=== PATIENT | female | born 1940 | race Asian ===

== ENCOUNTER 2017-05-30 16:58 | Inpatient (IN) | payer MEDICARE, OTHER ==
[~2017-05-30] VITALS: Ht 149.9 cm; Wt 65.0 kg
[2017-05-30 23:00] VITALS: BP 133/63; PULSE 77; RESP 18
[2017-05-30 23:24] VITALS: Ht 149.9 cm; Wt 65.0 kg
[2017-05-31] MEDS ORDERED: ONDANSETRON 4 MG INJ IV PRN (00:30)
[2017-05-31] MEDS: DEXTROSE 5%-0.9% NACL 1,000 ML IV SCH ×3 (01:24→20:30)
[2017-05-31] MEDS: CEFTRIAXONE 1 GM/50 ML (PMX) 50 ML IVPB SCH (01:24)
[2017-05-31] MEDS: morphine 4 MG/ML VIAL IV PRN ×3 (01:25→10:24)
[2017-05-31 03:24] VITALS: BP 111/55; RESP 18
[2017-05-31] MEDS: ONDANSETRON 4 MG INJ IV PRN (04:43)
[2017-05-31] MEDS: PANTOPRAZOLE 40 MG INJ IV SCH (05:32)
[2017-05-31 06:33] LABS: ADD SCAN DIFF NO
[2017-05-31 06:35] LABS: BASOPHILS % 0.2 % (0.0-2.0); HEMATOCRIT 43.3 % (37.0-47.0); HEMOGLOBIN 13.6 g/dl (12.0-16.0); LYMPHOCYTES % 5.7 % (15.0-51.0); MEAN CORPUSCULAR HEMOGLOBIN 26.6 pg (29.0-33.0); MEAN CORPUSCULAR HGB CONC 31.4 g/dl (32.0-37.0); MEAN CORPUSCULAR VOLUME 84.6 fl (82.0-101.0); MEAN PLATELET VOLUME 10.9 fl (7.4-10.4); MONOCYTE # 0.8 10^3/ul (0.3-0.9); MONOCYTES % 4.5 % (0.0-11.0); NEUTROPHIL # 15.7 10^3/ul (1.6-7.5); NEUTROPHILS % 89.1 % (39.0-77.0); PLATELET COUNT 265 10^3/UL (140-415); RED BLOOD COUNT 5.12 10^6/ul (4.20-5.40); RED CELL DISTRIBUTION WIDTH 13.4 % (11.5-14.5); WHITE BLOOD COUNT 17.7 10^3/ul (4.8-10.8)
[2017-05-31 07:09] LABS: ALBUMIN 4.2 g/dl (3.3-4.9); ALBUMIN/GLOBULIN RATIO 1.44; BILIRUBIN,INDIRECT 0.6 mg/dl (0-1.1); BILIRUBIN,TOTAL 0.6 mg/dl (0.2-1.3); CALCIUM 7.4 mg/dl (8.4-10.2); CREATININE 0.66 mg/dl (0.44-1.00); POTASSIUM 3.4 mmol/L (3.5-5.1); TOTAL PROTEIN 7.1 g/dl (6.1-8.1)
[2017-05-31] MEDS ORDERED: AMLO25PO MC (07:34)
[2017-05-31] MEDS ORDERED: DORZ10DR22 BOTH EYES (07:34)
[2017-05-31] MEDS ORDERED: LATA2.5D9 LEFT EYE (07:34)
[2017-05-31] MEDS ORDERED: LOSA50TA6 PO (07:34)
[2017-05-31] MEDS ORDERED: ASPI81TA3 PO (07:34)
[2017-05-31] MEDS ORDERED: FLUT9.9S NASAL (07:34)
[2017-05-31 07:39] VITALS: BP 134/62; RESP 18
[2017-05-31] MEDS ORDERED: morphine 4 MG/ML VIAL IV PRN (12:00)
[2017-05-31] MEDS ORDERED: HYDROmorphONE 1 MG/ML SYG IV PRN (14:30)
[2017-05-31 14:33] VITALS: BP 123/56; RESP 18
[2017-05-31] MEDS ORDERED: PIPER-TAZO 3.375 GM IV (PMX) 100 ML IVPB ONE (15:00)
[2017-05-31] MEDS ORDERED: POTASSIUM CHLORIDE 250 ML IVPB ONE (18:00)
[2017-05-31 20:47] VITALS: BP 130/70; RESP 18
[2017-05-31] MEDS ORDERED: LATANOPROST 0.005% 2.5 ML OPH LEFT EYE SCH (21:00)
[2017-05-31] MEDS ORDERED: DORZOLAMIDE/TIMOLOL 10 ML OPH BOTH EYES SCH (21:00)
--- NOTE | 2017-05-31 21:17 | RADRPT ---
PROCEDURE: MRCP. CLINICAL INDICATION: Pancreatitis. TECHNIQUE: MRCP was performed on a high field MRI scanner. Patient was examined without contrast. 3-D coronal rotating MIP images of the biliary tree are available for review. COMPARISON: Abdominal ultrasound 05/30/2017. CT abdomen/pelvis 05/30/2017. FINDINGS: The gallbladder is distended. There is no gallbladder wall thickening. Multiple round signal voids layer dependently within the gallbladder lumen compatible with cholelithiasis. There is no intrahe patic biliary duct dilatation. The common bile duct measures approximately 8 mm in greatest diamete r which is grossly unchanged from prior examinations. There is no discrete signal void within the c ommon bile duct to suggest the presence of choledocholithiasis. Normal tapering of the duct to the level of the ampulla is observed. There is no pancreatic duct dilatation. Marked peripancreatic ed phuc surrounding the pancreatic head and uncinate process is observed. Extensive edema is seen withi n the right retroperitoneum involving the anterior and posterior pararenal spaces. Perinephric porter a is also observed. This appears more prominent since prior CT. There is no evidence of organized fluid collection. The liver and spleen are homogeneous in signal intensity. The adrenal glands are unremarkable. The kidneys are symmetric in size and signal intensity. There is no hydronephrosis. The abdominal aorta is normal in caliber. The stomach is collapsed. The visualized portions of the small and large intestines are unremarkabl e. There is no ascites. Limited imaging of the lower thorax demonstrates a small right pleural effusion. IMPRESSION: Cholelithiasis with gallbladder distension. There is no gallbladder wall thickening. Common bile duct dilatation without evidence of choledocholithiasis. Extensive peripancreatic edema surrounding the head and uncinate process extending into the right re troperitoneum. Imaging findings are most compatible with acute pancreatitis. There is no evidence of organized fluid collection. RPTAT: HLST .Eugenie Bassett MD, Date Time Electronically viewed and signed by .Eugenie Bassett MD, on 05/31/2017 21:17 .T/
[2017-05-31] MEDS ORDERED: PIPER-TAZO 3.375 GM IV (PMX) 100 ML IVPB SCH (22:00)
[2017-05-31] MEDS: LATANOPROST 0.005% 2.5 ML OPH BOTH EYES SCH (22:25)
--- NOTE | 2017-05-31 23:38 | CONS ---
Date/Time of Note Date/Time of Note DATE: 05/31/17 TIME: 23:26 Assessment/Plan Assessment/Plan Chief Complaint/Hosp Course 1. Acute pancreatitis: likely 2/2 cholelithiasis; MRI abdomen: Cholelithiasis with gallbladder distension and no gallbladder wall thickening. Common bile duct dilatation without evidence of choledocholithiasis. Extensive peripancreatic edema surrounding the head and uncinate process extending into the right retroperitoneum. No evidence of organized fluid collection. -IV fluids -pain control -bowel rest -abx 2 Cholelithiasis -eventual lap amy when fully optimize 3. Leukocytosis: likely 2/2 above; elevated temp -supportive -as above 3.Hypokalemia -replete -monitor for cardiac arrhythmias 4. Hypocalcemia: likely 2/2 poor nutrition -nutrition optimization as patient condition permits -optimize lytes Patient seen and examined in collaboration with Dr. Zohaib Gaytan Problems: Consultation Date/Type/Reason Admit Date/Time May 30, 2017 at 22:37 Date of Consultation: May 31, 2017 Type of Consultation: surgical Reason for Consultation pancreatitis, gallstones Hx of Present Illness Christy Johnson is a 76 yo woman who presented to the ED with c/o epigastric pain radiating to right lower quadrant and back. Pain began after drinking chocolate drink on sunday and has been persistent since then. Associated symptoms include nausea and vomiting x1 with nonbloody nonbilious emesis. She denies fevers, chills, diarrhea, sob, cp, palpitations. No alleviating factors. MRI abdomen shows Cholelithiasis with gallbladder distension Extensive peripancreatic edema surrounding the head and uncinate process extending into the right retroperitoneum without evidence of organized fluid collection. Surgical consult was called to evaluate. Constitutional: No diaphoresis, No febrile Eyes: No visual change ENT: No pain, No sore throat Respiratory: No cough, No shortness of breath Cardiovascular: No chest pain, No lightheadedness Gastrointestinal: decreased appetite, passing stool (brown soft, non bloody), vomiting, No blood Genitourinary: No dysuria Musculoskeletal: back pain Skin: No bruising, No rash Neurologic: No headache, No seizure Psychological: No anxiety Past Medical History hypertension kidney stones uti sepsis bacteremia cataract glaucoma Past Surgical History kidney stone removal cataract removal Family History Significant Family History: no pertinent family hx Social History Alcohol Use: rarely Smoking Status: Never smoker Drug Use: none Exam/Review of Systems Vital Signs Vitals Vital Signs Date Time Temp Pulse Resp B/P Pulse Ox O2 Delivery O2 Flow Rate FiO2 05/31/17 20:47 99.7 92 18 130/70 96 05/30/17 23:00 Room Air Intake and Output 05/30/17 05/30/17 05/31/17 15:00 23:00 07:00 Intake Total 350 ml Balance 350 ml Exam Constitutional: alert, oriented, well developed Psych: anxiety (min) Head: atraumatic, normocephalic Eyes: nl lids, nl sclera ENMT: No mucosa pink and moist (pink and dry) Neck: supple Respiratory: clear to auscultation, normal air movement Cardiovascular: regular rate and rhythm, No murmurs/extra sounds Gastrointestinal: bowel sounds (x 4 quads), distended (min), rebound or guarding, tender Genitourinary - Female: No CVA tenderness Musculoskeletal: nl extremities to inspection Extremities: normal pulses, No edema Neurological: nl mental status, nl speech, nl strength Skin: nl turgor Results Result Diagram: 05/31/17 0552 05/31/17 0549 Results 24 hrs Laboratory Tests Test 05/31/17 05:49 05/31/17 05:52 Sodium Level 135 Potassium Level 3.4 L Chloride Level 106 Carbon Dioxide Level 22 Anion Gap 10 Blood Urea Nitrogen 15 Creatinine 0.66 Glucose Level 185 Calcium Level 7.4 L Total Bilirubin 0.6 Direct Bilirubin 0.00 Indirect Bilirubin 0.6 Aspartate Amino Transf (AST/SGOT) 33 Alanine Aminotransferase (ALT/SGPT) 23 Alkaline Phosphatase 49 Total Protein 7.1 Albumin 4.2 Globulin 2.90 Albumin/Globulin Ratio 1.44 Amylase Level 812 H Lipase 2611 H White Blood Count 17.7 H Red Blood Count 5.12 Hemoglobin 13.6 Hematocrit 43.3 Mean Corpuscular Volume 84.6 Mean Corpuscular Hemoglobin 26.6 L Mean Corpuscular Hemoglobin Concent 31.4 L Red Cell Distribution Width 13.4 Platelet Count 265 Mean Platelet Volume 10.9 H Neutrophils % 89.1 H Lymphocytes % 5.7 L Monocytes % 4.5 Eosinophils % 0.0 Basophils % 0.2 Nucleated Red Blood Cells % 0.0 Neutrophils # 15.7 H Lymphocytes # 1.0 Monocytes # 0.8 Eosinophils # 0.0 Basophils # 0.0 Nucleated Red Blood Cells # 0.0 Medications Medications Current Medications Ondansetron HCl 4 mg 4 mg Q6H PRN IV NAUSEA AND/OR VOMITING Last administered on 05/31/17 04:43; Admin Dose 4 MG; Start 05/31/17 at 00:30 Ceftriaxone Sodium 50 ml @ 100 mls/hr Q24H IVPB Last administered on 01:24; Admin Dose 100 MLS/HR; Start 05/31/17 at 01:00 Dextrose/Sodium Chloride (D5-NS) 1,000 ml @ 100 mls/hr Q10H IV Last administered on 05/31/17 11:45; Admin Dose 100 MLS/HR; Start 05/31/17 at 00:30 Pantoprazole (Protonix Iv) 40 mg DAILY@06 IV Last administered on 05/31/17 05: 32; Admin Dose 40 MG; Start 05/31/17 at 06:00 Acetaminophen (Tylenol Tab) 650 mg Q6H PRN PO PAIN AND OR ELEVATED TEMP; Start 05/31/17 at 00:30 Dorzolamide/ Timolol (Cosopt) 1 drop BID LEFT EYE ; Start 06/01/17 at 09:00 Hydromorphone HCl (Dilaudid) 0.5 mg Q3H PRN IV PAIN; Start 05/31/17 at 23:30 Latanoprost (Xalatan) 1 drop HS BOTH EYES Last administered on 05/31/17 22:25 ; Admin Dose 1 DROP; Start 06/01/17 at 21:00 DIDI MCCAIN NP May 31, 2017 23:37
[2017-06-01] MEDS: CEFTRIAXONE 1 GM/50 ML (PMX) 50 ML IVPB SCH (01:23)
[2017-06-01] MEDS: HYDROmorphONE 1 MG/ML SYG IV PRN ×7 (01:47→21:37)
[2017-06-01 01:57] VITALS: BP 142/82; PULSE 70; RESP 18
[2017-06-01 02:00] VITALS: BP 148/70; RESP 18
[2017-06-01] MEDS: DEXTROSE 5%-0.9% NACL 1,000 ML IV SCH ×3 (04:37→22:05)
[2017-06-01] MEDS: PANTOPRAZOLE 40 MG INJ IV SCH (05:18)
[2017-06-01 06:08] LABS: ADD SCAN DIFF NO
[2017-06-01 06:57] LABS: ALBUMIN 3.8 g/dl (3.3-4.9); ALBUMIN/GLOBULIN RATIO 1.35; BILIRUBIN,INDIRECT 0.7 mg/dl (0-1.1); BILIRUBIN,TOTAL 0.7 mg/dl (0.2-1.3); CALCIUM 6.7 mg/dl (8.4-10.2); CREATININE 0.87 mg/dl (0.44-1.00); POTASSIUM 4.2 mmol/L (3.5-5.1); TOTAL PROTEIN 6.6 g/dl (6.1-8.1)
[2017-06-01 08:08] VITALS: BP 144/67; RESP 22
--- NOTE | 2017-06-01 08:39 | PN ---
Date/Time of Note Date/Time of Note DATE: 06/01/17 TIME: 08:33 Assessment/Plan Lines/Catheters IV Catheter Type (from [facility], [place]): Peripheral IV Assessment/Plan Chief Complaint/Hosp Course 1. Acute pancreatitis: likely 2/2 cholelithiasis; MRI abdomen: Cholelithiasis with gallbladder distension and no gallbladder wall thickening. Common bile duct dilatation without evidence of choledocholithiasis. Extensive peripancreatic edema surrounding the head and uncinate process extending into the right retroperitoneum. No evidence of organized fluid collection; lipase improving -IV fluids -pain control -bowel rest -abx 2 Cholelithiasis -eventual lap amy when fully optimize 3. Leukocytosis: likely 2/2 above; elevated temp -supportive -as above 3.Hypokalemia: normalized -replete -monitor for cardiac arrhythmias 4. Hypocalcemia: likely 2/2 poor nutrition; -nutrition optimization as patient condition permits -optimize lytes Patient seen and examined in collaboration with Dr. Zohaib Gaytan Problems: Subjective 24 Hr Interval Summary Continues to have pain. No n/v/d, cp, sob, linder, dizziness/lightheadedness, palpitations, dysuria. + flatus. min temp overnight. Exam/Review of Systems Vital Signs Vitals Vital Signs Date Time Temp Pulse Resp B/P Pulse Ox O2 Delivery O2 Flow Rate FiO2 06/01/17 08:08 98.3 95 22 144/67 92 06/01/17 01:57 Room Air Intake and Output 05/31/17 05/31/17 06/01/17 15:00 23:00 07:00 Intake Total 700 ml 600 ml 9050 ml Output Total 30 ml 150 ml 50 ml Balance 670 ml 450 ml 9000 ml Exam Free Text/Dictation Constitutional: alert, oriented, well developed Psych: anxiety (min) Head: atraumatic, normocephalic Eyes: nl lids, nl sclera ENMT: No mucosa pink and moist (pink and dry) Neck: supple Respiratory: clear to auscultation, normal air movement Cardiovascular: regular rate and rhythm, No murmurs/extra sounds Gastrointestinal: bowel sounds (x 4 quads), distended (min), rebound or guarding, tender Genitourinary - Female: No CVA tenderness Musculoskeletal: nl extremities to inspection Extremities: normal pulses, No edema Neurological: nl mental status, nl speech, nl strength Skin: nl turgor, no discoloration Results Result Diagram: 05/31/17 0552 06/01/17 0538 DIDI MCCAIN NP Jun 01, 2017 08:39
[2017-06-01] MEDS: DORZOLAMIDE/TIMOLOL 10 ML OPH LEFT EYE SCH ×2 (08:46→20:32)
[2017-06-01 09:05] LABS: BASOPHIL # 0.1 10^3/ul (0.0-0.1); BASOPHILS % 0.3 % (0.0-2.0); HEMATOCRIT 41.4 % (37.0-47.0); HEMOGLOBIN 12.7 g/dl (12.0-16.0); LYMPHOCYTES # 1.4 10^3/ul (0.8-2.9); LYMPHOCYTES % 7.1 % (15.0-51.0); MEAN CORPUSCULAR HGB CONC 30.7 g/dl (32.0-37.0); MEAN CORPUSCULAR VOLUME 87.9 fl (82.0-101.0); MEAN PLATELET VOLUME 11.4 fl (7.4-10.4); MONOCYTE # 1.3 10^3/ul (0.3-0.9); MONOCYTES % 6.3 % (0.0-11.0); NEUTROPHIL # 17.3 10^3/ul (1.6-7.5); NEUTROPHILS % 85.7 % (39.0-77.0); PLATELET COUNT 250 10^3/UL (140-415); RED BLOOD COUNT 4.71 10^6/ul (4.20-5.40); RED CELL DISTRIBUTION WIDTH 13.8 % (11.5-14.5); WHITE BLOOD COUNT 20.2 10^3/ul (4.8-10.8)
--- NOTE | 2017-06-01 13:00 | PN ---
Date/Time of Note Date/Time of Note DATE: 06/01/17 TIME: 12:58 Assessment/Plan VTE Prophylaxis VTE Prophylaxis Intervention: SCD's Lines/Catheters IV Catheter Type (from Nrs): Peripheral IV Assessment/Plan Chief Complaint/Hosp Course 1. Acute pancreatitis. 2 Cholelithiasis 3.SIRS 3.electrolyte imbalance Problems: Subjective 24 Hr Interval Summary ENT: no complaints Respiratory: no complaints Gastrointestinal: decreased appetite, nausea, pain Skin: no complaints Endocrine: no complaints Exam/Review of Systems Vital Signs Vitals Vital Signs Date Time Temp Pulse Resp B/P Pulse Ox O2 Delivery O2 Flow Rate FiO2 06/01/17 08:08 98.3 95 22 144/67 92 06/01/17 01:57 Room Air Intake and Output 05/31/17 05/31/17 06/01/17 15:00 23:00 07:00 Intake Total 700 ml 600 ml 9050 ml Output Total 30 ml 150 ml 50 ml Balance 670 ml 450 ml 9000 ml Exam Constitutional: alert, oriented ENMT: nl external ears & nose Respiratory: clear to auscultation Gastrointestinal: rebound or guarding, tender Extremities: normal pulses Results Result Diagram: 06/01/17 0538 06/01/17 0538 Results 24 hrs Laboratory Tests Test 06/01/17 05:38 White Blood Count 20.2 H Red Blood Count 4.71 Hemoglobin 12.7 Hematocrit 41.4 Mean Corpuscular Volume 87.9 Mean Corpuscular Hemoglobin 27.0 L Mean Corpuscular Hemoglobin Concent 30.7 L Red Cell Distribution Width 13.8 Platelet Count 250 Mean Platelet Volume 11.4 H Neutrophils % 85.7 H Lymphocytes % 7.1 L Monocytes % 6.3 Eosinophils % 0.0 Basophils % 0.3 Nucleated Red Blood Cells % 0.0 Neutrophils # 17.3 H Lymphocytes # 1.4 Monocytes # 1.3 H Eosinophils # 0.0 Basophils # 0.1 Nucleated Red Blood Cells # 0.0 Sodium Level 136 Potassium Level 4.2 Chloride Level 112 H Carbon Dioxide Level 21 Anion Gap 7 L Blood Urea Nitrogen 24 H Creatinine 0.87 Glucose Level 189 Calcium Level 6.7 L Total Bilirubin 0.7 Direct Bilirubin 0.00 Indirect Bilirubin 0.7 Aspartate Amino Transf (AST/SGOT) 46 Alanine Aminotransferase (ALT/SGPT) 25 Alkaline Phosphatase 45 Total Protein 6.6 Albumin 3.8 Globulin 2.80 Albumin/Globulin Ratio 1.35 Amylase Level 457 #H Lipase 1259 H Medications Medications Current Medications Ondansetron HCl 4 mg 4 mg Q6H PRN IV NAUSEA AND/OR VOMITING Last administered on 05/31/17 04:43; Admin Dose 4 MG; Start 05/31/17 at 00:30 Ceftriaxone Sodium 50 ml @ 100 mls/hr Q24H IVPB Last administered on 01:23; Admin Dose 100 MLS/HR; Start 05/31/17 at 01:00 Dextrose/Sodium Chloride (D5-NS) 1,000 ml @ 125 mls/hr Q8H IV Last administered on 06/01/17 04:37; Admin Dose 100 MLS/HR; Start 05/31/17 at 00:30 Pantoprazole (Protonix Iv) 40 mg DAILY@06 IV Last administered on 06/01/17 05: 18; Admin Dose 40 MG; Start 05/31/17 at 06:00 Acetaminophen (Tylenol Tab) 650 mg Q6H PRN PO PAIN AND OR ELEVATED TEMP; Start 05/31/17 at 00:30 Dorzolamide/ Timolol (Cosopt) 1 drop BID LEFT EYE Last administered on 08:46; Admin Dose 1 DROP; Start 06/01/17 at 09:00 Hydromorphone HCl (Dilaudid) 0.5 mg Q3H PRN IV PAIN Last administered on 12:09; Admin Dose 0.5 MG; Start 05/31/17 at 23:30 Latanoprost (Xalatan) 1 drop HS BOTH EYES Last administered on 05/31/17 22:25 ; Admin Dose 1 DROP; Start 06/01/17 at 21:00 EAN INIGUEZ Jun 01, 2017 13:00
[2017-06-01] MEDS: CLONIDINE 0.1 MG/24 HR PATCH TRANSDERM SCH (14:57)
[2017-06-01 15:37] VITALS: BP 175/71; RESP 20
--- NOTE | 2017-06-01 16:51 | CONS ---
Date/Time of Note Date/Time of Note DATE: 06/01/17 TIME: 16:50 Consultation Date/Type/Reason Admit Date/Time May 30, 2017 at 22:37 Reason for Consultation This is Dr. Nelida Ramey dictating infectious consultation on Christy CASILLAS, date of admission is 05/31/2017 date of consultation the dictation is the reason for consultation is antibiotic management. Patient is a 76-year-old female who presented to the emergency room with epigastric pain radiating to the right lower quadrant and back. The pain has been persistent for the last day or 2. It is associated with nausea vomiting and nonbloody nonbilious emesis. She denies fever chills or diarrhea. An MRI of the abdomen showed cholelithiasis with gallbladder distention. She had extensive peripancreatic edema surrounding the head and uncinate process of the pancreas, extending into the right retroperitoneal area without evidence of fluid collection. A surgical consult was called to evaluate her abdomen. On admission her white count was 17.7 H&H 13.6 and 43.3 platelet count 265 BUN/ creatinine 15/0.66. Her amylase was 812 now 457 lipase 2611 now down to 1259. Patient was seen and examined by Dr. Zohaib Gaytan in the emergency room. Past medical history: 1 hypertension 2 kidney stones 3 UTI 4 cataracts 5 glaucoma 6 removal of kidney stones Family history noncontributory Social history: She does not smoke drink or abuse drugs Allergy: None to penicillin sulfa foods Medications per chart Review of systems noncontributory On physical examination patient is well-developed well-nourished female awake responsive in no acute distress. Vital signs are stable, she is afebrile SHEENT: Within normal limits Neck is supple Chest decreased breath sounds at the bases Heart without murmur gallop Abdomen is soft but tender diffusely, without rebound tenderness. Extremities: Without cyanosis clubbing or edema. Rectal genital exams deferred Neurological evaluation: Without focal neurological abnormalities. Impression plan: Patient was diagnosed with acute pancreatitis. She received Zosyn and then ceftriaxone in the emergency room. She was noted to have a white count of 17.7 and temperature of 99.7 on the . Her white count today is 20.2. We will draw 2 sets of blood cultures and continue ceftriaxone for now. Will observe on current therapy. Fever and leukocytosis most likely secondary to pancreatitis. Will dictate to the hospitalists and Dr. Gayatn. Thank you for this accessioner. . Constitutional: No diaphoresis, No febrile Eyes: No visual change ENT: no complaints Respiratory: no complaints Cardiovascular: No chest pain, No lightheadedness Gastrointestinal: decreased appetite, nausea, pain Genitourinary: No dysuria Musculoskeletal: back pain Skin: no complaints Neurologic: No headache, No seizure Endocrine: no complaints Psychological: anxiety (min) Social History Alcohol Use: rarely Smoking Status: Never smoker Drug Use: none Exam/Review of Systems Vital Signs Vitals Vital Signs Date Time Temp Pulse Resp B/P Pulse Ox O2 Delivery O2 Flow Rate FiO2 06/01/17 15:37 99.2 95 20 175/71 97 06/01/17 01:57 Room Air Intake and Output 05/31/17 05/31/17 06/01/17 15:00 23:00 07:00 Intake Total 700 ml 600 ml 9050 ml Output Total 30 ml 150 ml 50 ml Balance 670 ml 450 ml 9000 ml Results Result Diagram: 06/01/17 0538 06/01/17 0538 Results 24 hrs Laboratory Tests Test 06/01/17 05:38 White Blood Count 20.2 H Red Blood Count 4.71 Hemoglobin 12.7 Hematocrit 41.4 Mean Corpuscular Volume 87.9 Mean Corpuscular Hemoglobin 27.0 L Mean Corpuscular Hemoglobin Concent 30.7 L Red Cell Distribution Width 13.8 Platelet Count 250 Mean Platelet Volume 11.4 H Neutrophils % 85.7 H Lymphocytes % 7.1 L Monocytes % 6.3 Eosinophils % 0.0 Basophils % 0.3 Nucleated Red Blood Cells % 0.0 Neutrophils # 17.3 H Lymphocytes # 1.4 Monocytes # 1.3 H Eosinophils # 0.0 Basophils # 0.1 Nucleated Red Blood Cells # 0.0 Sodium Level 136 Potassium Level 4.2 Chloride Level 112 H Carbon Dioxide Level 21 Anion Gap 7 L Blood Urea Nitrogen 24 H Creatinine 0.87 Glucose Level 189 Calcium Level 6.7 L Total Bilirubin 0.7 Direct Bilirubin 0.00 Indirect Bilirubin 0.7 Aspartate Amino Transf (AST/SGOT) 46 Alanine Aminotransferase (ALT/SGPT) 25 Alkaline Phosphatase 45 Total Protein 6.6 Albumin 3.8 Globulin 2.80 Albumin/Globulin Ratio 1.35 Amylase Level 457 #H Lipase 1259 H Medications Medications Current Medications Ondansetron HCl 4 mg 4 mg Q6H PRN IV NAUSEA AND/OR VOMITING Last administered on 05/31/17 04:43; Admin Dose 4 MG; Start 05/31/17 at 00:30 Ceftriaxone Sodium 50 ml @ 100 mls/hr Q24H IVPB Last administered on 01:23; Admin Dose 100 MLS/HR; Start 05/31/17 at 01:00 Dextrose/Sodium Chloride (D5-NS) 1,000 ml @ 125 mls/hr Q8H IV Last administered on 06/01/17 13:46; Admin Dose 125 MLS/HR; Start 05/31/17 at 00:30 Pantoprazole (Protonix Iv) 40 mg DAILY@06 IV Last administered on 06/01/17 05: 18; Admin Dose 40 MG; Start 05/31/17 at 06:00 Acetaminophen (Tylenol Tab) 650 mg Q6H PRN PO PAIN AND OR ELEVATED TEMP; Start 05/31/17 at 00:30 Dorzolamide/ Timolol (Cosopt) 1 drop BID LEFT EYE Last administered on 08:46; Admin Dose 1 DROP; Start 06/01/17 at 09:00 Hydromorphone HCl (Dilaudid) 0.5 mg Q3H PRN IV PAIN Last administered on 15:31; Admin Dose 0.5 MG; Start 05/31/17 at 23:30 Latanoprost (Xalatan) 1 drop HS BOTH EYES Last administered on 05/31/17 22:25 ; Admin Dose 1 DROP; Start 06/01/17 at 21:00 Clonidine HCl (Catapres-Tts 1 Patch) 1 patch Q7D TRANSDERM Last administered on 06/01/17 14:57; Admin Dose 1 PATCH; Start 06/01/17 at 14:00 NELIDA RAMEY MD Jun 01, 2017 16:51
[2017-06-01 20:00] VITALS: BP 172/75; RESP 20
[2017-06-01] MEDS: LATANOPROST 0.005% 2.5 ML OPH BOTH EYES SCH (20:31)
[2017-06-02] VITALS (7 sets, daily range): BP systolic 147–178; BP diastolic 66–79; PULSE 100–102; RESP 18–22
[2017-06-02] MEDS: CEFTRIAXONE 1 GM/50 ML (PMX) 50 ML IVPB SCH (00:29)
[2017-06-02] MEDS: HYDROmorphONE 1 MG/ML SYG IV PRN ×7 (00:30→20:45)
[2017-06-02] MEDS: PANTOPRAZOLE 40 MG INJ IV SCH (05:31)
[2017-06-02] MEDS: DEXTROSE 5%-0.9% NACL 1,000 ML IV SCH ×3 (06:47→22:34)
[2017-06-02 06:55] LABS: ADD SCAN DIFF NO
[2017-06-02 07:01] LABS: ABNORMAL IP MESSAGE 1; HEMATOCRIT 34.2 % (37.0-47.0); HEMOGLOBIN 10.6 g/dl (12.0-16.0); MEAN CORPUSCULAR HEMOGLOBIN 27.3 pg (29.0-33.0); MEAN CORPUSCULAR VOLUME 88.1 fl (82.0-101.0); MEAN PLATELET VOLUME 11.5 fl (7.4-10.4); PLATELET COUNT 216 10^3/UL (140-415); RED BLOOD COUNT 3.88 10^6/ul (4.20-5.40)
[2017-06-02 07:16] LABS: CHOL/HDL RATIO 4.7 RATIO
[2017-06-02 07:37] LABS: CALCIUM 6.9 mg/dl (8.4-10.2); CREATININE 0.63 mg/dl (0.44-1.00); POTASSIUM 3.7 mmol/L (3.5-5.1)
[2017-06-02 07:46] LABS: CARCINOEMBRYONIC ANTIGEN 0.8 ng/ml (0.0-5.0)
[2017-06-02 07:50] LABS: CANCER ANTIGEN 19-9 26.3 U/ml (0.0-37.0)
[2017-06-02] MEDS: DORZOLAMIDE/TIMOLOL 10 ML OPH LEFT EYE SCH ×2 (08:29→20:45)
[2017-06-02 11:33] LABS: LYMPHOCYTES # 1.4 10^3/ul (0.8-2.9); MONOCYTE # 0.6 10^3/ul (0.3-0.9); NEUTROPHIL # 10.7 10^3/ul (1.6-7.5)
--- NOTE | 2017-06-02 11:57 | CONS ---
Date/Time of Note Date/Time of Note DATE: 06/02/17 TIME: 11:57 Assessment/Plan Assessment/Plan Chief Complaint/Hosp Course ID PROGRESS NOTE TOTAL ABX DAY #2 =>Ceftriaxone s/p Zosyn 24H INTERVAL SUMMARY * Sitting up in bed w/low flow O2 via NC, reports (+)wheezing earlier today cleared, still has upper mid-epigastric ABD pain * VSS, no fevers, doing OK, chart reviewed PHYSICAL EXAMINATION: GENERAL: VSS, NAD, no fevers HEENT: Unremarkable, no oral thrush NECK: Supple, CHEST: Equal chest rise bilaterally, without dyspnea on observation HEART: Pulse RRR ABDOMEN: Soft EXTREMITIES: Warm SKIN: Warm, dry ID ASSESSMENT: 77 yo F admitted with: 1. SIRS as evidenced by TMax 100.5, leukocytosis on admission 2/ #2 & #4 2. Acute pancreatitis most probably related to the passage of bile duct stone per GI 3. Cholelithiasis 4. Acute COPD exacerbation /Chronic asthmatic-bronchitis w/mild hypoxia and wheezing * Much improved w/Albuterol HHN 5. Electrolyte imbalance 6. Hx of nephrolithiasis and UTI -> UA not impressive for UTI INVASIVES: * PIV ABX ALLERGIES: AZITH CURRENT ABX: DAY #2 =>Ceftriaxone s/p Zosyn ID RECOMMENDATIONS: Continue current ABX & follow GI recommendations . . Problems: Consultation Date/Type/Reason Admit Date/Time May 30, 2017 at 22:37 Initial Consult Date 05/31/17 Type of Consultation: ID Exam/Review of Systems Vital Signs Vitals Vital Signs Date Time Temp Pulse Resp B/P Pulse Ox O2 Delivery O2 Flow Rate FiO2 06/02/17 07:43 97.5 93 20 152/66 99 06/01/17 01:57 Room Air Intake and Output 06/01/17 06/01/17 06/02/17 15:00 23:00 07:00 Intake Total 1000 ml 1000 ml 1050 ml Output Total 115 ml 1100 ml Balance 885 ml 1000 ml -50 ml Results Result Diagram: 06/02/17 0535 06/02/17 0607 Results 24 hrs Laboratory Tests Test 06/02/17 05:35 06/02/17 06:07 06/02/17 06:11 White Blood Count 16.0 #H Red Blood Count 3.88 L Hemoglobin 10.6 L Hematocrit 34.2 L Mean Corpuscular Volume 88.1 Mean Corpuscular Hemoglobin 27.3 L Mean Corpuscular Hemoglobin Concent 31.0 L Red Cell Distribution Width 14.0 Platelet Count 216 Mean Platelet Volume 11.5 H Neutrophils % 67.0 Band Neutrophils % 20.0 H Lymphocytes % 9.0 L Monocytes % 4.0 Eosinophils % Neutrophils # 10.7 H Lymphocytes # 1.4 Monocytes # 0.6 Eosinophils # Sodium Level 152 #H Potassium Level 3.7 Chloride Level 115 H Carbon Dioxide Level 25 Anion Gap 16 # Blood Urea Nitrogen 16 Creatinine 0.63 Glucose Level 175 Calcium Level 6.9 L Triglycerides Level 78 Cholesterol Level 129 LDL Cholesterol, Calculated 86 HDL Cholesterol 27 L Cholesterol/HDL Ratio 4.7 Carcinoembryonic Antigen 0.8 CA 19-9 Antigen 26.3 Medications Medications Current Medications Ondansetron HCl 4 mg 4 mg Q6H PRN IV NAUSEA AND/OR VOMITING Last administered on 05/31/17 04:43; Admin Dose 4 MG; Start 05/31/17 at 00:30 Ceftriaxone Sodium 50 ml @ 100 mls/hr Q24H IVPB Last administered on 00:29; Admin Dose 100 MLS/HR; Start 05/31/17 at 01:00 Dextrose/Sodium Chloride (D5-NS) 1,000 ml @ 125 mls/hr Q8H IV Last administered on 06/02/17 06:47; Admin Dose 125 MLS/HR; Start 05/31/17 at 00:30 Pantoprazole (Protonix Iv) 40 mg DAILY@06 IV Last administered on 06/02/17 05: 31; Admin Dose 40 MG; Start 05/31/17 at 06:00 Acetaminophen (Tylenol Tab) 650 mg Q6H PRN PO PAIN AND OR ELEVATED TEMP; Start 05/31/17 at 00:30 Dorzolamide/ Timolol (Cosopt) 1 drop BID LEFT EYE Last administered on 08:29; Admin Dose 1 DROP; Start 06/01/17 at 09:00 Hydromorphone HCl (Dilaudid) 0.5 mg Q3H PRN IV PAIN Last administered on 10:47; Admin Dose 0.5 MG; Start 05/31/17 at 23:30 Latanoprost (Xalatan) 1 drop HS BOTH EYES Last administered on 06/01/17 20:31 ; Admin Dose 1 DROP; Start 06/01/17 at 21:00 Clonidine HCl (Catapres-Tts 1 Patch) 1 patch Q7D TRANSDERM Last administered on 06/01/17 14:57; Admin Dose 1 PATCH; Start 06/01/17 at 14:00 LACY HOLM NP Jun 02, 2017 11:57
--- NOTE | 2017-06-02 12:33 | PN ---
Date/Time of Note Date/Time of Note DATE: 06/02/17 TIME: 12:26 Assessment/Plan Lines/Catheters IV Catheter Type (from [facility]): Peripheral IV Assessment/Plan Chief Complaint/Hosp Course 1. Acute pancreatitis: likely 2/2 cholelithiasis; MRI abdomen: Cholelithiasis with gallbladder distension and no gallbladder wall thickening. Common bile duct dilatation without evidence of choledocholithiasis. Extensive peripancreatic edema surrounding the head and uncinate process extending into the right retroperitoneum. No evidence of organized fluid collection; amylase/ lipase improving -IV fluids -pain control -bowel rest -abx 2 Cholelithiasis -eventual lap amy when fully optimize 3. Leukocytosis: likely 2/2 above; min temp overnight; improved; urine cultures ordered- patient with hesitancy -supportive -as above 3.Hypokalemia: normalized -replete -monitor for cardiac arrhythmias 4. Hypocalcemia: likely 2/2 poor nutrition; -nutrition optimization as patient condition permits -optimize lytes 5. Hypernatremia -judicious fluid management Patient seen and examined in collaboration with Dr. Zohaib Gaytan Problems: Subjective 24 Hr Interval Summary Min temp overnight. Continuing to have abdominal pain. wheezing. +flatus/ no bm , No linder, dizziness, sz, sob, cp, palpitations,n/v/d, chills. Exam/Review of Systems Vital Signs Vitals Vital Signs Date Time Temp Pulse Resp B/P Pulse Ox O2 Delivery O2 Flow Rate FiO2 06/02/17 07:43 97.5 93 20 152/66 99 06/01/17 01:57 Room Air Intake and Output 06/01/17 06/01/17 06/02/17 15:00 23:00 07:00 Intake Total 1000 ml 1000 ml 1050 ml Output Total 115 ml 1100 ml Balance 885 ml 1000 ml -50 ml Exam Free Text/Dictation Constitutional: alert, oriented, well developed, diaphoretic Psych: anxiety (min) Head: atraumatic, normocephalic Eyes: nl lids, nl sclera ENMT: No mucosa pink and moist (pink and dry) Neck: supple Respiratory: wheezing Cardiovascular: regular rate and rhythm, No murmurs/extra sounds Gastrointestinal: bowel sounds (x 4 quads), distended (min), rebound or guarding, tender Genitourinary - Female: No CVA tenderness Musculoskeletal: nl extremities to inspection Extremities: normal pulses, No edema Neurological: nl mental status, nl speech, nl strength Skin: nl turgor, no discoloration Results Result Diagram: 06/02/17 0535 06/02/17 0607 DIDI MCCAIN NP Jun 02, 2017 12:33
--- NOTE | 2017-06-02 12:36 | CONS ---
Date/Time of Note Date/Time of Note DATE: 06/02/17 TIME: 12:33 Assessment/Plan Assessment/Plan Additional Assessment/Plan 1. Acute pancreatitis most probably related to the passage of bile duct stone 2. Hypertension 3. Kidneys stone by history 4. UTI 5. Leukocytosis which is trending down. Plan Patient's CA 199 and CEA both were within normal limit Her triglycerides level was also normal. Given the history of gallstone and mildly dilated bile duct I am more in favor of biliary pancreatitis. Once pancreatitis is resolved would prefer to have cholecystectomy to prevent the second attack in the future Based on MRI and CT scan I doubt patient has autoimmune pancreatitis. Due to malfunctioning of the dictation, dictator reports are not coming on time in the computer. Consultation Date/Type/Reason Admit Date/Time May 30, 2017 at 22:37 Initial Consult Date 05/31/17 Type of Consultation: ID 24 HR Interval Summary Free Text/Dictation Patient still has significant abdominal pain. No nausea no vomiting no GI bleeding No chest pain or shortness of breath Exam/Review of Systems Vital Signs Vitals Vital Signs Date Time Temp Pulse Resp B/P Pulse Ox O2 Delivery O2 Flow Rate FiO2 06/02/17 07:43 97.5 93 20 152/66 99 06/01/17 01:57 Room Air Intake and Output 06/01/17 06/01/17 06/02/17 15:00 23:00 07:00 Intake Total 1000 ml 1000 ml 1050 ml Output Total 115 ml 1100 ml Balance 885 ml 1000 ml -50 ml Exam Constitutional: alert, oriented, well developed Psych: nl mood/affect, no complaints Head: atraumatic, normocephalic Eyes: EOMI, PERRL, nl conjunctiva, nl lids, nl sclera ENMT: nl external ears & nose, nl lips & teeth, nl nasal mucosa & septum Neck: non-tender, supple Respiratory: clear to auscultation, normal air movement Cardiovascular: nl pulses, regular rate and rhythm Gastrointestinal: nl liver, spleen, non-tender, soft Musculoskeletal: nl extremities to inspection, nl gait and stance Extremities: normal pulses Neurological: [employer] II-XII intact, nl mental status, nl speech, nl strength Skin: nl turgor, No rash or lesions Lymph: nl lymph nodes Results Result Diagram: 06/02/17 0535 06/02/17 0607 Results 24 hrs Laboratory Tests Test 06/02/17 05:35 06/02/17 06:07 06/02/17 06:11 White Blood Count 16.0 #H Red Blood Count 3.88 L Hemoglobin 10.6 L Hematocrit 34.2 L Mean Corpuscular Volume 88.1 Mean Corpuscular Hemoglobin 27.3 L Mean Corpuscular Hemoglobin Concent 31.0 L Red Cell Distribution Width 14.0 Platelet Count 216 Mean Platelet Volume 11.5 H Neutrophils % 67.0 Band Neutrophils % 20.0 H Lymphocytes % 9.0 L Monocytes % 4.0 Eosinophils % Neutrophils # 10.7 H Lymphocytes # 1.4 Monocytes # 0.6 Eosinophils # Sodium Level 152 #H Potassium Level 3.7 Chloride Level 115 H Carbon Dioxide Level 25 Anion Gap 16 # Blood Urea Nitrogen 16 Creatinine 0.63 Glucose Level 175 Calcium Level 6.9 L Triglycerides Level 78 Cholesterol Level 129 LDL Cholesterol, Calculated 86 HDL Cholesterol 27 L Cholesterol/HDL Ratio 4.7 Carcinoembryonic Antigen 0.8 CA 19-9 Antigen 26.3 Medications Medications Current Medications Ondansetron HCl 4 mg 4 mg Q6H PRN IV NAUSEA AND/OR VOMITING Last administered on 05/31/17 04:43; Admin Dose 4 MG; Start 05/31/17 at 00:30 Ceftriaxone Sodium 50 ml @ 100 mls/hr Q24H IVPB Last administered on 00:29; Admin Dose 100 MLS/HR; Start 05/31/17 at 01:00 Dextrose/Sodium Chloride (D5-NS) 1,000 ml @ 125 mls/hr Q8H IV Last administered on 06/02/17 06:47; Admin Dose 125 MLS/HR; Start 05/31/17 at 00:30 Pantoprazole (Protonix Iv) 40 mg DAILY@06 IV Last administered on 06/02/17 05: 31; Admin Dose 40 MG; Start 05/31/17 at 06:00 Acetaminophen (Tylenol Tab) 650 mg Q6H PRN PO PAIN AND OR ELEVATED TEMP; Start 05/31/17 at 00:30 Dorzolamide/ Timolol (Cosopt) 1 drop BID LEFT EYE Last administered on 08:29; Admin Dose 1 DROP; Start 06/01/17 at 09:00 Hydromorphone HCl (Dilaudid) 0.5 mg Q3H PRN IV PAIN Last administered on 10:47; Admin Dose 0.5 MG; Start 05/31/17 at 23:30 Latanoprost (Xalatan) 1 drop HS BOTH EYES Last administered on 06/01/17 20:31 ; Admin Dose 1 DROP; Start 06/01/17 at 21:00 Clonidine HCl (Catapres-Tts 1 Patch) 1 patch Q7D TRANSDERM Last administered on 06/01/17 14:57; Admin Dose 1 PATCH; Start 06/01/17 at 14:00 KILEY MATTHEW MD Jun 02, 2017 12:36
[2017-06-02 12:42] LABS: AMYLASE 301 U/L (11-123)
[2017-06-02 13:12] LABS: ADD UMIC YES; UR BILIRUBIN (Dip) NEGATIVE (NEGATIVE); UR BLOOD (Dip) 3+ (NEGATIVE); UR CLARITY CLEAR (CLEAR); UR COLOR LT. YELLOW (YELLOW); UR KETONES (Dip) NEGATIVE (NEGATIVE); UR LEUKOCYTE ESTERASE (Dip) NEGATIVE (NEGATIVE); UR NITRITE (Dip) NEGATIVE (NEGATIVE); UR TOTAL PROTEIN (Dip) 1+ (NEGATIVE); UR UROBILINOGEN (Dip) 0.2 E.U./dL (0.1-1.0)
[2017-06-02] MEDS ORDERED: ALBUTEROL 0.083% (NEB) 2.5 MG/3 ML AMP HHN SCH (14:00)
[2017-06-02] MEDS ORDERED: IPRATROPIUM (NEB) 0.5 MG/2.5 ML AMP HHN SCH (14:00)
[2017-06-02] MEDS: ALBUTEROL/IPRATROPIUM (NEB) 3 ML AMP HHN SCH ×2 (14:27→20:17)
--- NOTE | 2017-06-02 17:49 | PN ---
Date/Time of Note Date/Time of Note DATE: 06/02/17 TIME: 17:43 Assessment/Plan VTE Prophylaxis VTE Prophylaxis Intervention: ambulation Lines/Catheters IV Catheter Type (from [facility]): Peripheral IV Assessment/Plan Chief Complaint/Hosp Course 1. Acute pancreatitis. 2 Cholelithiasis 3.SIRS 3.electrolyte imbalance Problems: Assessment/Plan 1. continue current regime 2. Pain control Subjective 24 Hr Interval Summary Constitutional: improved Respiratory: no complaints, shortness of breath, wheezing Exam/Review of Systems Vital Signs Vitals Vital Signs Date Time Temp Pulse Resp B/P Pulse Ox O2 Delivery O2 Flow Rate FiO2 06/02/17 17:03 2.0 06/02/17 16:27 97.3 89 22 177/72 98 06/02/17 14:28 Nasal Cannula Intake and Output 06/01/17 06/01/17 06/02/17 15:00 23:00 07:00 Intake Total 1000 ml 1000 ml 1050 ml Output Total 115 ml 1100 ml Balance 885 ml 1000 ml -50 ml Exam Constitutional: alert, oriented Neck: supple Respiratory: clear to auscultation Gastrointestinal: distended, soft, surgical scars Results Result Diagram: 06/02/17 0535 06/02/17 0607 Results 24 hrs Laboratory Tests Test 06/02/17 05:35 06/02/17 06:07 06/02/17 06:11 06/02/17 12:50 White Blood Count 16.0 #H Red Blood Count 3.88 L Hemoglobin 10.6 L Hematocrit 34.2 L Mean Corpuscular Volume 88.1 Mean Corpuscular Hemoglobin 27.3 L Mean Corpuscular Hemoglobin Concent 31.0 L Red Cell Distribution Width 14.0 Platelet Count 216 Mean Platelet Volume 11.5 H Neutrophils % 67.0 Band Neutrophils % 20.0 H Lymphocytes % 9.0 L Monocytes % 4.0 Eosinophils % Neutrophils # 10.7 H Lymphocytes # 1.4 Monocytes # 0.6 Eosinophils # Sodium Level 152 #H Potassium Level 3.7 Chloride Level 115 H Carbon Dioxide Level 25 Anion Gap 16 # Blood Urea Nitrogen 16 Creatinine 0.63 Glucose Level 175 Calcium Level 6.9 L Triglycerides Level 78 Cholesterol Level 129 LDL Cholesterol, Calculated 86 HDL Cholesterol 27 L Cholesterol/HDL Ratio 4.7 Amylase Level 301 #H Lipase 657 H Carcinoembryonic Antigen 0.8 CA 19-9 Antigen 26.3 Urine Color LT. YELLOW Urine Clarity CLEAR Urine pH 6.0 Urine Specific [place] 1.020 Urine Ketones NEGATIVE Urine Nitrite NEGATIVE Urine Bilirubin NEGATIVE Urine Urobilinogen 0.2 E.U./dL Urine Leukocyte Esterase NEGATIVE Urine Microscopic RBC 2-5 Urine Hemoglobin 3+ H Urine Glucose 0.25% H Urine Total Protein 1+ H Medications Medications Current Medications Ondansetron HCl 4 mg 4 mg Q6H PRN IV NAUSEA AND/OR VOMITING Last administered on 05/31/17 04:43; Admin Dose 4 MG; Start 05/31/17 at 00:30 Ceftriaxone Sodium 50 ml @ 100 mls/hr Q24H IVPB Last administered on 00:29; Admin Dose 100 MLS/HR; Start 05/31/17 at 01:00 Dextrose/Sodium Chloride (D5-NS) 1,000 ml @ 125 mls/hr Q8H IV Last administered on 06/02/17 15:47; Admin Dose 125 MLS/HR; Start 05/31/17 at 00:30 Pantoprazole (Protonix Iv) 40 mg DAILY@06 IV Last administered on 06/02/17 05: 31; Admin Dose 40 MG; Start 05/31/17 at 06:00 Acetaminophen (Tylenol Tab) 650 mg Q6H PRN PO PAIN AND OR ELEVATED TEMP; Start 05/31/17 at 00:30 Dorzolamide/ Timolol (Cosopt) 1 drop BID LEFT EYE Last administered on 08:29; Admin Dose 1 DROP; Start 06/01/17 at 09:00 Hydromorphone HCl (Dilaudid) 0.5 mg Q3H PRN IV PAIN Last administered on 17:32; Admin Dose 0.5 MG; Start 05/31/17 at 23:30 Latanoprost (Xalatan) 1 drop HS BOTH EYES Last administered on 06/01/17 20:31 ; Admin Dose 1 DROP; Start 06/01/17 at 21:00 Clonidine HCl (Catapres-Tts 1 Patch) 1 patch Q7D TRANSDERM Last administered on 06/01/17 14:57; Admin Dose 1 PATCH; Start 06/01/17 at 14:00 EAN INIGUEZ Jun 02, 2017 17:48
[2017-06-02 18:25] LABS: ADD SCAN DIFF NO
[2017-06-02 18:27] LABS: ABNORMAL IP MESSAGE 1; BASOPHIL # 0.1 10^3/ul (0.0-0.1); BASOPHILS % 0.4 % (0.0-2.0); EOSINOPHILS % 0.1 % (0.0-7.0); HEMATOCRIT 34.5 % (37.0-47.0); HEMOGLOBIN 10.9 g/dl (12.0-16.0); LYMPHOCYTES # 0.7 10^3/ul (0.8-2.9); LYMPHOCYTES % 4.9 % (15.0-51.0); MEAN CORPUSCULAR HEMOGLOBIN 27.7 pg (29.0-33.0); MEAN CORPUSCULAR HGB CONC 31.6 g/dl (32.0-37.0); MEAN CORPUSCULAR VOLUME 87.8 fl (82.0-101.0); MONOCYTE # 1.1 10^3/ul (0.3-0.9); NEUTROPHIL # 11.9 10^3/ul (1.6-7.5); NEUTROPHILS % 85.8 % (39.0-77.0); PLATELET COUNT 222 10^3/UL (140-415); RED BLOOD COUNT 3.93 10^6/ul (4.20-5.40); RED CELL DISTRIBUTION WIDTH 13.7 % (11.5-14.5); WHITE BLOOD COUNT 13.9 10^3/ul (4.8-10.8)
[2017-06-02] MEDS: hydrALAzine 20 MG INJ IV SCH ×2 (19:10→23:11)
[2017-06-02] MEDS: ONDANSETRON 4 MG INJ IV PRN (20:36)
[2017-06-02] MEDS: LATANOPROST 0.005% 2.5 ML OPH BOTH EYES SCH (20:46)
[2017-06-02] MEDS: ACETAMINOPHEN 325 MG TAB PO PRN (23:33)
[2017-06-03] VITALS (12 sets, daily range): BP systolic 132–152; BP diastolic 6–90; PULSE 94–114; RESP 16–24
[2017-06-03] MEDS: ALBUTEROL/IPRATROPIUM (NEB) 3 ML AMP HHN SCH ×4 (01:05→19:35)
[2017-06-03] MEDS: CEFTRIAXONE 1 GM/50 ML (PMX) 50 ML IVPB SCH (01:16)
[2017-06-03] MEDS: HYDROmorphONE 1 MG/ML SYG IV PRN ×6 (01:16→21:57)
[2017-06-03] MEDS: DEXTROSE 5%-0.9% NACL 1,000 ML IV SCH (02:51)
[2017-06-03] MEDS: PANTOPRAZOLE 40 MG INJ IV SCH (06:18)
[2017-06-03] MEDS: hydrALAzine 20 MG INJ IV SCH ×3 (06:18→18:13)
[2017-06-03 06:35] LABS: ALBUMIN 3.7 g/dl (3.3-4.9); ALBUMIN/GLOBULIN RATIO 1.27; BILIRUBIN,DIRECT 0.4 mg/dl (0.00-0.20); BILIRUBIN,INDIRECT 1.4 mg/dl (0-1.1); BILIRUBIN,TOTAL 1.8 mg/dl (0.2-1.3); CALCIUM 7.4 mg/dl (8.4-10.2); CREATININE 0.6 mg/dl (0.44-1.00); TOTAL PROTEIN 6.6 g/dl (6.1-8.1)
[2017-06-03] MEDS: ACETAMINOPHEN 325 MG TAB PO PRN (07:05)
[2017-06-03] MEDS ORDERED: FUROSEMIDE 20 MG INJ IV STA (07:18)
[2017-06-03] MEDS ORDERED: POTASSIUM CHLORIDE (SR) 20 MEQ TAB PO STA (07:25)
--- NOTE | 2017-06-03 08:16 | RADRPT ---
PROCEDURE: XR Chest. CLINICAL INDICATION: 77 real female with wheezing and shortness of breath. TECHNIQUE: Single frontal view of the chest was obtained. COMPARISON: None FINDINGS: The soft tissues are generous. There are degenerative osteophytes in the thoracic spine. The left ventricle is enlarged. The cardiomediastinal silhouette and hilar structures are normal. The pulmon ruddy vasculature is equilibrated. There are vascular calcifications in the aortic arch. There are pl ate-like densities consistent with atelectasis in the bases of the lungs. A small right pleural eff usion is suspected. Thickening of the minor fissure from pleural scarring can have a similar appear ance. IMPRESSION: 1. Left ventricular enlargement with increased pulmonary vascularity suspicious for mild CHF with love bsegmental atelectasis in the bases of the lungs and elevation of the right diaphragm. 2. Atherosclerosis aortic arch. 3. Spondylosis of the thoracic spine. RPTAT:AAJJ Physician Meghann Date Time Electronically viewed and signed by Kingston Russ Physician on 06/03/2017 08:15 JOSELITO/
--- NOTE | 2017-06-03 08:43 | HP ---
DATE OF ADMISSION: 05/30/2017 HISTORY OF PRESENT ILLNESS: The patient was transferred from the transferring hospital when she was seen there with abdominal pain. The patient is noted to have lactate 0.80. The patient also has earlier lactate 3.6. The patient's laboratory: WBC 12, hematocrit 38.9, platelet count 236. The patient's sodium 142, potassium of 4.7, creatinine 0.75. The patient's albumin 4.4. The patient is noted to have alkaline phosphatase 55 and the patient received morphine, Zofran, saline at the transferring hospital. PAST MEDICAL HISTORY: Positive for hypertension. The patient has a history of eye surgery, history of _ surgery. SOCIAL HISTORY: Negative. ALLERGIES: AZITHROMYCIN. MEDICATIONS: 1. Tylenol. 2. Amlodipine. 3. Aspirin. 4. Eye drops. 5. Fluticasone. 6. Losartan. REVIEW OF SYSTEMS: HEENT: Unremarkable. RESPIRATORY: Unremarkable. CARDIOVASCULAR: Unremarkable. GASTROINTESTINAL: Abdomen: Nausea. Abdominal pain. No masses. EXTREMITIES: Unremarkable. NEUROLOGIC: LOBSTER CATCHER unremarkable. PHYSICAL EXAMINATION: GENERAL APPEARANCE: The patient is awake, alert. VITAL SIGNS: Vital signs are stable. HEENT: Head is atraumatic, normocephalic. Pupils equal, reactive to light. NECK: Supple. There is no JVD. LUNGS: Clear. CARDIAC: CVS: S1, S2 normal. ABDOMEN: Soft. Tender in the right upper quadrant and epigastric area. Bowel sounds are positive. EXTREMITIES: No cyanosis, clubbing or edema. NEUROLOGIC: LOBSTER CATCHER: The patient is awake, alert. No focal deficits. DATA: As mentioned above. The patient's lipase 2830, glucose 174, WBC 12. The patient's CT abdomen and pelvis with contrast shows cholelithiasis with peripancreatic inflammatory changes and fluid surrounding the peripancreatic head, duodenum and fluid tracking into the right anterior pararenal space. The patient has a dilated common bile duct. The CBD stenosis, a stone is of concern. The patient also had ultrasound of the abdomen, shows cholelithiasis, mild common bile duct dilatation. IMPRESSION: 1. The patient has acute pancreatitis, possible gallstone pancreatitis. 2. Rule out common bile duct stone. 3. Hyperglycemia and leukocytosis. 4. Electrolyte imbalance. 5. History of hypertension. 6. The patient also has dyspepsia. EKG shows sinus bradycardia, rate of 49. PLAN: Keep her n.p.o., IV fluids. Antibiotic. Pain medication. Surgical consultation. Orders were done. Dictated By: Jonathon Whitaker MD /[email or web address]/bon /Document#: [id number] [email or web address]
--- NOTE | 2017-06-03 09:47 | PN ---
Date/Time of Note Date/Time of Note DATE: 06/03/17 TIME: 09:39 Assessment/Plan Lines/Catheters IV Catheter Type (from [facility]): Peripheral IV Assessment/Plan Chief Complaint/Hosp Course 1. Acute pancreatitis: likely 2/2 cholelithiasis; MRI abdomen: Cholelithiasis with gallbladder distension and no gallbladder wall thickening. Common bile duct dilatation without evidence of choledocholithiasis. Extensive peripancreatic edema surrounding the head and uncinate process extending into the right retroperitoneum. No evidence of organized fluid collection; amylase/ lipase improving; pain improved -judicious IV fluids -pain control -bowel rest -abx 2 Cholelithiasis: total bili increasing -eventual lap amy when fully optimize 3. Leukocytosis with bandemia: likely 2/2 above; min temp overnight; improved; improved -supportive -as above 3.Hypokalemia: lasix given -replete -monitor for cardiac arrhythmias 4. Hypocalcemia: likely 2/2 poor nutrition; -nutrition optimization as patient condition permits -optimize lytes 5. Hypernatremia -judicious fluid management 6. Shortness of breath: fluid overload; CXR: Left ventricular enlargement with increased pulmonary vascularity suspicious for mild CHF with subsegmental atelectasis in lung bases; -diuretics -breathing tx -judicious iv fluids Patient seen and examined in collaboration with Dr. Zohaib Gaytan Problems: Subjective 24 Hr Interval Summary No fevers. Abdominal pain improved. No wheezing +flatus/ no bm, No linder, dizziness , sz, sob, cp, palpitations,n/v/d, chills. Exam/Review of Systems Vital Signs Vitals Vital Signs Date Time Temp Pulse Resp B/P Pulse Ox O2 Delivery O2 Flow Rate FiO2 06/03/17 08:30 116 16 97 Nasal Cannula 2.0 06/03/17 07:59 97.7 132/61 Intake and Output 06/02/17 06/02/17 06/03/17 15:00 23:00 07:00 Intake Total 1000 ml 1250 ml Output Total 400 ml Balance 600 ml 1250 ml Exam Free Text/Dictation Constitutional: alert, oriented, well developed Psych: nl mood Head: atraumatic, normocephalic Eyes: nl lids, nl sclera ENMT: No mucosa pink and moist (pink and dry) Neck: supple Respiratory: crackles Cardiovascular: regular rate and rhythm, No murmurs/extra sounds Gastrointestinal: bowel sounds (x 4 quads), distended (min), rebound or guarding, min tender Genitourinary - Female: No CVA tenderness Musculoskeletal: nl extremities to inspection Extremities: normal pulses, No edema Neurological: nl mental status, nl speech, nl strength Skin: nl turgor, no discoloration Results Result Diagram: 06/02/17 1805 06/03/17 0528 DIDI MCCAIN NP Jun 03, 2017 09:47
[2017-06-03] MEDS: DORZOLAMIDE/TIMOLOL 10 ML OPH LEFT EYE SCH ×2 (10:28→20:43)
--- NOTE | 2017-06-03 13:19 | CONS ---
Date/Time of Note Date/Time of Note DATE: 06/03/17 TIME: 13:11 Assessment/Plan Assessment/Plan Chief Complaint/Hosp Course Assessment/Plan Chief Complaint/Hosp Course ID PROGRESS NOTE TOTAL ABX DAY #2 =>Ceftriaxone s/p Zosyn 24H INTERVAL SUMMARY * Sitting up in the chair. Complains of Generalized Abdominal Pain and Right Upper Quadrant Abdominal Pain. PHYSICAL EXAMINATION: GENERAL: VSS, NAD, no fevers HEENT: Unremarkable, no oral thrush NECK: Supple, CHEST: Equal chest rise bilaterally, without dyspnea on observation HEART: Pulse RRR ABDOMEN: Soft EXTREMITIES: Warm SKIN: Warm, dry ID ASSESSMENT: 77 yo F admitted with: 1. SIRS as evidenced by TMax 100.5, leukocytosis on admission 2/2 #2 & #4 2. Acute pancreatitis most probably related to the passage of bile duct stone per GI 3. Cholelithiasis 4. Acute COPD exacerbation /Chronic asthmatic-bronchitis w/mild hypoxia and wheezing * Much improved w/Albuterol HHN 5. Electrolyte imbalance 6. Hx of nephrolithiasis and UTI -> UA not impressive for UTI 7. Generalized Acute Abdominal Pain and Right Upper Quadrant Abdominal Pain. INVASIVES: * PIV ABX ALLERGIES: AZITH CURRENT ABX: DAY #2 =>Ceftriaxone s/p Zosyn ID RECOMMENDATIONS: 1.Continue current ABX. 2. Follow GI recommendations 3. Pain Management. 4. Monitor Labs. Problems: Consultation Date/Type/Reason Admit Date/Time May 30, 2017 at 22:37 Initial Consult Date 05/31/17 Type of Consultation: ID Exam/Review of Systems Vital Signs Vitals Vital Signs Date Time Temp Pulse Resp B/P Pulse Ox O2 Delivery O2 Flow Rate FiO2 06/03/17 12:52 103 16 152/90 97 Nasal Cannula 06/03/17 08:30 2.0 06/03/17 07:59 97.7 Intake and Output 06/02/17 06/02/17 06/03/17 14:59 22:59 06:59 Intake Total 1000 ml 1250 ml Output Total 400 ml Balance 600 ml 1250 ml Results Result Diagram: 06/02/17 1805 06/03/17 0528 Results 24 hrs Laboratory Tests Test 06/02/17 18:05 06/03/17 05:28 White Blood Count 13.9 H Red Blood Count 3.93 L Hemoglobin 10.9 L Hematocrit 34.5 L Mean Corpuscular Volume 87.8 Mean Corpuscular Hemoglobin 27.7 L Mean Corpuscular Hemoglobin Concent 31.6 L Red Cell Distribution Width 13.7 Platelet Count 222 Mean Platelet Volume 11.0 H Neutrophils % 85.8 H Lymphocytes % 4.9 L Monocytes % 8.0 Eosinophils % 0.1 Basophils % 0.4 Nucleated Red Blood Cells % 0.0 Neutrophils # 11.9 H Lymphocytes # 0.7 L Monocytes # 1.1 H Eosinophils # 0.0 Basophils # 0.1 Nucleated Red Blood Cells # 0.0 Sodium Level 152 H Potassium Level 3.0 L Chloride Level 113 H Carbon Dioxide Level 28 Anion Gap 14 Blood Urea Nitrogen 14 Creatinine 0.60 Glucose Level 136 Calcium Level 7.4 L Total Bilirubin 1.8 H Direct Bilirubin 0.40 #H Indirect Bilirubin 1.4 H Aspartate Amino Transf (AST/SGOT) 73 H Alanine Aminotransferase (ALT/SGPT) 27 Alkaline Phosphatase 54 Total Protein 6.6 Albumin 3.7 Globulin 2.90 Albumin/Globulin Ratio 1.27 Lipase 244 Medications Medications Current Medications Ondansetron HCl 4 mg 4 mg Q6H PRN IV NAUSEA AND/OR VOMITING Last administered on 06/02/17 20:36; Admin Dose 4 MG; Start 05/31/17 at 00:30 Ceftriaxone Sodium 50 ml @ 100 mls/hr Q24H IVPB Last administered on 01:16; Admin Dose 100 MLS/HR; Start 05/31/17 at 01:00 Dextrose/Sodium Chloride (D5-NS) 1,000 ml @ 75 mls/hr [id number] IV Last administered on 06/03/17 02:51; Admin Dose 125 MLS/HR; Start 05/31/17 at 00:30 Pantoprazole (Protonix Iv) 40 mg DAILY@06 IV Last administered on 06/03/17 06: 18; Admin Dose 40 MG; Start 05/31/17 at 06:00 Acetaminophen (Tylenol Tab) 650 mg Q6H PRN PO PAIN AND OR ELEVATED TEMP Last administered on 06/03/17 07:05; Admin Dose 650 MG; Start 05/31/17 at 00:30 Dorzolamide/ Timolol (Cosopt) 1 drop BID LEFT EYE Last administered on 10:28; Admin Dose 1 DROP; Start 06/01/17 at 09:00 Hydromorphone HCl (Dilaudid) 0.5 mg Q3H PRN IV PAIN Last administered on 10:29; Admin Dose 0.5 MG; Start 05/31/17 at 23:30 Latanoprost (Xalatan) 1 drop HS BOTH EYES Last administered on 06/02/17 20:46 ; Admin Dose 1 DROP; Start 06/01/17 at 21:00 Clonidine HCl (Catapres-Tts 1 Patch) 1 patch Q7D TRANSDERM Last administered on 06/01/17 14:57; Admin Dose 1 PATCH; Start 06/01/17 at 14:00 Hydralazine HCl (Apresoline) 5 mg Q6 IV Last administered on 06/03/17 12:52; Admin Dose 5 MG; Start 06/02/17 at 18:00 SAEID THAO NP Jun 03, 2017 13:19
--- NOTE | 2017-06-03 14:18 | CONS ---
Date/Time of Note Date/Time of Note DATE: 06/03/17 TIME: 14:17 Assessment/Plan Assessment/Plan Additional Assessment/Plan Additional Assessment/Plan 1. Acute pancreatitis most probably related to the passage of bile duct stone 2. Hypertension 3. Kidneys stone by history 4. UTI 5. Leukocytosis which is trending down. 6. Jaundice 7. Hyponatremia Plan Patient's CA 199 and CEA both were within normal limit Her triglycerides level was also normal. Given the history of gallstone and mildly dilated bile duct I am more in favor of biliary pancreatitis. Correction of hyponatremia by giving patient free water Liver function needs to be monitored if bilirubin keeps going up and may need ERCP. Once pancreatitis is resolved would prefer to have cholecystectomy to prevent the second attack in the future Based on MRI and CT scan I doubt patient has autoimmune pancreatitis. Consultation Date/Type/Reason Admit Date/Time May 30, 2017 at 22:37 Initial Consult Date 05/31/17 Type of Consultation: ID [id number] HR Interval Summary Constitutional: improved Exam/Review of Systems Vital Signs Vitals Vital Signs Date Time Temp Pulse Resp B/P Pulse Ox O2 Delivery O2 Flow Rate FiO2 06/03/17 13:45 97.6 111 24 141/64 96 06/03/17 13:20 Nasal Cannula 2.0 Intake and Output 06/02/17 06/02/17 06/03/17 15:00 23:00 07:00 Intake Total 1000 ml 1250 ml Output Total 400 ml Balance 600 ml 1250 ml Exam Constitutional: alert, oriented, well developed Psych: nl mood/affect, no complaints Head: atraumatic, normocephalic Eyes: EOMI, PERRL, nl conjunctiva, nl lids, nl sclera ENMT: nl external ears & nose, nl lips & teeth, nl nasal mucosa & septum Neck: non-tender, supple Respiratory: clear to auscultation, normal air movement Cardiovascular: nl pulses, regular rate and rhythm Gastrointestinal: nl liver, spleen, non-tender, soft Musculoskeletal: nl extremities to inspection, nl gait and stance Extremities: normal pulses 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, nl mental status, nl speech, nl strength Skin: nl turgor, No rash or lesions Lymph: nl lymph nodes Results Result Diagram: 06/02/17 1805 06/03/17 0528 Results 24 hrs Laboratory Tests Test 06/02/17 18:05 06/03/17 05:28 White Blood Count 13.9 H Red Blood Count 3.93 L Hemoglobin 10.9 L Hematocrit 34.5 L Mean Corpuscular Volume 87.8 Mean Corpuscular Hemoglobin 27.7 L Mean Corpuscular Hemoglobin Concent 31.6 L Red Cell Distribution Width 13.7 Platelet Count 222 Mean Platelet Volume 11.0 H Neutrophils % 85.8 H Lymphocytes % 4.9 L Monocytes % 8.0 Eosinophils % 0.1 Basophils % 0.4 Nucleated Red Blood Cells % 0.0 Neutrophils # 11.9 H Lymphocytes # 0.7 L Monocytes # 1.1 H Eosinophils # 0.0 Basophils # 0.1 Nucleated Red Blood Cells # 0.0 Sodium Level 152 H Potassium Level 3.0 L Chloride Level 113 H Carbon Dioxide Level 28 Anion Gap 14 Blood Urea Nitrogen 14 Creatinine 0.60 Glucose Level 136 Calcium Level 7.4 L Total Bilirubin 1.8 H Direct Bilirubin 0.40 #H Indirect Bilirubin 1.4 H Aspartate Amino Transf (AST/SGOT) 73 H Alanine Aminotransferase (ALT/SGPT) 27 Alkaline Phosphatase 54 Total Protein 6.6 Albumin 3.7 Globulin 2.90 Albumin/Globulin Ratio 1.27 Lipase 244 Medications Medications Current Medications Ondansetron HCl 4 mg 4 mg Q6H PRN IV NAUSEA AND/OR VOMITING Last administered on 06/02/17 20:36; Admin Dose 4 MG; Start 05/31/17 at 00:30 Ceftriaxone Sodium 50 ml @ 100 mls/hr Q24H IVPB Last administered on 01:16; Admin Dose 100 MLS/HR; Start 05/31/17 at 01:00 Dextrose/Sodium Chloride (D5-NS) 1,000 ml @ 75 mls/hr [id number] IV Last administered on 06/03/17 02:51; Admin Dose 125 MLS/HR; Start 05/31/17 at 00:30 Pantoprazole (Protonix Iv) 40 mg DAILY@06 IV Last administered on 06/03/17 06: 18; Admin Dose 40 MG; Start 05/31/17 at 06:00 Acetaminophen (Tylenol Tab) 650 mg Q6H PRN PO PAIN AND OR ELEVATED TEMP Last administered on 06/03/17 07:05; Admin Dose 650 MG; Start 05/31/17 at 00:30 Dorzolamide/ Timolol (Cosopt) 1 drop BID LEFT EYE Last administered on 10:28; Admin Dose 1 DROP; Start 06/01/17 at 09:00 Hydromorphone HCl (Dilaudid) 0.5 mg Q3H PRN IV PAIN Last administered on 10:29; Admin Dose 0.5 MG; Start 05/31/17 at 23:30 Latanoprost (Xalatan) 1 drop HS BOTH EYES Last administered on 06/02/17 20:46 ; Admin Dose 1 DROP; Start 06/01/17 at 21:00 Clonidine HCl (Catapres-Tts 1 Patch) 1 patch Q7D TRANSDERM Last administered on 06/01/17 14:57; Admin Dose 1 PATCH; Start 06/01/17 at 14:00 Hydralazine HCl (Apresoline) 5 mg Q6 IV Last administered on 06/03/17 12:52; Admin Dose 5 MG; Start 06/02/17 at 18:00 KILEY MATTHEW MD Jun 03, 2017 14:18
--- NOTE | 2017-06-03 18:40 | PN ---
Date/Time of Note Date/Time of Note DATE: 06/03/17 TIME: 18:39 Assessment/Plan VTE Prophylaxis VTE Prophylaxis Intervention: other Lines/Catheters IV Catheter Type (from Nrsg): Peripheral IV Assessment/Plan Chief Complaint/Hosp Course RES FAILURE PUL EDEMA PANCREATITIS PLAN LASIX TELE ECHO Problems: Subjective 24 Hr Interval Summary Subjective hx not possible: other (ABD PAIN AND SOB) Exam/Review of Systems Vital Signs Vitals Vital Signs Date Time Temp Pulse Resp B/P Pulse Ox O2 Delivery O2 Flow Rate FiO2 06/03/17 18:14 108 136/61 96 Nasal Cannula 06/03/17 14:00 2.0 06/03/17 13:45 97.6 24 Intake and Output 06/02/17 06/02/17 06/03/17 15:00 23:00 07:00 Intake Total 1000 ml 1250 ml Output Total 400 ml Balance 600 ml 1250 ml Exam Neck: supple Respiratory: diminished breath sounds Cardiovascular: regular rate and rhythm Gastrointestinal: soft Musculoskeletal: nl extremities to inspection Extremities: normal pulses Results Result Diagram: 06/02/17 1805 06/03/17 0528 Results 24 hrs Laboratory Tests Test 06/03/17 05:28 Sodium Level 152 H Potassium Level 3.0 L Chloride Level 113 H Carbon Dioxide Level 28 Anion Gap 14 Blood Urea Nitrogen 14 Creatinine 0.60 Glucose Level 136 Calcium Level 7.4 L Total Bilirubin 1.8 H Direct Bilirubin 0.40 #H Indirect Bilirubin 1.4 H Aspartate Amino Transf (AST/SGOT) 73 H Alanine Aminotransferase (ALT/SGPT) 27 Alkaline Phosphatase 54 Total Protein 6.6 Albumin 3.7 Globulin 2.90 Albumin/Globulin Ratio 1.27 Lipase 244 Medications Medications Current Medications Ondansetron HCl 4 mg 4 mg Q6H PRN IV NAUSEA AND/OR VOMITING Last administered on 06/02/17 20:36; Admin Dose 4 MG; Start 05/31/17 at 00:30 Ceftriaxone Sodium (Rocephin) 50 ml @ 100 mls/hr Q24H IVPB Last administered on 06/03/17 01:16; Admin Dose 100 MLS/HR; Start 05/31/17 at 01:00 Pantoprazole (Protonix Iv) 40 mg DAILY@06 IV Last administered on 06/03/17 06: 18; Admin Dose 40 MG; Start 05/31/17 at 06:00 Acetaminophen (Tylenol Tab) 650 mg Q6H PRN PO PAIN AND OR ELEVATED TEMP Last administered on 06/03/17 07:05; Admin Dose 650 MG; Start 05/31/17 at 00:30 Dorzolamide/ Timolol (Cosopt) 1 drop BID LEFT EYE Last administered on 10:28; Admin Dose 1 DROP; Start 06/01/17 at 09:00 Hydromorphone HCl (Dilaudid) 0.5 mg Q3H PRN IV PAIN Last administered on 18:19; Admin Dose 0.5 MG; Start 05/31/17 at 23:30 Latanoprost (Xalatan) 1 drop HS BOTH EYES Last administered on 06/02/17 20:46 ; Admin Dose 1 DROP; Start 06/01/17 at 21:00 Clonidine HCl (Catapres-Tts 1 Patch) 1 patch Q7D TRANSDERM Last administered on 06/01/17 14:57; Admin Dose 1 PATCH; Start 06/01/17 at 14:00 Hydralazine HCl (Apresoline) 5 mg Q6 IV Last administered on 06/03/17 18:13; Admin Dose 5 MG; Start 06/02/17 at 18:00 KULDEEP OTTO MD Jun 03, 2017 18:40
[2017-06-03 20:14] LABS: ALBUMIN 3.7 g/dl (3.3-4.9); ALBUMIN/GLOBULIN RATIO 1.23; BILIRUBIN,DIRECT 0.7 mg/dl (0.00-0.20); BILIRUBIN,INDIRECT 1.4 mg/dl (0-1.1); BILIRUBIN,TOTAL 2.1 mg/dl (0.2-1.3); CALCIUM 7.7 mg/dl (8.4-10.2); CREATININE 0.62 mg/dl (0.44-1.00); TOTAL PROTEIN 6.7 g/dl (6.1-8.1)
[2017-06-03 20:20] LABS: POTASSIUM 2.9 mmol/L (3.5-5.1)
[2017-06-03] MEDS: D5-0.2 NACL + KCL 20 MEQ 1,000 ML IV SCH (20:42)
[2017-06-03] MEDS: LATANOPROST 0.005% 2.5 ML OPH BOTH EYES SCH (20:43)
[2017-06-03] MEDS ORDERED: POTASSIUM CHLORIDE 250 ML IVPB ONE (21:30)
[2017-06-03] MEDS ORDERED: ALBUTEROL/IPRATROPIUM (NEB) 3 ML AMP HHN PRN (22:30)
[2017-06-03] MEDS ORDERED: FUROSEMIDE 40 MG INJ IV ONE (22:30)
[2017-06-04] VITALS (13 sets, daily range): BP systolic 102–149; BP diastolic 55–75; PULSE 92–107; RESP 16–18
[2017-06-04] MEDS: hydrALAzine 20 MG INJ IV SCH ×4 (01:09→17:20)
[2017-06-04] MEDS: CEFTRIAXONE 1 GM/50 ML (PMX) 50 ML IVPB SCH (01:09)
[2017-06-04] MEDS: ALBUTEROL/IPRATROPIUM (NEB) 3 ML AMP HHN SCH ×4 (01:42→20:57)
[2017-06-04] MEDS: PANTOPRAZOLE 40 MG INJ IV SCH (06:19)
--- NOTE | 2017-06-04 09:25 | PN ---
Date/Time of Note Date/Time of Note DATE: 06/04/17 TIME: 09:11 Assessment/Plan Lines/Catheters IV Catheter Type (from [facility]): Peripheral IV Sher in Place (from [facility]): Yes Assessment/Plan Chief Complaint/Hosp Course 1. Acute pancreatitis: likely 2/2 cholelithiasis; MRI abdomen: Cholelithiasis with gallbladder distension and no gallbladder wall thickening. Common bile duct dilatation without evidence of choledocholithiasis. Extensive peripancreatic edema surrounding the head and uncinate process extending into the right retroperitoneum. No evidence of organized fluid collection; amylase/ lipase improving; pain improved -judicious IV fluids -pain control -started on clears -abx 2 Cholelithiasis: bili increasing -eventual lap amy when fully optimize 3. Leukocytosis with bandemia: likely 2/2 above; min temp overnight; improving -supportive -as above 3.Hypokalemia: -replete -monitor for cardiac arrhythmias 4. Hypocalcemia: likely 2/2 poor nutrition; -nutrition optimization as patient condition permits -optimize lytes 5. Hypernatremia -judicious fluid management 6. Shortness of breath: fluid overload; CXR: Left ventricular enlargement with increased pulmonary vascularity suspicious for mild CHF with subsegmental atelectasis in lung bases; -diuretics -breathing tx -judicious iv fluids Patient seen and examined in collaboration with Dr. Zohaib Gaytan Problems: Subjective 24 Hr Interval Summary Improved abdominal pain. +flatus. Sher cath. No c/o pain, linder, dizziness, cp, palpitations, sob, cough, n/v/d, sz, rash. tachycardic Exam/Review of Systems Vital Signs Vitals Vital Signs Date Time Temp Pulse Resp B/P Pulse Ox O2 Delivery O2 Flow Rate FiO2 06/04/17 08:12 2.0 06/04/17 08:07 107 06/04/17 07:55 19 98 Nasal Cannula 06/04/17 07:27 98.3 117/59 Intake and Output 06/03/17 06/03/17 06/04/17 15:00 23:00 07:00 Intake Total 1600 ml 1000 ml Output Total 860 ml 3200 ml Balance 740 ml -2200 ml Exam Free Text/Dictation Constitutional: alert, oriented, well developed Psych: nl mood Head: atraumatic, normocephalic Eyes: nl lids, nl sclera ENMT: No mucosa pink and moist (pink and dry) Neck: supple Respiratory: crackles; diminished at bases Cardiovascular: regular rate and rhythm, No murmurs/extra sounds Gastrointestinal: bowel sounds (x 4 quads), distended (min), min rebound or guarding, min tender Genitourinary - Female: No CVA tenderness; sher Musculoskeletal: nl extremities to inspection Extremities: normal pulses, No edema Neurological: nl mental status, nl speech, nl strength Skin: nl turgor, no discoloration Results Result Diagram: 06/02/17 1805 06/03/17 193 DIDI MCCAIN NP Jun 04, 2017 09:21
[2017-06-04] MEDS: DORZOLAMIDE/TIMOLOL 10 ML OPH LEFT EYE SCH ×2 (09:28→20:40)
[2017-06-04] MEDS: HYDROmorphONE 1 MG/ML SYG IV PRN ×3 (09:31→20:49)
[2017-06-04 10:41] LABS: CALCIUM 7.3 mg/dl (8.4-10.2); CREATININE 0.57 mg/dl (0.44-1.00); POTASSIUM 3.8 mmol/L (3.5-5.1)
[2017-06-04 10:43] LABS: ADD SCAN DIFF NO
[2017-06-04 10:46] LABS: HEMATOCRIT 29.2 % (37.0-47.0); HEMOGLOBIN 9.5 g/dl (12.0-16.0); MEAN CORPUSCULAR HEMOGLOBIN 27.6 pg (29.0-33.0); MEAN CORPUSCULAR HGB CONC 32.5 g/dl (32.0-37.0); MEAN CORPUSCULAR VOLUME 84.9 fl (82.0-101.0); MEAN PLATELET VOLUME 10.7 fl (7.4-10.4); PLATELET COUNT 249 10^3/UL (140-415); RED BLOOD COUNT 3.44 10^6/ul (4.20-5.40); RED CELL DISTRIBUTION WIDTH 13.7 % (11.5-14.5); WHITE BLOOD COUNT 10.7 10^3/ul (4.8-10.8)
[2017-06-04 11:05] LABS: AMYLASE 184 U/L (11-123)
[2017-06-04 12:24] LABS: EOSINOPHILS # 0.2 10^3/ul (0.0-0.5); LYMPHOCYTES # 1.1 10^3/ul (0.8-2.9); MONOCYTE # 1.1 10^3/ul (0.3-0.9); NEUTROPHIL # 8.2 10^3/ul (1.6-7.5)
--- NOTE | 2017-06-04 13:34 | CONS ---
Date/Time of Note Date/Time of Note DATE: 06/04/17 TIME: 13:33 Assessment/Plan Assessment/Plan Chief Complaint/Hosp Course No acute changes, patient is lying comfortably in bed, tolerates clear liquids, no fevers Temperature 98.2 pulse 78 respirations 16 blood pressure 125/68 saturation 97 on 2 L WBC 10.7 H&H 9.5 and 29.2 platelets 249 neutrophils 77 BUN 16 creatinine 0.57 Microbiology: Blood and urine culture remain negative Antibiotics: Rocephin Physical examination: Fragile elderly woman who is in no distress. Head atraumatic normocephalic, sclera nonicteric, bugle mucosa dry. Neck is supple, trachea midline. Chest rise symmetrical breath sounds diminished basis. Heart : S1, S2. Abdomen soft, bowel tones present. Extremities without cyanosis Assessment: 1. Systemic inflammatory response syndrome 2. Acute pancreatitis possibly secondary to passage of bile duct stone 3. COPD exacerbation 4. Cholelithiasis Plan: Overall improving, continue present care, complete antibiotics, follow GI recommendations Problems: Consultation Date/Type/Reason Admit Date/Time May 30, 2017 at 22:37 Initial Consult Date 05/31/17 Type of Consultation: ID Exam/Review of Systems Vital Signs Vitals Vital Signs Date Time Temp Pulse Resp B/P Pulse Ox O2 Delivery O2 Flow Rate FiO2 06/04/17 13:13 99 18 97 Nasal Cannula 2.0 06/04/17 11:02 98.2 125/68 Intake and Output 06/03/17 06/03/17 06/04/17 15:00 23:00 07:00 Intake Total 1600 ml 1000 ml Output Total 860 ml 3200 ml Balance 740 ml -2200 ml Results Result Diagram: 06/04/17 1021 06/04/17 1007 Results 24 hrs Laboratory Tests Test 06/03/17 19:33 06/04/17 10:07 06/04/17 10:21 06/04/17 10:25 Sodium Level 151 H 148 H Potassium Level 2.9 *L 3.8 Chloride Level 109 109 Carbon Dioxide Level 29 28 Anion Gap 16 15 Blood Urea Nitrogen 14 16 Creatinine 0.62 0.57 Glucose Level 156 146 Calcium Level 7.7 L 7.3 L Total Bilirubin 2.1 H Direct Bilirubin 0.70 #H Indirect Bilirubin 1.4 H Aspartate Amino Transf (AST/SGOT) 71 H Alanine Aminotransferase (ALT/SGPT) 34 Alkaline Phosphatase 55 Total Protein 6.7 Albumin 3.7 Globulin 3.00 Albumin/Globulin Ratio 1.23 White Blood Count 10.7 # Red Blood Count 3.44 L Hemoglobin 9.5 L Hematocrit 29.2 L Mean Corpuscular Volume 84.9 Mean Corpuscular Hemoglobin 27.6 L Mean Corpuscular Hemoglobin Concent 32.5 Red Cell Distribution Width 13.7 Platelet Count 249 Mean Platelet Volume 10.7 H Neutrophils % 77.0 Band Neutrophils % 1.0 Lymphocytes % 10.0 L Monocytes % 10.0 Eosinophils % 2.0 Basophils % Nucleated Red Blood Cells % Neutrophils # 8.2 H Lymphocytes # 1.1 Monocytes # 1.1 H Eosinophils # 0.2 Basophils # Nucleated Red Blood Cells # Differential Comment MANUAL DIFF Amylase Level 184 H Lipase 180 Medications Medications Current Medications Ondansetron HCl 4 mg 4 mg Q6H PRN IV NAUSEA AND/OR VOMITING Last administered on 06/02/17 20:36; Admin Dose 4 MG; Start 05/31/17 at 00:30 Ceftriaxone Sodium (Rocephin) 50 ml @ 100 mls/hr Q24H IVPB Last administered on 06/04/17 01:09; Admin Dose 100 MLS/HR; Start 05/31/17 at 01:00 Pantoprazole (Protonix Iv) 40 mg DAILY@06 IV Last administered on 06/04/17 06: 19; Admin Dose 40 MG; Start 05/31/17 at 06:00 Acetaminophen (Tylenol Tab) 650 mg Q6H PRN PO PAIN AND OR ELEVATED TEMP Last administered on 06/03/17 07:05; Admin Dose 650 MG; Start 05/31/17 at 00:30 Dorzolamide/ Timolol (Cosopt) 1 drop BID LEFT EYE Last administered on 09:28; Admin Dose 1 DROP; Start 06/01/17 at 09:00 Hydromorphone HCl (Dilaudid) 0.5 mg Q3H PRN IV PAIN Last administered on 13:29; Admin Dose 0.5 MG; Start 05/31/17 at 23:30 Latanoprost (Xalatan) 1 drop HS BOTH EYES Last administered on 06/03/17 20:43 ; Admin Dose 1 DROP; Start 06/01/17 at 21:00 Clonidine HCl (Catapres-Tts 1 Patch) 1 patch Q7D TRANSDERM Last administered on 06/01/17 14:57; Admin Dose 1 PATCH; Start 06/01/17 at 14:00 Hydralazine HCl 5 mg 5 mg Q6 IV Last administered on 06/04/17 11:21; Admin Dose 5 MG; Start 06/02/17 at 18:00 Potassium Chloride/Dextrose/ Sod Cl (D5-1/4ns + KCl 20 Meq) 1,000 ml @ 50 mls/ hr Q20H IV Last administered on 06/03/17 20:42; Admin Dose 50 MLS/HR; Start at 19:30 DEBRA CLARK NP Jun 04, 2017 13:33
[2017-06-04] MEDS: D5-0.2 NACL + KCL 20 MEQ 1,000 ML IV SCH (15:47)
[2017-06-04] MEDS: BISACODYL 10 MG SUPP PR PRN (16:15)
[2017-06-04] MEDS ORDERED: NA PHOSPHATE/BIPHOS 133 ML ENEMA PR ONE (17:00)
--- NOTE | 2017-06-04 18:15 | CONS ---
Date/Time of Note Date/Time of Note DATE: 06/04/17 TIME: 18:13 Assessment/Plan Assessment/Plan Additional Assessment/Plan Additional Assessment/Plan 1. Acute pancreatitis most probably related to the passage of bile duct stone 2. Hypertension 3. Kidneys stone by history 4. UTI 5. Leukocytosis which is trending down. 6. Jaundice, increasing bilirubin is of concern it is possible MRCP missed the bile duct stone 7. Hyponatremia 8. Tachycardia Plan Patient's CA 199 and CEA both were within normal limit Her triglycerides level was also normal. Given the history of gallstone and mildly dilated bile duct I am more in favor of biliary pancreatitis. Correction of hyponatremia by giving patient free water Liver function needs to be monitored if bilirubin keeps going up and may need ERCP. Once pancreatitis is resolved would prefer to have cholecystectomy to prevent the second attack in the future Based on MRI and CT scan I doubt patient has autoimmune pancreatitis If bilirubin keeps going up then patient may need ERCP before lap amy Consultation Date/Type/Reason Admit Date/Time May 30, 2017 at 22:37 Initial Consult Date 05/31/17 Type of Consultation: ID 24 HR Interval Summary Constitutional: improved Exam/Review of Systems Vital Signs Vitals Vital Signs Date Time Temp Pulse Resp B/P Pulse Ox O2 Delivery O2 Flow Rate FiO2 06/04/17 16:07 106 06/04/17 15:40 98.1 16 118/55 96 06/04/17 13:13 Nasal Cannula 2.0 Intake and Output 06/03/17 06/03/17 06/04/17 15:00 23:00 07:00 Intake Total 1600 ml 1000 ml Output Total 860 ml 3200 ml Balance 740 ml -2200 ml Exam Constitutional: alert, oriented, well developed Psych: nl mood/affect, no complaints Head: atraumatic, normocephalic Eyes: EOMI, PERRL, nl conjunctiva, nl lids, nl sclera ENMT: nl external ears & nose, nl lips & teeth, nl nasal mucosa & septum Neck: non-tender, supple Respiratory: clear to auscultation, normal air movement Cardiovascular: nl pulses, regular rate and rhythm Gastrointestinal: nl liver, spleen, non-tender, soft Musculoskeletal: nl extremities to inspection, nl gait and stance Extremities: normal pulses 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, nl mental status, nl speech, nl strength Skin: nl turgor, No rash or lesions Lymph: nl lymph nodes Results Result Diagram: 06/04/17 1021 06/04/17 1007 Results 24 hrs Laboratory Tests Test 06/03/17 19:33 06/04/17 10:07 06/04/17 10:21 06/04/17 10:25 Sodium Level 151 H 148 H Potassium Level 2.9 *L 3.8 Chloride Level 109 109 Carbon Dioxide Level 29 28 Anion Gap 16 15 Blood Urea Nitrogen 14 16 Creatinine 0.62 0.57 Glucose Level 156 146 Calcium Level 7.7 L 7.3 L Total Bilirubin 2.1 H Direct Bilirubin 0.70 #H Indirect Bilirubin 1.4 H Aspartate Amino Transf (AST/SGOT) 71 H Alanine Aminotransferase (ALT/SGPT) 34 Alkaline Phosphatase 55 Total Protein 6.7 Albumin 3.7 Globulin 3.00 Albumin/Globulin Ratio 1.23 White Blood Count 10.7 # Red Blood Count 3.44 L Hemoglobin 9.5 L Hematocrit 29.2 L Mean Corpuscular Volume 84.9 Mean Corpuscular Hemoglobin 27.6 L Mean Corpuscular Hemoglobin Concent 32.5 Red Cell Distribution Width 13.7 Platelet Count 249 Mean Platelet Volume 10.7 H Neutrophils % 77.0 Band Neutrophils % 1.0 Lymphocytes % 10.0 L Monocytes % 10.0 Eosinophils % 2.0 Basophils % Nucleated Red Blood Cells % Neutrophils # 8.2 H Lymphocytes # 1.1 Monocytes # 1.1 H Eosinophils # 0.2 Basophils # Nucleated Red Blood Cells # Differential Comment MANUAL DIFF Amylase Level 184 H Lipase 180 Medications Medications Current Medications Ondansetron HCl 4 mg 4 mg Q6H PRN IV NAUSEA AND/OR VOMITING Last administered on 06/02/17 20:36; Admin Dose 4 MG; Start 05/31/17 at 00:30 Ceftriaxone Sodium (Rocephin) 50 ml @ 100 mls/hr Q24H IVPB Last administered on 06/04/17 01:09; Admin Dose 100 MLS/HR; Start 05/31/17 at 01:00 Pantoprazole (Protonix Iv) 40 mg DAILY@06 IV Last administered on 06/04/17 06: 19; Admin Dose 40 MG; Start 05/31/17 at 06:00 Acetaminophen (Tylenol Tab) 650 mg Q6H PRN PO PAIN AND OR ELEVATED TEMP Last administered on 06/03/17 07:05; Admin Dose 650 MG; Start 05/31/17 at 00:30 Dorzolamide/ Timolol (Cosopt) 1 drop BID LEFT EYE Last administered on 09:28; Admin Dose 1 DROP; Start 06/01/17 at 09:00 Hydromorphone HCl (Dilaudid) 0.5 mg Q3H PRN IV PAIN Last administered on 13:29; Admin Dose 0.5 MG; Start 05/31/17 at 23:30 Latanoprost (Xalatan) 1 drop HS BOTH EYES Last administered on 06/03/17 20:43 ; Admin Dose 1 DROP; Start 06/01/17 at 21:00 Clonidine HCl (Catapres-Tts 1 Patch) 1 patch Q7D TRANSDERM Last administered on 06/01/17 14:57; Admin Dose 1 PATCH; Start 06/01/17 at 14:00 Hydralazine HCl 5 mg 5 mg Q6 IV Last administered on 06/04/17 17:20; Admin Dose 5 MG; Start 06/02/17 at 18:00 Potassium Chloride/Dextrose/ Sod Cl (D5-1/4ns + KCl 20 Meq) 1,000 ml @ 50 mls/ hr Q20H IV Last administered on 06/04/17 15:47; Admin Dose 50 MLS/HR; Start at 19:30 Bisacodyl (Dulcolax Supp) 10 mg DAILY PRN [place] CONSTIPATION Last administered on 06/04/17 16:15; Admin Dose 10 MG; Start 06/04/17 at 16:30 KILEY MATTHEW MD Jun 04, 2017 18:14
--- NOTE | 2017-06-04 19:26 | RADRPT ---
Echocardiogram Report Patient Name: DAVID CASILLAS Gender: Female Date: 1940 Study Date: 04-Jun-2017 Certified Anesthesiologist Assistant: Renata Casillas RDCS Location: [facility] Ref. Physician: KULDEEP OTTO Quality: Good Procedures: Transthoracic echocardiogram with complete 2D, M-Mode, and doppler examination. Indications: Shortness of breath. 2D/M Mode Doppler Measurement Value Normal Ranges Measurement Value Normal Ranges LVIDd 2D 3.4 3.5 - 5.6 cm ARNAUD Vmax 2.8 cm2 LVIDs 2D 1.4 2.1 - 4.1 cm ARNAUD VTI 386.1 cm2 LVPWd 2D 1.1 0.6 - 1.1 cm AV Mean [place]rence 1.5 m/sec IVSd 2D 1.1 0.6 - 1.1 cm AV Mean PG 9.7 mmHg AoR Diam 2D 3.1 2.0 - 3.7 cm AV Peak [place]rence 2.0 m/sec EDV 2D 48.6 cm3 AV VTI 35.4 cm ESV 2D 3.0 cm3 LVOT Mean [place] 1.3 m/sec LA Dimen 2D 3.6 2.3 - 4.0 cm LVOT Mean PG 7.6 mmHg LVOT Diam 2.0 cm LVOT Peak [place] 1.8 m/sec LVOT Peak PG 13.5 mmHg LVOT VTI 32.8 cm MV E Peak [place] 0.8 m/sec MV A Peak [place] 1.1 m/sec MV E/A 0.7 MV Decel Time 165 msec MV Decel [place] 5 MV E/A 0.7 TR Peak [place] 3.1 m/sec TR Peak PG 65.7 mmHg RVSP 68.7 mmHg Findings Left Ventricle: Normal left ventricular systolic function. Normal left ventricular cavity size. Mild concentric left ventricular hypertrophy. Ejection fraction is visually estimated at 60 %. Abnormal Diastolic Function. Right Ventricle: Normal right ventricular systolic function. Left Atrium: The left atrium is normal in size. Right Atrium: The right atrium is normal in size. Mitral Valve: Mild mitral leaflet calcification. Trace mitral regurgitation. Aortic Valve: Normal appearance of the aortic valve. No significant aortic stenosis or insufficiency. Tricuspid Valve: Normal appearance and function of the tricuspid valve with trace physiologic regurgitation. Normal right ventricular systolic pressure. Pulmonic Valve: Normal pulmonic valve appearance. Pericardium: Normal pericardium with no significant pericardial effusion. Aorta: There is mild aortic root calcification. IVC: Normal size and normal respiratory collapse consistent with normal right atrial pressure. Conclusions 1.Normal left ventricular systolic function. Normal left ventricular cavity size. Mild concentric left ventricular hypertrophy. Ejection fraction is visually estimated at 60 %. Abnormal Diastolic Function. 2.Mild mitral leaflet calcification. Trace mitral regurgitation. 3.Normal appearance and function of the tricuspid valve with trace physiologic regurgitation. Normal right ventricular systolic pressure. Electronically Signed By: Berny Dorsey 04-Jun-2017 19:25:48 -0700 Patient Name: DAVID CASILLAS Study Date: 04-Jun-2017 [id number]
[2017-06-04] MEDS: LATANOPROST 0.005% 2.5 ML OPH BOTH EYES SCH (20:38)
--- NOTE | 2017-06-04 21:33 | PN ---
Date/Time of Note Date/Time of Note DATE: 06/04/17 TIME: 21:32 Assessment/Plan VTE Prophylaxis VTE Prophylaxis Intervention: other Lines/Catheters IV Catheter Type (from Nrsg): Peripheral IV Urinary Cath still in place: Yes Reason Cath still needed: other (indicate) Assessment/Plan Chief Complaint/Hosp Course RES FAILURE BETTER PUL EDEMA BETTER PANCREATITIS BETTER SEPSIS PLAN LASIX PRN TELE ECHO LABS PER GI Problems: Subjective 24 Hr Interval Summary Cardiovascular: no complaints Gastrointestinal: no complaints, pain (+), No nausea Exam/Review of Systems Vital Signs Vitals Vital Signs Date Time Temp Pulse Resp B/P Pulse Ox O2 Delivery O2 Flow Rate FiO2 06/04/17 21:00 105 22 97 Nasal Cannula 2.0 06/04/17 20:11 98.4 145/67 Intake and Output 06/03/17 06/03/17 06/04/17 15:00 23:00 07:00 Intake Total 1600 ml 1000 ml Output Total 860 ml 3200 ml Balance 740 ml -2200 ml Exam Respiratory: clear to auscultation Cardiovascular: regular rate and rhythm Gastrointestinal: bowel sounds (+), soft Musculoskeletal: nl extremities to inspection Results Result Diagram: 06/04/17 1021 06/04/17 1007 Results 24 hrs Laboratory Tests Test 06/04/17 10:07 06/04/17 10:21 06/04/17 10:25 Sodium Level 148 H Potassium Level 3.8 Chloride Level 109 Carbon Dioxide Level 28 Anion Gap 15 Blood Urea Nitrogen 16 Creatinine 0.57 Glucose Level 146 Calcium Level 7.3 L White Blood Count 10.7 # Red Blood Count 3.44 L Hemoglobin 9.5 L Hematocrit 29.2 L Mean Corpuscular Volume 84.9 Mean Corpuscular Hemoglobin 27.6 L Mean Corpuscular Hemoglobin Concent 32.5 Red Cell Distribution Width 13.7 Platelet Count 249 Mean Platelet Volume 10.7 H Neutrophils % 77.0 Band Neutrophils % 1.0 Lymphocytes % 10.0 L Monocytes % 10.0 Eosinophils % 2.0 Basophils % Nucleated Red Blood Cells % Neutrophils # 8.2 H Lymphocytes # 1.1 Monocytes # 1.1 H Eosinophils # 0.2 Basophils # Nucleated Red Blood Cells # Differential Comment MANUAL DIFF Amylase Level 184 H Lipase 180 Medications Medications Current Medications Ondansetron HCl 4 mg 4 mg Q6H PRN IV NAUSEA AND/OR VOMITING Last administered on 06/02/17 20:36; Admin Dose 4 MG; Start 05/31/17 at 00:30 Ceftriaxone Sodium (Rocephin) 50 ml @ 100 mls/hr Q24H IVPB Last administered on 06/04/17 01:09; Admin Dose 100 MLS/HR; Start 05/31/17 at 01:00 Pantoprazole (Protonix Iv) 40 mg DAILY@06 IV Last administered on 06/04/17 06: 19; Admin Dose 40 MG; Start 05/31/17 at 06:00 Acetaminophen (Tylenol Tab) 650 mg Q6H PRN PO PAIN AND OR ELEVATED TEMP Last administered on 06/03/17 07:05; Admin Dose 650 MG; Start 05/31/17 at 00:30 Dorzolamide/ Timolol (Cosopt) 1 drop BID LEFT EYE Last administered on 20:40; Admin Dose 1 DROP; Start 06/01/17 at 09:00 Hydromorphone HCl (Dilaudid) 0.5 mg Q3H PRN IV PAIN Last administered on 20:49; Admin Dose 0.5 MG; Start 05/31/17 at 23:30 Latanoprost (Xalatan) 1 drop HS BOTH EYES Last administered on 06/04/17 20:38 ; Admin Dose 1 DROP; Start 06/01/17 at 21:00 Clonidine HCl (Catapres-Tts 1 Patch) 1 patch Q7D TRANSDERM Last administered on 06/01/17 14:57; Admin Dose 1 PATCH; Start 06/01/17 at 14:00 Hydralazine HCl 5 mg 5 mg Q6 IV Last administered on 06/04/17 17:20; Admin Dose 5 MG; Start 06/02/17 at 18:00 Potassium Chloride/Dextrose/ Sod Cl (D5-1/4ns + KCl 20 Meq) 1,000 ml @ 50 mls/ hr Q20H IV Last administered on 06/04/17 15:47; Admin Dose 50 MLS/HR; Start at 19:30 Bisacodyl (Dulcolax Supp) 10 mg DAILY PRN [place] CONSTIPATION Last administered on 06/04/17 16:15; Admin Dose 10 MG; Start 06/04/17 at 16:30 KULDEEP OTTO MD Jun 04, 2017 21:33
[2017-06-05] VITALS (11 sets, daily range): BP systolic 104–150; BP diastolic 56–79; PULSE 99–113; RESP 16–18
[2017-06-05] MEDS: hydrALAzine 20 MG INJ IV SCH ×4 (00:08→18:00)
[2017-06-05] MEDS: HYDROmorphONE 1 MG/ML SYG IV PRN ×2 (00:15→10:22)
[2017-06-05] MEDS: CEFTRIAXONE 1 GM/50 ML (PMX) 50 ML IVPB SCH (00:17)
[2017-06-05] MEDS: ALBUTEROL/IPRATROPIUM (NEB) 3 ML AMP HHN SCH ×4 (01:55→19:23)
[2017-06-05] MEDS: PANTOPRAZOLE 40 MG INJ IV SCH (05:33)
[2017-06-05 07:22] LABS: ADD SCAN DIFF NO
[2017-06-05 07:34] LABS: BASOPHILS % 0.4 % (0.0-2.0); EOSINOPHILS # 0.3 10^3/ul (0.0-0.5); EOSINOPHILS % 2.3 % (0.0-7.0); HEMATOCRIT 29.9 % (37.0-47.0); HEMOGLOBIN 9.3 g/dl (12.0-16.0); LYMPHOCYTES # 1.2 10^3/ul (0.8-2.9); LYMPHOCYTES % 10.7 % (15.0-51.0); MEAN CORPUSCULAR HEMOGLOBIN 26.7 pg (29.0-33.0); MEAN CORPUSCULAR HGB CONC 31.1 g/dl (32.0-37.0); MEAN CORPUSCULAR VOLUME 85.9 fl (82.0-101.0); MEAN PLATELET VOLUME 10.5 fl (7.4-10.4); MONOCYTE # 1.3 10^3/ul (0.3-0.9); MONOCYTES % 11.7 % (0.0-11.0); NEUTROPHILS % 71.2 % (39.0-77.0); NUCLEATED RED BLOOD CELLS% 0.2 /100WBC (0.0-0.0); PLATELET COUNT 269 10^3/UL (140-415); RED BLOOD COUNT 3.48 10^6/ul (4.20-5.40); WHITE BLOOD COUNT 11.3 10^3/ul (4.8-10.8)
[2017-06-05] MEDS: DORZOLAMIDE/TIMOLOL 10 ML OPH LEFT EYE SCH ×2 (09:37→20:38)
[2017-06-05] MEDS: BISACODYL 10 MG SUPP PR PRN (09:40)
[2017-06-05] MEDS: D5-0.2 NACL + KCL 20 MEQ 1,000 ML IV SCH (11:56)
[2017-06-05 15:06] LABS: ALBUMIN 3.4 g/dl (3.3-4.9); ALBUMIN/GLOBULIN RATIO 0.89; BILIRUBIN,INDIRECT 1.2 mg/dl (0-1.1); BILIRUBIN,TOTAL 2.2 mg/dl (0.2-1.3); CREATININE 0.59 mg/dl (0.44-1.00); POTASSIUM 3.7 mmol/L (3.5-5.1); TOTAL PROTEIN 7.2 g/dl (6.1-8.1)
[2017-06-05 17:51] LABS: AMYLASE 199 U/L (11-123)
--- NOTE | 2017-06-05 18:03 | CONS ---
Date/Time of Note Date/Time of Note DATE: 06/05/17 TIME: 18:02 Assessment/Plan Assessment/Plan Chief Complaint/Hosp Course No acute changes, patient is lying comfortably in bed, tolerates clear liquids, no fevers Microbiology: Blood and urine culture remain negative Antibiotics: Rocephin Physical examination: Fragile elderly woman who is in no distress. Head atraumatic normocephalic, sclera nonicteric, bugle mucosa dry. Neck is supple, trachea midline. Chest rise symmetrical breath sounds diminished basis. Heart : S1, S2. Abdomen soft, bowel tones present. Extremities without cyanosis Assessment: 1. Systemic inflammatory response syndrome 2. Acute pancreatitis possibly secondary to passage of bile duct stone 3. COPD exacerbation 4. Cholelithiasis Plan: Overall improving, continue present care, dc antibiotics, follow GI recommendations NANI RN Problems: Consultation Date/Type/Reason Admit Date/Time May 30, 2017 at 22:37 Initial Consult Date 05/31/17 Type of Consultation: ID Exam/Review of Systems Vital Signs Vitals Vital Signs Date Time Temp Pulse Resp B/P Pulse Ox O2 Delivery O2 Flow Rate FiO2 06/05/17 16:03 110 06/05/17 15:05 97.8 16 119/59 98 06/05/17 14:14 21 06/05/17 08:00 Nasal Cannula 2.0 Intake and Output 06/04/17 06/04/17 06/05/17 15:00 23:00 07:00 Intake Total 2080 ml 550 ml Output Total 1000 ml 600 ml Balance 1080 ml -50 ml Results Result Diagram: 06/05/17 0607 06/05/17 1405 Results 24 hrs Laboratory Tests Test 06/05/17 06:07 06/05/17 14:05 White Blood Count 11.3 H Red Blood Count 3.48 L Hemoglobin 9.3 L Hematocrit 29.9 L Mean Corpuscular Volume 85.9 Mean Corpuscular Hemoglobin 26.7 L Mean Corpuscular Hemoglobin Concent 31.1 L Red Cell Distribution Width 14.0 Platelet Count 269 Mean Platelet Volume 10.5 H Neutrophils % 71.2 Lymphocytes % 10.7 L Monocytes % 11.7 H Eosinophils % 2.3 Basophils % 0.4 Nucleated Red Blood Cells % 0.2 H Neutrophils # 8.0 H Lymphocytes # 1.2 Monocytes # 1.3 H Eosinophils # 0.3 Basophils # 0.0 Nucleated Red Blood Cells # 0.0 Sodium Level 141 Potassium Level 3.7 Chloride Level 99 # Carbon Dioxide Level 27 Anion Gap 19 H Blood Urea Nitrogen 15 Creatinine 0.59 Glucose Level 121 Calcium Level 8.0 L Total Bilirubin 2.2 H Direct Bilirubin 1.00 H Indirect Bilirubin 1.2 H Aspartate Amino Transf (AST/SGOT) 98 H Alanine Aminotransferase (ALT/SGPT) 53 Alkaline Phosphatase 87 # Total Protein 7.2 Albumin 3.4 Globulin 3.80 H Albumin/Globulin Ratio 0.89 Medications Medications Current Medications Ondansetron HCl 4 mg 4 mg Q6H PRN IV NAUSEA AND/OR VOMITING Last administered on 06/02/17 20:36; Admin Dose 4 MG; Start 05/31/17 at 00:30 Ceftriaxone Sodium (Rocephin) 50 ml @ 100 mls/hr Q24H IVPB Last administered on 06/05/17 00:17; Admin Dose 100 MLS/HR; Start 05/31/17 at 01:00 Pantoprazole (Protonix Iv) 40 mg DAILY@06 IV Last administered on 06/05/17 05: 33; Admin Dose 40 MG; Start 05/31/17 at 06:00 Acetaminophen (Tylenol Tab) 650 mg Q6H PRN PO PAIN AND OR ELEVATED TEMP Last administered on 06/03/17 07:05; Admin Dose 650 MG; Start 05/31/17 at 00:30 Dorzolamide/ Timolol (Cosopt) 1 drop BID LEFT EYE Last administered on 09:37; Admin Dose 1 DROP; Start 06/01/17 at 09:00 Hydromorphone HCl (Dilaudid) 0.5 mg Q3H PRN IV PAIN Last administered on 10:22; Admin Dose 0.5 MG; Start 05/31/17 at 23:30 Latanoprost (Xalatan) 1 drop HS BOTH EYES Last administered on 06/04/17 20:38 ; Admin Dose 1 DROP; Start 06/01/17 at 21:00 Clonidine HCl (Catapres-Tts 1 Patch) 1 patch Q7D TRANSDERM Last administered on 06/01/17 14:57; Admin Dose 1 PATCH; Start 06/01/17 at 14:00 Hydralazine HCl 5 mg 5 mg Q6 IV Last administered on 06/05/17 12:45; Admin Dose 5 MG; Start 06/02/17 at 18:00 Potassium Chloride/Dextrose/ Sod Cl (D5-1/4ns + KCl 20 Meq) 1,000 ml @ 50 mls/ hr Q20H IV Last administered on 06/05/17 11:56; Admin Dose 50 MLS/HR; Start at 19:30 Bisacodyl (Dulcolax Supp) 10 mg DAILY PRN [place] CONSTIPATION Last administered on 06/05/17 09:40; Admin Dose 10 MG; Start 06/04/17 at 16:30 DEBRA CLARK NP Jun 05, 2017 18:02
[2017-06-05] MEDS: LATANOPROST 0.005% 2.5 ML OPH BOTH EYES SCH (20:38)
--- NOTE | 2017-06-05 23:16 | PN ---
Date/Time of Note Date/Time of Note DATE: 06/05/17 TIME: 23:15 Assessment/Plan VTE Prophylaxis VTE Prophylaxis Intervention: other Lines/Catheters IV Catheter Type (from Nrs): Peripheral IV Urinary Cath still in place: Yes Reason Cath still needed: other (indicate) Assessment/Plan Chief Complaint/Hosp Course RES FAILURE BETTER PUL EDEMA BETTER PANCREATITIS BETTER SEPSIS PLAN LASIX PRN TELE LABS PER GI Problems: Subjective 24 Hr Interval Summary Cardiovascular: no complaints Gastrointestinal: no complaints Exam/Review of Systems Vital Signs Vitals Vital Signs Date Time Temp Pulse Resp B/P Pulse Ox O2 Delivery O2 Flow Rate FiO2 06/05/17 20:16 99 06/05/17 20:10 Nasal Cannula 3.0 06/05/17 19:56 99.0 18 115/56 94 06/05/17 14:14 21 Intake and Output 06/04/17 06/04/17 06/05/17 15:00 23:00 07:00 Intake Total 2080 ml 550 ml Output Total 1000 ml 600 ml Balance 1080 ml -50 ml Exam Neck: supple Respiratory: clear to auscultation Cardiovascular: regular rate and rhythm Gastrointestinal: bowel sounds (+), soft Results Result Diagram: 06/05/17 0607 06/05/17 1405 Results 24 hrs Laboratory Tests Test 06/05/17 06:07 06/05/17 14:05 White Blood Count 11.3 H Red Blood Count 3.48 L Hemoglobin 9.3 L Hematocrit 29.9 L Mean Corpuscular Volume 85.9 Mean Corpuscular Hemoglobin 26.7 L Mean Corpuscular Hemoglobin Concent 31.1 L Red Cell Distribution Width 14.0 Platelet Count 269 Mean Platelet Volume 10.5 H Neutrophils % 71.2 Lymphocytes % 10.7 L Monocytes % 11.7 H Eosinophils % 2.3 Basophils % 0.4 Nucleated Red Blood Cells % 0.2 H Neutrophils # 8.0 H Lymphocytes # 1.2 Monocytes # 1.3 H Eosinophils # 0.3 Basophils # 0.0 Nucleated Red Blood Cells # 0.0 Sodium Level 141 Potassium Level 3.7 Chloride Level 99 # Carbon Dioxide Level 27 Anion Gap 19 H Blood Urea Nitrogen 15 Creatinine 0.59 Glucose Level 121 Calcium Level 8.0 L Total Bilirubin 2.2 H Direct Bilirubin 1.00 H Indirect Bilirubin 1.2 H Aspartate Amino Transf (AST/SGOT) 98 H Alanine Aminotransferase (ALT/SGPT) 53 Alkaline Phosphatase 87 # Total Protein 7.2 Albumin 3.4 Globulin 3.80 H Albumin/Globulin Ratio 0.89 Amylase Level 199 H Lipase 282 Medications Medications Current Medications Ondansetron HCl (Zofran Inj) 4 mg Q6H PRN IV NAUSEA AND/OR VOMITING Last administered on 06/02/17 20:36; Admin Dose 4 MG; Start 05/31/17 at 00:30 Pantoprazole (Protonix Iv) 40 mg DAILY@06 IV Last administered on 06/05/17 05: 33; Admin Dose 40 MG; Start 05/31/17 at 06:00 Acetaminophen (Tylenol Tab) 650 mg Q6H PRN PO PAIN AND OR ELEVATED TEMP Last administered on 06/03/17 07:05; Admin Dose 650 MG; Start 05/31/17 at 00:30 Dorzolamide/ Timolol (Cosopt) 1 drop BID LEFT EYE Last administered on 20:38; Admin Dose 1 DROP; Start 06/01/17 at 09:00 Hydromorphone HCl (Dilaudid) 0.5 mg Q3H PRN IV PAIN Last administered on 10:22; Admin Dose 0.5 MG; Start 05/31/17 at 23:30 Latanoprost (Xalatan) 1 drop HS BOTH EYES Last administered on 06/05/17 20:38 ; Admin Dose 1 DROP; Start 06/01/17 at 21:00 Clonidine HCl (Catapres-Tts 1 Patch) 1 patch Q7D TRANSDERM Last administered on 06/01/17 14:57; Admin Dose 1 PATCH; Start 06/01/17 at 14:00 Hydralazine HCl 5 mg 5 mg Q6 IV Last administered on 06/05/17 12:45; Admin Dose 5 MG; Start 06/02/17 at 18:00 Potassium Chloride/Dextrose/ Sod Cl (D5-1/4ns + KCl 20 Meq) 1,000 ml @ 50 mls/ hr Q20H IV Last administered on 06/05/17 11:56; Admin Dose 50 MLS/HR; Start at 19:30 Bisacodyl (Dulcolax Supp) 10 mg DAILY PRN [place] CONSTIPATION Last administered on 06/05/17 09:40; Admin Dose 10 MG; Start 06/04/17 at 16:30 Guaifenesin/ Codeine Phosphate (Robitussin Ac Liquid Cup) 5 ml Q6H PRN PO COUGH ; Start 06/05/17 at 21:30 KULDEEP OTTO MD Jun 05, 2017 23:16
--- NOTE | 2017-06-05 23:50 | PN ---
Date/Time of Note Date/Time of Note DATE: 06/05/17 TIME: 23:49 Assessment/Plan Lines/Catheters IV Catheter Type (from [facility]): Peripheral IV Sher in Place (from [facility]): Yes Assessment/Plan Chief Complaint/Hosp Course 1. Acute pancreatitis: likely 2/2 cholelithiasis; MRI abdomen: Cholelithiasis with gallbladder distension and no gallbladder wall thickening. Common bile duct dilatation without evidence of choledocholithiasis. Extensive peripancreatic edema surrounding the head and uncinate process extending into the right retroperitoneum. No evidence of organized fluid collection; amylase/ lipase improving; min pain -judicious IV fluids -pain control -started on clears -abx 2 Cholelithiasis: bili increasing -eventual lap amy when fully optimize 3. Leukocytosis with bandemia: likely 2/2 above; min temp overnight; -supportive -as above 3.Hypokalemia: -replete -monitor for cardiac arrhythmias 4. Hypocalcemia: likely 2/2 poor nutrition; -nutrition optimization as patient condition permits -optimize lytes 5. Hypernatremia -judicious fluid management 6. Shortness of breath: fluid overload; CXR: Left ventricular enlargement with increased pulmonary vascularity suspicious for mild CHF with subsegmental atelectasis in lung bases; -diuretics -breathing tx -judicious iv fluids Patient seen and examined in collaboration with Dr. Zohaib Gaytan Problems: Subjective 24 Hr Interval Summary Min sob. right upper quad min pain. Tolerating clears. Up with PT. + flatus. No f/c, n/v/d, linder, sz, dizziness, fainting. Exam/Review of Systems Vital Signs Vitals Vital Signs Date Time Temp Pulse Resp B/P Pulse Ox O2 Delivery O2 Flow Rate FiO2 06/06/17 11:27 98.3 85 18 120/58 94 06/06/17 08:33 21 06/05/17 20:10 Nasal Cannula 3.0 Intake and Output 06/05/17 06/05/17 06/06/17 15:00 23:00 07:00 Intake Total 850 ml 1650 ml Output Total 1100 ml 400 ml Balance -250 ml 1250 ml Exam Free Text/Dictation Constitutional: alert, oriented, well developed Psych: nl mood Head: atraumatic, normocephalic Eyes: nl lids, nl sclera ENMT: No mucosa pink and moist (pink and dry) Neck: supple, JVD Respiratory: crackles; diminished at bases Cardiovascular: regular rate and rhythm, No murmurs/extra sounds Gastrointestinal: bowel sounds (x 4 quads), distended (min), min rebound or guarding, min tender Genitourinary - Female: No CVA tenderness; sher Musculoskeletal: nl extremities to inspection Extremities: normal pulses, No edema Neurological: nl mental status, nl speech, nl strength Skin: nl turgor, no discoloration Results Result Diagram: 06/06/17 0721 06/06/17 0721 DIDI MCCAIN NP Jun 05, 2017 23:50
[2017-06-06] VITALS (12 sets, daily range): BP systolic 120–150; BP diastolic 58–70; PULSE 85–95; RESP 18
[2017-06-06 00:07] LABS: ALBUMIN 2.7 g/dl (3.3-4.9); ALBUMIN/GLOBULIN RATIO 0.84; BILIRUBIN,DIRECT 0.4 mg/dl (0.00-0.20); BILIRUBIN,TOTAL 1.4 mg/dl (0.2-1.3); CALCIUM 7.6 mg/dl (8.4-10.2); CREATININE 0.62 mg/dl (0.44-1.00); TOTAL PROTEIN 5.9 g/dl (6.1-8.1)
[2017-06-06] MEDS: hydrALAzine 20 MG INJ IV SCH ×4 (00:43→17:46)
[2017-06-06] MEDS: GUAIFENESIN/CODEINE 5ML CUP PO PRN (01:33)
[2017-06-06] MEDS: D5-0.2 NACL + KCL 20 MEQ 1,000 ML IV SCH (01:34)
[2017-06-06] MEDS: ALBUTEROL/IPRATROPIUM (NEB) 3 ML AMP HHN SCH ×4 (01:36→19:26)
[2017-06-06] MEDS: PANTOPRAZOLE 40 MG INJ IV SCH (05:59)
[2017-06-06] MEDS ORDERED: POTASSIUM CHLORIDE 250 ML IVPB ONE (07:00)
[2017-06-06 07:40] LABS: ADD SCAN DIFF NO
[2017-06-06 07:49] LABS: ABNORMAL IP MESSAGE 1; BASOPHIL # 0.1 10^3/ul (0.0-0.1); BASOPHILS % 0.5 % (0.0-2.0); EOSINOPHILS # 0.3 10^3/ul (0.0-0.5); EOSINOPHILS % 2.4 % (0.0-7.0); HEMATOCRIT 29.3 % (37.0-47.0); HEMOGLOBIN 9.5 g/dl (12.0-16.0); LYMPHOCYTES # 1.6 10^3/ul (0.8-2.9); LYMPHOCYTES % 12.1 % (15.0-51.0); MEAN CORPUSCULAR HEMOGLOBIN 27.5 pg (29.0-33.0); MEAN CORPUSCULAR HGB CONC 32.4 g/dl (32.0-37.0); MEAN CORPUSCULAR VOLUME 84.7 fl (82.0-101.0); MEAN PLATELET VOLUME 9.9 fl (7.4-10.4); MONOCYTE # 1.5 10^3/ul (0.3-0.9); MONOCYTES % 11.7 % (0.0-11.0); NEUTROPHIL # 8.9 10^3/ul (1.6-7.5); NEUTROPHILS % 68.1 % (39.0-77.0); NUCLEATED RED BLOOD CELLS% 0.2 /100WBC (0.0-0.0); PLATELET COUNT 289 10^3/UL (140-415); RED BLOOD COUNT 3.46 10^6/ul (4.20-5.40); RED CELL DISTRIBUTION WIDTH 13.8 % (11.5-14.5); WHITE BLOOD COUNT 13.1 10^3/ul (4.8-10.8)
[2017-06-06 08:18] LABS: ALBUMIN 2.8 g/dl (3.3-4.9); ALBUMIN/GLOBULIN RATIO 0.84; BILIRUBIN,DIRECT 0.4 mg/dl (0.00-0.20); BILIRUBIN,TOTAL 1.4 mg/dl (0.2-1.3); CALCIUM 7.6 mg/dl (8.4-10.2); CREATININE 0.68 mg/dl (0.44-1.00); POTASSIUM 3.5 mmol/L (3.5-5.1); TOTAL PROTEIN 6.1 g/dl (6.1-8.1)
[2017-06-06] MEDS: DORZOLAMIDE/TIMOLOL 10 ML OPH LEFT EYE SCH ×2 (09:00→21:06)
--- NOTE | 2017-06-06 12:05 | PN ---
Date/Time of Note Date/Time of Note DATE: 06/06/17 TIME: 11:58 Assessment/Plan Lines/Catheters IV Catheter Type (from [facility]): Peripheral IV Sher in Place (from [facility]): Yes Assessment/Plan Chief Complaint/Hosp Course 1. Acute pancreatitis: likely 2/2 cholelithiasis; MRI abdomen: Cholelithiasis with gallbladder distension and no gallbladder wall thickening. Common bile duct dilatation without evidence of choledocholithiasis. Extensive peripancreatic edema surrounding the head and uncinate process extending into the right retroperitoneum. No evidence of organized fluid collection; amylase/ lipase improving; min RUQ pain -judicious IV fluids -pain control -started on clears -abx 2 Cholelithiasis: bili increasing -eventual lap amy when fully optimize 3. Leukocytosis with bandemia: likely 2/2 above; afebrile, increasing -supportive -as above 3.Hypokalemia: -replete -monitor for cardiac arrhythmias 4. Hypocalcemia: likely 2/2 poor nutrition; -nutrition optimization as patient condition permits -optimize lytes 5. Hypernatremia -judicious fluid management 6. Shortness of breath: fluid overload; CXR: Left ventricular enlargement with increased pulmonary vascularity suspicious for mild CHF with subsegmental atelectasis in lung bases; -diuretics -breathing tx -judicious iv fluids 7. Hyperbilirubinemia: 2/2 above -supportive -eventual lap amy Patient seen and examined in collaboration with Dr. Zohaib Gaytan Problems: Subjective 24 Hr Interval Summary Sob with exertion. c/o intermittent RUQ abdominal pain with cough. + flatus. Tolerating clear liquids. No f/c, n/v/d, sob, cough, dizziness, linder, fainting. Exam/Review of Systems Vital Signs Vitals Vital Signs Date Time Temp Pulse Resp B/P Pulse Ox O2 Delivery O2 Flow Rate FiO2 06/06/17 11:27 98.3 85 18 120/58 94 06/06/17 08:33 21 06/05/17 20:10 Nasal Cannula 3.0 Intake and Output 06/05/17 06/05/17 06/06/17 15:00 23:00 07:00 Intake Total 850 ml 1650 ml Output Total 1100 ml 400 ml Balance -250 ml 1250 ml Exam Free Text/Dictation Constitutional: alert, oriented, well developed, diaphoretic Psych: nl mood Head: atraumatic, normocephalic Eyes: nl lids, nl sclera ENMT: No mucosa pink and moist (pink and dry) Neck: supple, jvd Respiratory: crackles; diminished at bases Cardiovascular: regular rate and rhythm, No murmurs/extra sounds Gastrointestinal: bowel sounds (x 4 quads), distended (min), min rebound or guarding, min tender Genitourinary - Female: No CVA tenderness; sher with kelsey urine Musculoskeletal: nl extremities to inspection Extremities: normal pulses, No edema Neurological: nl mental status, nl speech, nl strength Skin: nl turgor, no discoloration Results Result Diagram: 06/06/17 0721 06/06/17 0721 DIDI MCCAIN NP Jun 06, 2017 12:05
--- NOTE | 2017-06-06 13:47 | CONS ---
Date/Time of Note Date/Time of Note DATE: 06/06/17 TIME: 13:46 Assessment/Plan Assessment/Plan Chief Complaint/Hosp Course No acute changes, patient is lying comfortably in bed, tolerates clear liquids, no fevers Microbiology: Blood and urine culture remain negative Physical examination: Fragile elderly woman who is in no distress. Head atraumatic normocephalic, sclera nonicteric, bugle mucosa dry. Neck is supple, trachea midline. Chest rise symmetrical breath sounds diminished basis. Heart : S1, S2. Abdomen soft, bowel tones present. Extremities without cyanosis Assessment: 1. Systemic inflammatory response syndrome 2. Acute pancreatitis possibly secondary to passage of bile duct stone 3. COPD exacerbation 4. Cholelithiasis Plan: Stable, off antibiotics, will follow GI recommendations NANI IGLESIAS Problems: Consultation Date/Type/Reason Admit Date/Time May 30, 2017 at 22:37 Initial Consult Date 05/31/17 Type of Consultation: ID Exam/Review of Systems Vital Signs Vitals Vital Signs Date Time Temp Pulse Resp B/P Pulse Ox O2 Delivery O2 Flow Rate FiO2 06/06/17 12:15 85 06/06/17 11:27 98.3 18 120/58 94 06/06/17 08:33 21 06/05/17 20:10 Nasal Cannula 3.0 Intake and Output 06/05/17 06/05/17 06/06/17 15:00 23:00 07:00 Intake Total 850 ml 1650 ml Output Total 1100 ml 400 ml Balance -250 ml 1250 ml Results Result Diagram: 06/06/17 0721 06/06/17 0721 Results 24 hrs Laboratory Tests Test 06/05/17 14:05 06/05/17 21:57 06/06/17 07:21 Sodium Level 141 140 142 Potassium Level 3.7 3.0 L 3.5 Chloride Level 99 # 99 102 Carbon Dioxide Level 27 28 29 Anion Gap 19 H 16 15 Blood Urea Nitrogen 15 14 13 Creatinine 0.59 0.62 0.68 Glucose Level 121 123 126 Calcium Level 8.0 L 7.6 L 7.6 L Total Bilirubin 2.2 H 1.4 H 1.4 H Direct Bilirubin 1.00 H 0.40 #H 0.40 H Indirect Bilirubin 1.2 H 1.0 1.0 Aspartate Amino Transf (AST/SGOT) 98 H 76 H 70 H Alanine Aminotransferase (ALT/SGPT) 53 51 54 Alkaline Phosphatase 87 # 63 70 Total Protein 7.2 5.9 #L 6.1 Albumin 3.4 2.7 L 2.8 L Globulin 3.80 H 3.20 3.30 H Albumin/Globulin Ratio 0.89 0.84 0.84 Amylase Level 199 H 173 H Lipase 282 216 White Blood Count 13.1 H Red Blood Count 3.46 L Hemoglobin 9.5 L Hematocrit 29.3 L Mean Corpuscular Volume 84.7 Mean Corpuscular Hemoglobin 27.5 L Mean Corpuscular Hemoglobin Concent 32.4 Red Cell Distribution Width 13.8 Platelet Count 289 Mean Platelet Volume 9.9 Neutrophils % 68.1 Lymphocytes % 12.1 L Monocytes % 11.7 H Eosinophils % 2.4 Basophils % 0.5 Nucleated Red Blood Cells % 0.2 H Neutrophils # 8.9 H Lymphocytes # 1.6 Monocytes # 1.5 H Eosinophils # 0.3 Basophils # 0.1 Nucleated Red Blood Cells # 0.0 Medications Medications Current Medications Ondansetron HCl (Zofran Inj) 4 mg Q6H PRN IV NAUSEA AND/OR VOMITING Last administered on 06/02/17 20:36; Admin Dose 4 MG; Start 05/31/17 at 00:30 Pantoprazole (Protonix Iv) 40 mg DAILY@06 IV Last administered on 06/06/17 05: 59; Admin Dose 40 MG; Start 05/31/17 at 06:00 Acetaminophen (Tylenol Tab) 650 mg Q6H PRN PO PAIN AND OR ELEVATED TEMP Last administered on 06/03/17 07:05; Admin Dose 650 MG; Start 05/31/17 at 00:30 Dorzolamide/ Timolol (Cosopt) 1 drop BID LEFT EYE Last administered on 20:38; Admin Dose 1 DROP; Start 06/01/17 at 09:00 Hydromorphone HCl (Dilaudid) 0.5 mg Q3H PRN IV PAIN Last administered on 10:22; Admin Dose 0.5 MG; Start 05/31/17 at 23:30 Latanoprost (Xalatan) 1 drop HS BOTH EYES Last administered on 06/05/17 20:38 ; Admin Dose 1 DROP; Start 06/01/17 at 21:00 Clonidine HCl (Catapres-Tts 1 Patch) 1 patch Q7D TRANSDERM Last administered on 06/01/17 14:57; Admin Dose 1 PATCH; Start 06/01/17 at 14:00 Hydralazine HCl 5 mg 5 mg Q6 IV Last administered on 06/06/17 05:58; Admin Dose 5 MG; Start 06/02/17 at 18:00 Potassium Chloride/Dextrose/ Sod Cl (D5-1/4ns + KCl 20 Meq) 1,000 ml @ 50 mls/ hr Q20H IV Last administered on 06/06/17 01:34; Admin Dose 50 MLS/HR; Start at 19:30 Bisacodyl (Dulcolax Supp) 10 mg DAILY PRN [place] CONSTIPATION Last administered on 06/05/17 09:40; Admin Dose 10 MG; Start 06/04/17 at 16:30 Guaifenesin/ Codeine Phosphate (Robitussin Ac Liquid Cup) 5 ml Q6H PRN PO COUGH Last administered on 06/06/17 01:33; Admin Dose 5 ML; Start 06/05/17 at 21:30 DEBRA CLARK NP Jun 06, 2017 13:46
--- NOTE | 2017-06-06 14:53 | RADRPT ---
PROCEDURE: XR Chest. CLINICAL INDICATION: Cough TECHNIQUE: A single AP view of the chest was obtained. COMPARISON: Chest x-ray dated 06/03/2017 FINDINGS: Lung volumes are low with compressive changes, vascular crowding and basilar atelectasis. There is m ild elevation of the right diaphragm. No focal airspace opacity, pleural effusion or pneumothorax i s seen. The cardiomediastinal silhouette is mildly enlarged. Calcifications are seen within the ao rtic arch. The osseous structures demonstrate senescent changes. IMPRESSION: 1. Interval improvement in prominence of the interstitial markings when compared to the prior exami nation suggesting resolving interstitial edema. 2. Low lung volumes with compressive changes and basilar atelectasis. 3. Mild cardiomegaly and aortic atherosclerosis. RPTAT: HH .Richelle Lal MD, Date Time Electronically viewed and signed by .Richelle Lal MD, on 06/06/2017 14:52 .G/
[2017-06-06] MEDS ORDERED: LIDOCAINE 1% (MPF) 5 ML VIAL SC ONE (16:00)
[2017-06-06] MEDS ORDERED: POTASSIUM CHLORIDE 20 MEQ POWDER FOR ORAL SOLN PO ONE (16:30)
--- NOTE | 2017-06-06 17:40 | CONS ---
Date/Time of Note Date/Time of Note DATE: 06/06/17 TIME: 17:39 Assessment/Plan Assessment/Plan Additional Assessment/Plan Additional Assessment/Plan 1. Acute pancreatitis most probably related to the passage of bile duct stone 2. Hypertension 3. Kidneys stone by history 4. UTI 5. Leukocytosis which is trending down. 6. Jaundice, bilirubin trending down 7. Hyponatremia 8. Tachycardia Plan Patient's CA 199 and CEA both were within normal limit Her triglycerides level was also normal. Given the history of gallstone and mildly dilated bile duct I am more in favor of biliary pancreatitis. Correction of hyponatremia by giving patient free water Liver function needs to be monitored if bilirubin keeps going up and may need ERCP. Once pancreatitis is resolved would prefer to have cholecystectomy to prevent the second attack in the future Based on MRI and CT scan I doubt patient has autoimmune pancreatitis Advance diet Consultation Date/Type/Reason Admit Date/Time May 30, 2017 at 22:37 Initial Consult Date 05/31/17 Type of Consultation: ID [id number] HR Interval Summary Constitutional: improved Exam/Review of Systems Vital Signs Vitals Vital Signs Date Time Temp Pulse Resp B/P Pulse Ox O2 Delivery O2 Flow Rate FiO2 06/06/17 16:08 91 06/06/17 15:18 97.8 18 127/60 93 06/06/17 14:24 21 06/05/17 20:10 Nasal Cannula 3.0 Intake and Output 06/05/17 06/05/17 06/06/17 15:00 23:00 07:00 Intake Total 850 ml 1650 ml Output Total 1100 ml 400 ml Balance -250 ml 1250 ml Exam Constitutional: alert, oriented, well developed Psych: nl mood/affect, no complaints Head: atraumatic, normocephalic Eyes: EOMI, PERRL, nl conjunctiva, nl lids, nl sclera ENMT: nl external ears & nose, nl lips & teeth, nl nasal mucosa & septum Neck: non-tender, supple Respiratory: clear to auscultation, normal air movement Cardiovascular: nl pulses, regular rate and rhythm Gastrointestinal: nl liver, spleen, non-tender, soft Musculoskeletal: nl extremities to inspection, nl gait and stance Extremities: normal pulses 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, nl mental status, nl speech, nl strength Skin: nl turgor, No rash or lesions Lymph: nl lymph nodes Results Result Diagram: 06/06/17 0721 06/06/17 0721 Results 24 hrs Laboratory Tests Test 06/05/17 21:57 06/06/17 07:21 Sodium Level 140 142 Potassium Level 3.0 L 3.5 Chloride Level 99 102 Carbon Dioxide Level 28 29 Anion Gap 16 15 Blood Urea Nitrogen 14 13 Creatinine 0.62 0.68 Glucose Level 123 126 Calcium Level 7.6 L 7.6 L Total Bilirubin 1.4 H 1.4 H Direct Bilirubin 0.40 #H 0.40 H Indirect Bilirubin 1.0 1.0 Aspartate Amino Transf (AST/SGOT) 76 H 70 H Alanine Aminotransferase (ALT/SGPT) 51 54 Alkaline Phosphatase 63 70 Total Protein 5.9 #L 6.1 Albumin 2.7 L 2.8 L Globulin 3.20 3.30 H Albumin/Globulin Ratio 0.84 0.84 White Blood Count 13.1 H Red Blood Count 3.46 L Hemoglobin 9.5 L Hematocrit 29.3 L Mean Corpuscular Volume 84.7 Mean Corpuscular Hemoglobin 27.5 L Mean Corpuscular Hemoglobin Concent 32.4 Red Cell Distribution Width 13.8 Platelet Count 289 Mean Platelet Volume 9.9 Neutrophils % 68.1 Lymphocytes % 12.1 L Monocytes % 11.7 H Eosinophils % 2.4 Basophils % 0.5 Nucleated Red Blood Cells % 0.2 H Neutrophils # 8.9 H Lymphocytes # 1.6 Monocytes # 1.5 H Eosinophils # 0.3 Basophils # 0.1 Nucleated Red Blood Cells # 0.0 Amylase Level 173 H Lipase 216 Medications Medications Current Medications Ondansetron HCl (Zofran Inj) 4 mg Q6H PRN IV NAUSEA AND/OR VOMITING Last administered on 06/02/17 20:36; Admin Dose 4 MG; Start 05/31/17 at 00:30 Pantoprazole (Protonix Iv) 40 mg DAILY@06 IV Last administered on 06/06/17 05: 59; Admin Dose 40 MG; Start 05/31/17 at 06:00 Acetaminophen (Tylenol Tab) 650 mg Q6H PRN PO PAIN AND OR ELEVATED TEMP Last administered on 06/03/17 07:05; Admin Dose 650 MG; Start 05/31/17 at 00:30 Dorzolamide/ Timolol (Cosopt) 1 drop BID LEFT EYE Last administered on 20:38; Admin Dose 1 DROP; Start 06/01/17 at 09:00 Hydromorphone HCl (Dilaudid) 0.5 mg Q3H PRN IV PAIN Last administered on 10:22; Admin Dose 0.5 MG; Start 05/31/17 at 23:30 Latanoprost (Xalatan) 1 drop HS BOTH EYES Last administered on 06/05/17 20:38 ; Admin Dose 1 DROP; Start 06/01/17 at 21:00 Clonidine HCl (Catapres-Tts 1 Patch) 1 patch Q7D TRANSDERM Last administered on 06/01/17 14:57; Admin Dose 1 PATCH; Start 06/01/17 at 14:00 Hydralazine HCl 5 mg 5 mg Q6 IV Last administered on 06/06/17 05:58; Admin Dose 5 MG; Start 06/02/17 at 18:00 Potassium Chloride/Dextrose/ Sod Cl (D5-1/4ns + KCl 20 Meq) 1,000 ml @ 50 mls/ hr Q20H IV Last administered on 06/06/17 01:34; Admin Dose 50 MLS/HR; Start at 19:30 Bisacodyl (Dulcolax Supp) 10 mg DAILY PRN [place] CONSTIPATION Last administered on 06/05/17 09:40; Admin Dose 10 MG; Start 06/04/17 at 16:30 Guaifenesin/ Codeine Phosphate (Robitussin Ac Liquid Cup) 5 ml Q6H PRN PO COUGH Last administered on 06/06/17 01:33; Admin Dose 5 ML; Start 06/05/17 at 21:30 KILEY MATTHEW MD Jun 06, 2017 17:40
[2017-06-06] MEDS: LATANOPROST 0.005% 2.5 ML OPH BOTH EYES SCH (21:06)
--- NOTE | 2017-06-06 22:47 | PN ---
Date/Time of Note Date/Time of Note DATE: 06/06/17 TIME: 22:46 Assessment/Plan VTE Prophylaxis VTE Prophylaxis Intervention: other Lines/Catheters IV Catheter Type (from Nrs): Peripheral IV Urinary Cath still in place: Yes Reason Cath still needed: other (indicate) Assessment/Plan Chief Complaint/Hosp Course RES FAILURE BETTER PUL EDEMA BETTER PANCREATITIS BETTER SEPSIS PLAN LASIX PRN TELE LABS PER GI Problems: Subjective 24 Hr Interval Summary Cardiovascular: no complaints Gastrointestinal: no complaints Exam/Review of Systems Vital Signs Vitals Vital Signs Date Time Temp Pulse Resp B/P Pulse Ox O2 Delivery O2 Flow Rate FiO2 06/06/17 20:50 98.0 91 18 150/60 93 06/06/17 19:27 21 06/06/17 08:00 Nasal Cannula 3.0 Intake and Output 06/05/17 06/05/17 06/06/17 15:00 23:00 07:00 Intake Total 850 ml 1650 ml Output Total 1100 ml 400 ml Balance -250 ml 1250 ml Exam Respiratory: clear to auscultation Cardiovascular: regular rate and rhythm Gastrointestinal: soft Genitourinary - Female: nl external genitalia Musculoskeletal: nl extremities to inspection Results Result Diagram: 06/06/1772006/06/17 0721 Results 24 hrs Laboratory Tests Test 06/06/17 07:21 White Blood Count 13.1 H Red Blood Count 3.46 L Hemoglobin 9.5 L Hematocrit 29.3 L Mean Corpuscular Volume 84.7 Mean Corpuscular Hemoglobin 27.5 L Mean Corpuscular Hemoglobin Concent 32.4 Red Cell Distribution Width 13.8 Platelet Count 289 Mean Platelet Volume 9.9 Neutrophils % 68.1 Lymphocytes % 12.1 L Monocytes % 11.7 H Eosinophils % 2.4 Basophils % 0.5 Nucleated Red Blood Cells % 0.2 H Neutrophils # 8.9 H Lymphocytes # 1.6 Monocytes # 1.5 H Eosinophils # 0.3 Basophils # 0.1 Nucleated Red Blood Cells # 0.0 Sodium Level 142 Potassium Level 3.5 Chloride Level 102 Carbon Dioxide Level 29 Anion Gap 15 Blood Urea Nitrogen 13 Creatinine 0.68 Glucose Level 126 Calcium Level 7.6 L Total Bilirubin 1.4 H Direct Bilirubin 0.40 H Indirect Bilirubin 1.0 Aspartate Amino Transf (AST/SGOT) 70 H Alanine Aminotransferase (ALT/SGPT) 54 Alkaline Phosphatase 70 Total Protein 6.1 Albumin 2.8 L Globulin 3.30 H Albumin/Globulin Ratio 0.84 Amylase Level 173 H Lipase 216 Medications Medications Current Medications Ondansetron HCl (Zofran Inj) 4 mg Q6H PRN IV NAUSEA AND/OR VOMITING Last administered on 06/02/17 20:36; Admin Dose 4 MG; Start 05/31/17 at 00:30 Pantoprazole (Protonix Iv) 40 mg DAILY@06 IV Last administered on 06/06/17 05: 59; Admin Dose 40 MG; Start 05/31/17 at 06:00 Acetaminophen (Tylenol Tab) 650 mg Q6H PRN PO PAIN AND OR ELEVATED TEMP Last administered on 06/03/17 07:05; Admin Dose 650 MG; Start 05/31/17 at 00:30 Dorzolamide/ Timolol (Cosopt) 1 drop BID LEFT EYE Last administered on 21:06; Admin Dose 1 DROP; Start 06/01/17 at 09:00 Hydromorphone HCl (Dilaudid) 0.5 mg Q3H PRN IV PAIN Last administered on 10:22; Admin Dose 0.5 MG; Start 05/31/17 at 23:30 Latanoprost (Xalatan) 1 drop HS BOTH EYES Last administered on 06/06/17 21:06 ; Admin Dose 1 DROP; Start 06/01/17 at 21:00 Clonidine HCl (Catapres-Tts 1 Patch) 1 patch Q7D TRANSDERM Last administered on 06/01/17 14:57; Admin Dose 1 PATCH; Start 06/01/17 at 14:00 Hydralazine HCl 5 mg 5 mg Q6 IV Last administered on 06/06/17 05:58; Admin Dose 5 MG; Start 06/02/17 at 18:00 Potassium Chloride/Dextrose/ Sod Cl (D5-1/4ns + KCl 20 Meq) 1,000 ml @ 50 mls/ hr Q20H IV Last administered on 06/06/17 01:34; Admin Dose 50 MLS/HR; Start at 19:30 Bisacodyl (Dulcolax Supp) 10 mg DAILY PRN [place] CONSTIPATION Last administered on 06/05/17 09:40; Admin Dose 10 MG; Start 06/04/17 at 16:30 Guaifenesin/ Codeine Phosphate (Robitussin Ac Liquid Cup) 5 ml Q6H PRN PO COUGH Last administered on 06/06/17t 01:33; Admin Dose 5 ML; Start 06/05/17 at 21:30 KULDEEP OTTO MD Jun 06, 2017 22:46
[2017-06-07] VITALS (12 sets, daily range): BP systolic 129–141; BP diastolic 60–75; PULSE 86–115; RESP 16–19
[2017-06-07] MEDS: hydrALAzine 20 MG INJ IV SCH ×4 (00:38→17:25)
[2017-06-07] MEDS: GUAIFENESIN/CODEINE 5ML CUP PO PRN ×2 (00:38→21:12)
[2017-06-07] MEDS: ALBUTEROL/IPRATROPIUM (NEB) 3 ML AMP HHN SCH ×4 (02:14→20:09)
[2017-06-07] MEDS: D5-0.2 NACL + KCL 20 MEQ 1,000 ML IV SCH (06:00)
[2017-06-07] MEDS: PANTOPRAZOLE 40 MG INJ IV SCH (06:00)
[2017-06-07 06:24] LABS: ADD SCAN DIFF NO
[2017-06-07 06:36] LABS: ABNORMAL IP MESSAGE 1; BASOPHIL # 0.1 10^3/ul (0.0-0.1); BASOPHILS % 0.5 % (0.0-2.0); EOSINOPHILS # 0.2 10^3/ul (0.0-0.5); EOSINOPHILS % 1.8 % (0.0-7.0); ERYTHROBLAST% (NRBC) (M) 0.2 /100WBC (0.0-0.0); HEMATOCRIT 27.3 % (37.0-47.0); HEMOGLOBIN 8.8 g/dl (12.0-16.0); LYMPHOCYTES # 1.3 10^3/ul (0.8-2.9); MEAN CORPUSCULAR HEMOGLOBIN 27.2 pg (29.0-33.0); MEAN CORPUSCULAR HGB CONC 32.2 g/dl (32.0-37.0); MEAN CORPUSCULAR VOLUME 84.5 fl (82.0-101.0); MONOCYTE # 1.4 10^3/ul (0.3-0.9); MONOCYTES % 10.8 % (0.0-11.0); NEUTROPHIL # 9.3 10^3/ul (1.6-7.5); NEUTROPHILS % 71.4 % (39.0-77.0); PLATELET COUNT 299 10^3/UL (140-415); RED BLOOD COUNT 3.23 10^6/ul (4.20-5.40); RED CELL DISTRIBUTION WIDTH 13.9 % (11.5-14.5)
--- NOTE | 2017-06-07 06:52 | RADRPT ---
PROCEDURE: US Abdomen and Retroperitoneum. CLINICAL INDICATION: Abdominal pain. TECHNIQUE: Multiple real-time longitudinal and transverse images were acquired of the patient's ab domen and retroperitoneum utilizing a curved array transducer. COMPARISON: MRI, 05/31/2017. FINDINGS: Liver demonstrates coarsening of the liver echotexture. No focal liver mass. Portal vein demonstrates hepatopetal flow. Gallbladder demonstrate multiple gallstones. There is no gallbladder wall thickening or pericholecy stic fluid. No intra- or extrahepatic biliary dilation. Pancreas is partially visualized and grossly unremarkable. Spleen is normal in size. No hydronephrosis or nephrolithiasis. There is a 2 cm cyst within the left kidney No ascites. There is a small right pleural effusion. Proximal aorta and IVC are unremarkable. MEASUREMENTS: Liver: 12.4 cm Common Duct: 0.8 cm Right Kidney: 8.4 cm Left Kidney: 9.9 cm Spleen: 9.2 cm IMPRESSION: Cholelithiasis with mild extrahepatic biliary dilatation. Coarsening of the liver echotexture with morphologic changes of the liver, suggesting underlying dif fuse liver disease. Small right pleural effusion. RPTAT: EE .Vaughn Cuadra MD, MD Date Time Electronically viewed and signed by .Vaughn Cuadra MD, MD on 06/07/2017 06:56 .C/
[2017-06-07 07:07] LABS: ALBUMIN 2.5 g/dl (3.3-4.9); ALBUMIN/GLOBULIN RATIO 0.8; BILIRUBIN,INDIRECT 0.9 mg/dl (0-1.1); BILIRUBIN,TOTAL 0.9 mg/dl (0.2-1.3); CALCIUM 7.7 mg/dl (8.4-10.2); CREATININE 0.57 mg/dl (0.44-1.00); POTASSIUM 3.3 mmol/L (3.5-5.1); TOTAL PROTEIN 5.6 g/dl (6.1-8.1)
[2017-06-07] MEDS: DORZOLAMIDE/TIMOLOL 10 ML OPH LEFT EYE SCH ×2 (08:34→21:13)
--- NOTE | 2017-06-07 10:19 | PN ---
Date/Time of Note Date/Time of Note DATE: 06/07/17 TIME: 10:09 Assessment/Plan Lines/Catheters IV Catheter Type (from Nrs): Peripheral IV Sher in Place (from Nrs): Yes Assessment/Plan Chief Complaint/Hosp Course 1. Acute pancreatitis: likely 2/2 cholelithiasis; MRI abdomen: Cholelithiasis with gallbladder distension and no gallbladder wall thickening. Common bile duct dilatation without evidence of choledocholithiasis. Extensive peripancreatic edema surrounding the head and uncinate process extending into the right retroperitoneum. No evidence of organized fluid collection; min RUQ pain: repeat US: Cholelithiasis with mild extrahepatic biliary dilatation. Coarsening of the liver echotexture with morphologic changes of the liver, suggesting underlying diffuse liver disease. amylase/lipase normalized -judicious IV fluids -pain control -started on clears -abx 2 Cholelithiasis: bili improved -eventual lap amy when fully optimize 3. Leukocytosis with bandemia: likely 2/2 above; afebrile, unchanged -supportive -as above 3.Hypokalemia: s/p lasix -replete -monitor for cardiac arrhythmias 4. Hypocalcemia: likely 2/2 poor nutrition; -nutrition optimization as patient condition permits -optimize lytes 5. Hypernatremia -judicious fluid management 6. Shortness of breath: fluid overload; CXR: Left ventricular enlargement with increased pulmonary vascularity suspicious for mild CHF with subsegmental atelectasis in lung bases; Small right pleural effusion. -diuretics -breathing tx -judicious iv fluids 7. Hyperbilirubinemia: 2/2 above; normalized -supportive -eventual lap amy Patient seen and examined in collaboration with Dr. Zohaib Gaytan Problems: Subjective 24 Hr Interval Summary Feeling better. abdominal pain improved. bloating, +flatus, Tolerating clears. Min SOB.No n/v/d. No fevers, chills, linder, sz, cp, palpitations, sob, itching. Exam/Review of Systems Vital Signs Vitals Vital Signs Date Time Temp Pulse Resp B/P Pulse Ox O2 Delivery O2 Flow Rate FiO2 06/07/17 08:05 94 06/07/17 07:48 94 21 06/07/17 07:48 16 06/07/17 07:29 97.8 130/75 06/06/17 22:53 Nasal Cannula 3.0 Intake and Output 06/06/17 06/06/17 06/07/17 15:00 23:00 07:00 Intake Total 1100 ml 250 ml Output Total 500 ml 1050 ml Balance 600 ml -800 ml Exam Free Text/Dictation Constitutional: alert, oriented, well developed, diaphoretic Psych: nl mood Head: atraumatic, normocephalic Eyes: nl lids, nl sclera ENMT: No mucosa pink and moist (pink and dry) Neck: supple, jvd Respiratory: crackles; diminished at bases Cardiovascular: regular rate and rhythm, No murmurs/extra sounds Gastrointestinal: bowel sounds (x 4 quads), distended (min/mod), min rebound or guarding, min tender Genitourinary - Female: No CVA tenderness; sher with kelsey urine Musculoskeletal: nl extremities to inspection Extremities: normal pulses, No edema Neurological: nl mental status, nl speech, nl strength Skin: nl turgor, no discoloration Results Result Diagram: 06/07/17 0618 06/07/17 0618 DIDI MCCAIN NP Jun 07, 2017 10:18
[2017-06-07] MEDS ORDERED: POTASSIUM CHLORIDE 250 ML IVPB ONE (16:30)
--- NOTE | 2017-06-07 18:57 | CONS ---
Date/Time of Note Date/Time of Note DATE: 06/07/17 TIME: 18:56 Assessment/Plan Assessment/Plan Additional Assessment/Plan Additional Assessment/Plan 1. Acute pancreatitis most probably related to the passage of bile duct stone, much better amylase lipase completely normal 2. Hypertension 3. Kidneys stone by history 4. UTI 5. Leukocytosis which is trending down. 6. Jaundice, bilirubin trending down 7. Hyponatremia 8. Tachycardia Plan Patient's CA 199 and CEA both were within normal limit Her triglycerides level was also normal. Given the history of gallstone and mildly dilated bile duct I am more in favor of biliary pancreatitis. Correction of hyponatremia by giving patient free water Liver function needs to be monitored if bilirubin keeps going up and may need ERCP. Once pancreatitis is resolved would prefer to have cholecystectomy to prevent the second attack in the future Based on MRI and CT scan I doubt patient has autoimmune pancreatitis Advance diet Discussed with Dr. Whitaker patient needs cholecystectomy Consultation Date/Type/Reason Admit Date/Time May 30, 2017 at 22:37 Initial Consult Date 05/31/17 Type of Consultation: ID 24 HR Interval Summary Constitutional: improved, no complaints Exam/Review of Systems Vital Signs Vitals Vital Signs Date Time Temp Pulse Resp B/P Pulse Ox O2 Delivery O2 Flow Rate FiO2 06/07/17 16:03 115 06/07/17 14:50 98.2 16 140/60 97 06/07/17 13:46 21 06/06/17 22:53 Nasal Cannula 3.0 Intake and Output 06/06/17 06/06/17 06/07/17 15:00 23:00 07:00 Intake Total 1100 ml 250 ml Output Total 500 ml 1050 ml Balance 600 ml -800 ml Exam Constitutional: alert, oriented, well developed Psych: nl mood/affect, no complaints Head: atraumatic, normocephalic Eyes: EOMI, PERRL, nl conjunctiva, nl lids, nl sclera ENMT: nl external ears & nose, nl lips & teeth, nl nasal mucosa & septum Neck: non-tender, supple Respiratory: clear to auscultation, normal air movement Cardiovascular: nl pulses, regular rate and rhythm Gastrointestinal: nl liver, spleen, non-tender, soft Musculoskeletal: nl extremities to inspection, nl gait and stance Extremities: normal pulses 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, nl mental status, nl speech, nl strength Skin: nl turgor, No rash or lesions Lymph: nl lymph nodes Results Result Diagram: 06/07/17 0618 06/07/17 0618 Results 24 hrs Laboratory Tests Test 06/07/17 06:18 White Blood Count 13.0 H Red Blood Count 3.23 L Hemoglobin 8.8 L Hematocrit 27.3 L Mean Corpuscular Volume 84.5 Mean Corpuscular Hemoglobin 27.2 L Mean Corpuscular Hemoglobin Concent 32.2 Red Cell Distribution Width 13.9 Platelet Count 299 Mean Platelet Volume 10.0 Neutrophils % 71.4 Lymphocytes % 10.0 L Monocytes % 10.8 Eosinophils % 1.8 Basophils % 0.5 Nucleated Red Blood Cells % 0.2 H Neutrophils # 9.3 H Lymphocytes # 1.3 Monocytes # 1.4 H Eosinophils # 0.2 Basophils # 0.1 Nucleated Red Blood Cells # 0.0 Sodium Level 142 Potassium Level 3.3 L Chloride Level 103 Carbon Dioxide Level 28 Anion Gap 14 Blood Urea Nitrogen 11 Creatinine 0.57 Glucose Level 114 Calcium Level 7.7 L Total Bilirubin 0.9 Direct Bilirubin 0.00 # Indirect Bilirubin 0.9 Aspartate Amino Transf (AST/SGOT) 63 H Alanine Aminotransferase (ALT/SGPT) 56 Alkaline Phosphatase 75 Total Protein 5.6 L Albumin 2.5 L Globulin 3.10 Albumin/Globulin Ratio 0.80 Amylase Level 123 Lipase 274 Medications Medications Current Medications Ondansetron HCl (Zofran Inj) 4 mg Q6H PRN IV NAUSEA AND/OR VOMITING Last administered on 06/02/17 20:36; Admin Dose 4 MG; Start 05/31/17 at 00:30 Pantoprazole (Protonix Iv) 40 mg DAILY@06 IV Last administered on 06/07/17 06: 00; Admin Dose 40 MG; Start 05/31/17 at 06:00 Acetaminophen (Tylenol Tab) 650 mg Q6H PRN PO PAIN AND OR ELEVATED TEMP Last administered on 06/03/17 07:05; Admin Dose 650 MG; Start 05/31/17 at 00:30 Dorzolamide/ Timolol (Cosopt) 1 drop BID LEFT EYE Last administered on 08:34; Admin Dose 1 DROP; Start 06/01/17 at 09:00 Hydromorphone HCl (Dilaudid) 0.5 mg Q3H PRN IV PAIN Last administered on 10:22; Admin Dose 0.5 MG; Start 05/31/17 at 23:30 Latanoprost (Xalatan) 1 drop HS BOTH EYES Last administered on 06/06/17 21:06 ; Admin Dose 1 DROP; Start 06/01/17 at 21:00 Clonidine HCl (Catapres-Tts 1 Patch) 1 patch Q7D TRANSDERM Last administered on 06/01/17 14:57; Admin Dose 1 PATCH; Start 06/01/17 at 14:00 Hydralazine HCl 5 mg 5 mg Q6 IV Last administered on 06/07/17 17:25; Admin Dose 5 MG; Start 06/02/17 at 18:00 Potassium Chloride/Dextrose/ Sod Cl (D5-1/4ns + KCl 20 Meq) 1,000 ml @ 50 mls/ hr Q20H IV Last administered on 06/07/17 06:00; Admin Dose 50 MLS/HR; Start at 19:30 Bisacodyl (Dulcolax Supp) 10 mg DAILY PRN [place] CONSTIPATION Last administered on 06/05/17 09:40; Admin Dose 10 MG; Start 06/04/17 at 16:30 Guaifenesin/ Codeine Phosphate 5 ml 5 ml Q6H PRN PO COUGH Last administered on 06/07/17 00:38; Admin Dose 5 ML; Start 06/05/17 at 21:30 Potassium Chloride (KCl 40 MEQ/250 ML NS) 250 ml @ 62.5 mls/hr ONCE ONCE IVPB Last administered on 06/07/17 16:55; Admin Dose 62.5 MLS/HR; Start 06/07/17 at 16:30; Stop 06/07/17 at 20:29 KILEY MATTHEW MD Jun 07, 2017 18:57
[2017-06-07] MEDS: LATANOPROST 0.005% 2.5 ML OPH BOTH EYES SCH (21:13)
[2017-06-07] MEDS: BISACODYL 10 MG SUPP PR PRN (21:13)
--- NOTE | 2017-06-07 21:44 | CONS ---
Date/Time of Note Date/Time of Note DATE: 06/07/17 TIME: 21:43 Assessment/Plan Assessment/Plan Chief Complaint/Hosp Course No acute changes, no fevers, looks comfortable Microbiology: Blood and urine culture remain negative Physical examination: Fragile elderly woman who is in no distress. Head atraumatic normocephalic, sclera nonicteric, bugle mucosa dry. Neck is supple, trachea midline. Chest rise symmetrical breath sounds diminished basis. Heart : S1, S2. Abdomen soft, bowel tones present. Extremities without cyanosis Assessment: 1. Systemic inflammatory response syndrome 2. Acute pancreatitis possibly secondary to passage of bile duct stone 3. COPD exacerbation 4. Cholelithiasis Plan: Off antibiotics, overall improving, GI recommendations noted, will require cholecystectomy when medically stable NANI RN Problems: Consultation Date/Type/Reason Admit Date/Time May 30, 2017 at 22:37 Initial Consult Date 05/31/17 Type of Consultation: ID Exam/Review of Systems Vital Signs Vitals Vital Signs Date Time Temp Pulse Resp B/P Pulse Ox O2 Delivery O2 Flow Rate FiO2 06/07/17 21:26 114 06/07/17 20:26 98.0 17 140/62 94 06/07/17 20:19 21 06/06/17 22:53 Nasal Cannula 3.0 Intake and Output 06/06/17 06/06/17 06/07/17 15:00 23:00 07:00 Intake Total 1100 ml 250 ml Output Total 500 ml 1050 ml Balance 600 ml -800 ml Results Result Diagram: 06/07/17 0618 06/07/17 0618 Results 24 hrs Laboratory Tests Test 06/07/17 06:18 White Blood Count 13.0 H Red Blood Count 3.23 L Hemoglobin 8.8 L Hematocrit 27.3 L Mean Corpuscular Volume 84.5 Mean Corpuscular Hemoglobin 27.2 L Mean Corpuscular Hemoglobin Concent 32.2 Red Cell Distribution Width 13.9 Platelet Count 299 Mean Platelet Volume 10.0 Neutrophils % 71.4 Lymphocytes % 10.0 L Monocytes % 10.8 Eosinophils % 1.8 Basophils % 0.5 Nucleated Red Blood Cells % 0.2 H Neutrophils # 9.3 H Lymphocytes # 1.3 Monocytes # 1.4 H Eosinophils # 0.2 Basophils # 0.1 Nucleated Red Blood Cells # 0.0 Sodium Level 142 Potassium Level 3.3 L Chloride Level 103 Carbon Dioxide Level 28 Anion Gap 14 Blood Urea Nitrogen 11 Creatinine 0.57 Glucose Level 114 Calcium Level 7.7 L Total Bilirubin 0.9 Direct Bilirubin 0.00 # Indirect Bilirubin 0.9 Aspartate Amino Transf (AST/SGOT) 63 H Alanine Aminotransferase (ALT/SGPT) 56 Alkaline Phosphatase 75 Total Protein 5.6 L Albumin 2.5 L Globulin 3.10 Albumin/Globulin Ratio 0.80 Amylase Level 123 Lipase 274 Medications Medications Current Medications Ondansetron HCl (Zofran Inj) 4 mg Q6H PRN IV NAUSEA AND/OR VOMITING Last administered on 06/02/17 20:36; Admin Dose 4 MG; Start 05/31/17 at 00:30 Pantoprazole (Protonix Iv) 40 mg DAILY@06 IV Last administered on 06/07/17 06: 00; Admin Dose 40 MG; Start 05/31/17 at 06:00 Acetaminophen (Tylenol Tab) 650 mg Q6H PRN PO PAIN AND OR ELEVATED TEMP Last administered on 06/03/17 07:05; Admin Dose 650 MG; Start 05/31/17 at 00:30 Dorzolamide/ Timolol (Cosopt) 1 drop BID LEFT EYE Last administered on 21:13; Admin Dose 1 DROP; Start 06/01/17 at 09:00 Hydromorphone HCl (Dilaudid) 0.5 mg Q3H PRN IV PAIN Last administered on 10:22; Admin Dose 0.5 MG; Start 05/31/17 at 23:30 Latanoprost (Xalatan) 1 drop HS BOTH EYES Last administered on 06/07/17 21:13 ; Admin Dose 1 DROP; Start 06/01/17 at 21:00 Clonidine HCl (Catapres-Tts 1 Patch) 1 patch Q7D TRANSDERM Last administered on 06/01/17 14:57; Admin Dose 1 PATCH; Start 06/01/17 at 14:00 Hydralazine HCl 5 mg 5 mg Q6 IV Last administered on 06/07/17 17:25; Admin Dose 5 MG; Start 06/02/17 at 18:00 Potassium Chloride/Dextrose/ Sod Cl (D5-1/4ns + KCl 20 Meq) 1,000 ml @ 50 mls/ hr Q20H IV Last administered on 06/07/17 06:00; Admin Dose 50 MLS/HR; Start at 19:30 Bisacodyl (Dulcolax Supp) 10 mg DAILY PRN [place] CONSTIPATION Last administered on 06/07/17 21:13; Admin Dose 10 MG; Start 06/04/17 at 16:30 Guaifenesin/ Codeine Phosphate (Robitussin Ac Liquid Cup) 5 ml Q6H PRN PO COUGH Last administered on 06/07/17 21:12; Admin Dose 5 ML; Start 06/05/17 at 21:30 DEBRA CLARK SCAN COORDINATOR Jun 07, 2017 21:44
--- NOTE | 2017-06-07 22:48 | PN ---
Date/Time of Note Date/Time of Note DATE: 06/07/17 TIME: 22:46 Assessment/Plan VTE Prophylaxis VTE Prophylaxis Intervention: other Lines/Catheters IV Catheter Type (from Nrsg): Peripheral IV Urinary Cath still in place: Yes Reason Cath still needed: other (indicate) Assessment/Plan Chief Complaint/Hosp Course RES FAILURE BETTER PUL EDEMA BETTER PANCREATITIS BETTER SEPSIS PLAN LASIX PRN TELE LABS PER GI SURGERY SOON Problems: Subjective 24 Hr Interval Summary Cardiovascular: no complaints Gastrointestinal: pain (BETTER) Exam/Review of Systems Vital Signs Vitals Vital Signs Date Time Temp Pulse Resp B/P Pulse Ox O2 Delivery O2 Flow Rate FiO2 06/07/17 21:26 114 06/07/17 20:26 98.0 17 140/62 94 06/07/17 20:19 21 06/06/17 22:53 Nasal Cannula 3.0 Intake and Output 06/06/17 06/06/17 06/07/17 15:00 23:00 07:00 Intake Total 1100 ml 250 ml Output Total 500 ml 1050 ml Balance 600 ml -800 ml Exam Respiratory: clear to auscultation Cardiovascular: diastolic murmur Gastrointestinal: bowel sounds, soft Musculoskeletal: nl extremities to inspection Results Result Diagram: 06/07/17 0618 06/07/17 0618 Results 24 hrs Laboratory Tests Test 06/07/17 06:18 White Blood Count 13.0 H Red Blood Count 3.23 L Hemoglobin 8.8 L Hematocrit 27.3 L Mean Corpuscular Volume 84.5 Mean Corpuscular Hemoglobin 27.2 L Mean Corpuscular Hemoglobin Concent 32.2 Red Cell Distribution Width 13.9 Platelet Count 299 Mean Platelet Volume 10.0 Neutrophils % 71.4 Lymphocytes % 10.0 L Monocytes % 10.8 Eosinophils % 1.8 Basophils % 0.5 Nucleated Red Blood Cells % 0.2 H Neutrophils # 9.3 H Lymphocytes # 1.3 Monocytes # 1.4 H Eosinophils # 0.2 Basophils # 0.1 Nucleated Red Blood Cells # 0.0 Sodium Level 142 Potassium Level 3.3 L Chloride Level 103 Carbon Dioxide Level 28 Anion Gap 14 Blood Urea Nitrogen 11 Creatinine 0.57 Glucose Level 114 Calcium Level 7.7 L Total Bilirubin 0.9 Direct Bilirubin 0.00 # Indirect Bilirubin 0.9 Aspartate Amino Transf (AST/SGOT) 63 H Alanine Aminotransferase (ALT/SGPT) 56 Alkaline Phosphatase 75 Total Protein 5.6 L Albumin 2.5 L Globulin 3.10 Albumin/Globulin Ratio 0.80 Amylase Level 123 Lipase 274 Medications Medications Current Medications Ondansetron HCl (Zofran Inj) 4 mg Q6H PRN IV NAUSEA AND/OR VOMITING Last administered on 06/02/17 20:36; Admin Dose 4 MG; Start 05/31/17 at 00:30 Pantoprazole (Protonix Iv) 40 mg DAILY@06 IV Last administered on 06/07/17 06: 00; Admin Dose 40 MG; Start 05/31/17 at 06:00 Acetaminophen (Tylenol Tab) 650 mg Q6H PRN PO PAIN AND OR ELEVATED TEMP Last administered on 06/03/17 07:05; Admin Dose 650 MG; Start 05/31/17 at 00:30 Dorzolamide/ Timolol (Cosopt) 1 drop BID LEFT EYE Last administered on 21:13; Admin Dose 1 DROP; Start 06/01/17 at 09:00 Hydromorphone HCl (Dilaudid) 0.5 mg Q3H PRN IV PAIN Last administered on 10:22; Admin Dose 0.5 MG; Start 05/31/17 at 23:30 Latanoprost (Xalatan) 1 drop HS BOTH EYES Last administered on 06/07/17 21:13 ; Admin Dose 1 DROP; Start 06/01/17 at 21:00 Clonidine HCl (Catapres-Tts 1 Patch) 1 patch Q7D TRANSDERM Last administered on 06/01/17 14:57; Admin Dose 1 PATCH; Start 06/01/17 at 14:00 Hydralazine HCl 5 mg 5 mg Q6 IV Last administered on 06/07/17 17:25; Admin Dose 5 MG; Start 06/02/17 at 18:00 Potassium Chloride/Dextrose/ Sod Cl (D5-1/4ns + KCl 20 Meq) 1,000 ml @ 50 mls/ hr Q20H IV Last administered on 06/07/17 06:00; Admin Dose 50 MLS/HR; Start at 19:30 Bisacodyl (Dulcolax Supp) 10 mg DAILY PRN [place] CONSTIPATION Last administered on 06/07/17 21:13; Admin Dose 10 MG; Start 06/04/17 at 16:30 Guaifenesin/ Codeine Phosphate (Robitussin Ac Liquid Cup) 5 ml Q6H PRN PO COUGH Last administered on 06/07/17t 21:12; Admin Dose 5 ML; Start 06/05/17 at 21:30 KULDEEP OTTO MD Jun 07, 2017 22:47
[2017-06-08] MEDS: hydrALAzine 20 MG INJ IV SCH ×3 (00:57→12:49)
[2017-06-08 02:00] VITALS: BP 148/65; RESP 18
[2017-06-08] MEDS: ALBUTEROL/IPRATROPIUM (NEB) 3 ML AMP HHN SCH ×4 (02:00→19:55)
[2017-06-08] MEDS: D5-0.2 NACL + KCL 20 MEQ 1,000 ML IV SCH ×2 (05:04→19:30)
[2017-06-08] MEDS: PANTOPRAZOLE 40 MG INJ IV SCH (05:10)
[2017-06-08 06:37] LABS: ALBUMIN 2.5 g/dl (3.3-4.9); ALBUMIN/GLOBULIN RATIO 0.8; BILIRUBIN,INDIRECT 0.6 mg/dl (0-1.1); BILIRUBIN,TOTAL 0.6 mg/dl (0.2-1.3); CALCIUM 7.6 mg/dl (8.4-10.2); CREATININE 0.63 mg/dl (0.44-1.00); POTASSIUM 3.9 mmol/L (3.5-5.1); TOTAL PROTEIN 5.6 g/dl (6.1-8.1)
[2017-06-08 08:33] VITALS: BP 152/66; RESP 16
[2017-06-08] MEDS: DORZOLAMIDE/TIMOLOL 10 ML OPH LEFT EYE SCH ×2 (10:37→20:44)
--- NOTE | 2017-06-08 10:41 | PN ---
Date/Time of Note Date/Time of Note DATE: 06/08/17 TIME: 10:39 Assessment/Plan VTE Prophylaxis VTE Prophylaxis Intervention: ambulation Lines/Catheters IV Catheter Type (from [facility]): Peripheral IV Urinary Cath still in place: No Assessment/Plan Chief Complaint/Hosp Course 1. Acute pancreatitis. 2 Cholelithiasis 3.SIRS 3.electrolyte imbalance Problems: Assessment/Plan 1. continue current regime Subjective 24 Hr Interval Summary Gastrointestinal: pain Exam/Review of Systems Vital Signs Vitals Vital Signs Date Time Temp Pulse Resp B/P Pulse Ox O2 Delivery O2 Flow Rate FiO2 06/08/17 09:26 106 22 94 21 06/08/17 08:33 98.5 152/66 06/06/17 22:53 Nasal Cannula 3.0 Intake and Output 06/07/17 06/07/17 06/08/17 15:00 23:00 07:00 Intake Total 1600 ml 600 ml Output Total 1200 ml Balance 400 ml 600 ml Exam Constitutional: alert, oriented ENMT: nl external ears & nose Neck: supple Respiratory: clear to auscultation Gastrointestinal: rebound or guarding, soft, surgical scars Results Result Diagram: 06/07/17 0618 06/08/17 0523 Results 24 hrs Laboratory Tests Test 06/08/17 01:13 06/08/17 05:23 Troponin I 0.014 0.017 Sodium Level 140 Potassium Level 3.9 Chloride Level 105 Carbon Dioxide Level 25 Anion Gap 14 Blood Urea Nitrogen 10 Creatinine 0.63 Glucose Level 139 Calcium Level 7.6 L Total Bilirubin 0.6 Direct Bilirubin 0.00 Indirect Bilirubin 0.6 Aspartate Amino Transf (AST/SGOT) 57 H Alanine Aminotransferase (ALT/SGPT) 55 Alkaline Phosphatase 83 Total Protein 5.6 L Albumin 2.5 L Globulin 3.10 Albumin/Globulin Ratio 0.80 Medications Medications Current Medications Ondansetron HCl (Zofran Inj) 4 mg Q6H PRN IV NAUSEA AND/OR VOMITING Last administered on 06/02/17 20:36; Admin Dose 4 MG; Start 05/31/17 at 00:30 Pantoprazole (Protonix Iv) 40 mg DAILY@06 IV Last administered on 06/08/17 05: 10; Admin Dose 40 MG; Start 05/31/17 at 06:00 Acetaminophen (Tylenol Tab) 650 mg Q6H PRN PO PAIN AND OR ELEVATED TEMP Last administered on 06/03/17 07:05; Admin Dose 650 MG; Start 05/31/17 at 00:30 Dorzolamide/ Timolol (Cosopt) 1 drop BID LEFT EYE Last administered on 10:37; Admin Dose 1 DROP; Start 06/01/17 at 09:00 Hydromorphone HCl (Dilaudid) 0.5 mg Q3H PRN IV PAIN Last administered on 10:22; Admin Dose 0.5 MG; Start 05/31/17 at 23:30 Latanoprost (Xalatan) 1 drop HS BOTH EYES Last administered on 06/07/17 21:13 ; Admin Dose 1 DROP; Start 06/01/17 at 21:00 Clonidine HCl (Catapres-Tts 1 Patch) 1 patch Q7D TRANSDERM Last administered on 06/01/17 14:57; Admin Dose 1 PATCH; Start 06/01/17 at 14:00 Hydralazine HCl 5 mg 5 mg Q6 IV Last administered on 06/08/17 05:11; Admin Dose 5 MG; Start 06/02/17 at 18:00 Potassium Chloride/Dextrose/ Sod Cl (D5-1/4ns + KCl 20 Meq) 1,000 ml @ 50 mls/ hr Q20H IV Last administered on 06/08/17 05:04; Admin Dose 50 MLS/HR; Start at 19:30 Bisacodyl (Dulcolax Supp) 10 mg DAILY PRN [place] CONSTIPATION Last administered on 06/07/17 21:13; Admin Dose 10 MG; Start 06/04/17 at 16:30 Guaifenesin/ Codeine Phosphate (Robitussin Ac Liquid Cup) 5 ml Q6H PRN PO COUGH Last administered on 06/07/17 21:12; Admin Dose 5 ML; Start 06/05/17 at 21:30 EAN INIGUEZ Jun 08, 2017 10:40
[2017-06-08 12:38] VITALS: BP 121/59; PULSE 95
[2017-06-08 14:00] VITALS: BP 129/61; RESP 16
--- NOTE | 2017-06-08 14:49 | CONS ---
Date/Time of Note Date/Time of Note DATE: 06/08/17 TIME: 14:43 Assessment/Plan Assessment/Plan Chief Complaint/Hosp Course IMP: 1.pre-op for possible amy 2.abnl ecg-negative trop x 3 3.HTN 4.Pancreatitis-improving/? gallstone 5.Cholelithiasis Recc -Will f/u echo -Started on liquid diet -Continue clonidine TTS and will make hydralazine IVP PRN Problems: Consultation Date/Type/Reason Admit Date/Time May 30, 2017 at 22:37 Initial Consult Date 05/31/17 Type of Consultation: cardiology Reason for Consultation pre-op Referring Provider: KULDEEP OTTO MD Exam/Review of Systems Vital Signs Vitals Vital Signs Date Time Temp Pulse Resp B/P Pulse Ox O2 Delivery O2 Flow Rate FiO2 06/08/17 14:00 98.4 98 16 129/61 96 06/08/17 13:10 21 06/06/17 22:53 Nasal Cannula 3.0 Intake and Output 06/07/17 06/07/17 06/08/17 14:59 22:59 06:59 Intake Total 1600 ml 600 ml Output Total 1200 ml Balance 400 ml 600 ml Exam Review of Systems: CONSTITUTIONAL: No fevers, chills. PULMONARY: No sob CARDIOVASCULAR: No chest pain/palpitations GASTROINTESTINAL: abd pain GENITOURINARY: No hematuria/dysuria. MUSCULOSKELETAL: No myagias/arthalgias. PSYCHIATRIC: The patient denies depression. NEUROLOGIC: No weakness Constitutional: alert Psych: no complaints Head: normocephalic ENMT: mucosa pink and moist Neck: jvd (9 cm water), supple Respiratory: diminished breath sounds (at bases/B) Cardiovascular: regular rate and rhythm Gastrointestinal: soft, tender Musculoskeletal: muscle tone (normal) Extremities: edema (trace/B) Neurological: other (No focal deficits) Results Result Diagram: 06/07/17 0618 06/08/17 0523 Results 24 hrs Laboratory Tests Test 06/08/17 01:13 06/08/17 05:23 06/08/17 12:00 Troponin I 0.014 0.017 0.012 Sodium Level 140 Potassium Level 3.9 Chloride Level 105 Carbon Dioxide Level 25 Anion Gap 14 Blood Urea Nitrogen 10 Creatinine 0.63 Glucose Level 139 Calcium Level 7.6 L Total Bilirubin 0.6 Direct Bilirubin 0.00 Indirect Bilirubin 0.6 Aspartate Amino Transf (AST/SGOT) 57 H Alanine Aminotransferase (ALT/SGPT) 55 Alkaline Phosphatase 83 Total Protein 5.6 L Albumin 2.5 L Globulin 3.10 Albumin/Globulin Ratio 0.80 Medications Medications Current Medications Ondansetron HCl (Zofran Inj) 4 mg Q6H PRN IV NAUSEA AND/OR VOMITING Last administered on 06/02/17 20:36; Admin Dose 4 MG; Start 05/31/17 at 00:30 Pantoprazole (Protonix Iv) 40 mg DAILY@06 IV Last administered on 06/08/17 05: 10; Admin Dose 40 MG; Start 05/31/17 at 06:00 Acetaminophen (Tylenol Tab) 650 mg Q6H PRN PO PAIN AND OR ELEVATED TEMP Last administered on 06/03/17 07:05; Admin Dose 650 MG; Start 05/31/17 at 00:30 Dorzolamide/ Timolol (Cosopt) 1 drop BID LEFT EYE Last administered on 10:37; Admin Dose 1 DROP; Start 06/01/17 at 09:00 Hydromorphone HCl (Dilaudid) 0.5 mg Q3H PRN IV PAIN Last administered on 10:22; Admin Dose 0.5 MG; Start 05/31/17 at 23:30 Latanoprost (Xalatan) 1 drop HS BOTH EYES Last administered on 06/07/17 21:13 ; Admin Dose 1 DROP; Start 06/01/17 at 21:00 Clonidine HCl (Catapres-Tts 1 Patch) 1 patch Q7D TRANSDERM Last administered on 06/01/17 14:57; Admin Dose 1 PATCH; Start 06/01/17 at 14:00 Hydralazine HCl 5 mg 5 mg Q6 IV Last administered on 06/08/17 12:49; Admin Dose 5 MG; Start 06/02/17 at 18:00 Potassium Chloride/Dextrose/ Sod Cl (D5-1/4ns + KCl 20 Meq) 1,000 ml @ 50 mls/ hr Q20H IV Last administered on 06/08/17 05:04; Admin Dose 50 MLS/HR; Start at 19:30 Bisacodyl (Dulcolax Supp) 10 mg DAILY PRN [place] CONSTIPATION Last administered on 06/07/17 21:13; Admin Dose 10 MG; Start 06/04/17 at 16:30 Guaifenesin/ Codeine Phosphate (Robitussin Ac Liquid Cup) 5 ml Q6H PRN PO COUGH Last administered on 06/07/17 21:12; Admin Dose 5 ML; Start 06/05/17 at 21:30 DANIELLE DELVALLE Jun 08, 2017 14:49
[2017-06-08] MEDS: CLONIDINE 0.1 MG/24 HR PATCH TRANSDERM SCH (15:03)
--- NOTE | 2017-06-08 15:13 | CONS ---
Date/Time of Note Date/Time of Note DATE: 06/08/17 TIME: 15:12 Assessment/Plan Assessment/Plan Chief Complaint/Hosp Course No acute changes, no fevers, awake, sitting up in a chair, looks comfortable Microbiology: Blood and urine culture remain negative Physical examination: Fragile elderly woman who is in no distress. Head atraumatic normocephalic, sclera nonicteric, bugle mucosa dry. Neck is supple, trachea midline. Chest rise symmetrical breath sounds diminished basis. Heart : S1, S2. Abdomen soft, bowel tones present. Extremities without cyanosis Assessment: 1. Systemic inflammatory response syndrome 2. Acute pancreatitis possibly secondary to passage of bile duct stone 3. COPD exacerbation 4. Cholelithiasis Plan: Off antibiotics, overall improving, continue present care, follow recommendations of consultants NANI IGLESIAS Problems: Consultation Date/Type/Reason Admit Date/Time May 30, 2017 at 22:37 Initial Consult Date 05/31/17 Type of Consultation: id Referring Provider: KULDEEP OTTO MD Exam/Review of Systems Vital Signs Vitals Vital Signs Date Time Temp Pulse Resp B/P Pulse Ox O2 Delivery O2 Flow Rate FiO2 06/08/17 14:00 98.4 98 16 129/61 96 06/08/17 13:10 21 06/06/17 22:53 Nasal Cannula 3.0 Intake and Output 06/07/17 06/07/17 06/08/17 15:00 23:00 07:00 Intake Total 1600 ml 600 ml Output Total 1200 ml Balance 400 ml 600 ml Results Result Diagram: 06/07/17 0618 06/08/17 0523 Results 24 hrs Laboratory Tests Test 06/08/17 01:13 06/08/17 05:23 06/08/17 12:00 Troponin I 0.014 0.017 0.012 Sodium Level 140 Potassium Level 3.9 Chloride Level 105 Carbon Dioxide Level 25 Anion Gap 14 Blood Urea Nitrogen 10 Creatinine 0.63 Glucose Level 139 Calcium Level 7.6 L Total Bilirubin 0.6 Direct Bilirubin 0.00 Indirect Bilirubin 0.6 Aspartate Amino Transf (AST/SGOT) 57 H Alanine Aminotransferase (ALT/SGPT) 55 Alkaline Phosphatase 83 Total Protein 5.6 L Albumin 2.5 L Globulin 3.10 Albumin/Globulin Ratio 0.80 Medications Medications Current Medications Ondansetron HCl (Zofran Inj) 4 mg Q6H PRN IV NAUSEA AND/OR VOMITING Last administered on 06/02/17 20:36; Admin Dose 4 MG; Start 05/31/17 at 00:30 Pantoprazole (Protonix Iv) 40 mg DAILY@06 IV Last administered on 06/08/17 05: 10; Admin Dose 40 MG; Start 05/31/17 at 06:00 Acetaminophen (Tylenol Tab) 650 mg Q6H PRN PO PAIN AND OR ELEVATED TEMP Last administered on 06/03/17 07:05; Admin Dose 650 MG; Start 05/31/17 at 00:30 Dorzolamide/ Timolol (Cosopt) 1 drop BID LEFT EYE Last administered on 10:37; Admin Dose 1 DROP; Start 06/01/17 at 09:00 Hydromorphone HCl (Dilaudid) 0.5 mg Q3H PRN IV PAIN Last administered on 10:22; Admin Dose 0.5 MG; Start 05/31/17 at 23:30 Latanoprost (Xalatan) 1 drop HS BOTH EYES Last administered on 06/07/17 21:13 ; Admin Dose 1 DROP; Start 06/01/17 at 21:00 Clonidine HCl 1 patch 1 patch Q7D TRANSDERM Last administered on 06/08/17 15: 03; Admin Dose 1 PATCH; Start 06/01/17 at 14:00 Potassium Chloride/Dextrose/ Sod Cl (D5-1/4ns + KCl 20 Meq) 1,000 ml @ 50 mls/ hr Q20H IV Last administered on 06/08/17 05:04; Admin Dose 50 MLS/HR; Start at 19:30 Bisacodyl (Dulcolax Supp) 10 mg DAILY PRN [place] CONSTIPATION Last administered on 06/07/17 21:13; Admin Dose 10 MG; Start 06/04/17 at 16:30 Guaifenesin/ Codeine Phosphate (Robitussin Ac Liquid Cup) 5 ml Q6H PRN PO COUGH Last administered on 06/07/17 21:12; Admin Dose 5 ML; Start 06/05/17 at 21:30 Hydralazine HCl (Apresoline) 10 mg Q4H PRN IV SBP>160; Start 06/08/17 at 17:00 DEBRA CLARK [employer] Jun 08, 2017 15:13
--- NOTE | 2017-06-08 16:39 | CONS ---
Date/Time of Note Date/Time of Note DATE: 06/08/17 TIME: 16:38 Assessment/Plan Assessment/Plan Additional Assessment/Plan 1. Acute pancreatitis most probably related to the passage of bile duct stone, much better amylase lipase completely normal 2. Hypertension 3. Kidneys stone by history 4. UTI 5. Leukocytosis which is trending down. 6. Jaundice, bilirubin trending down 7. Hyponatremia 8. Tachycardia Plan Patient's CA 199 and CEA both were within normal limit Her triglycerides level was also normal. Given the history of gallstone and mildly dilated bile duct I am more in favor of biliary pancreatitis. Correction of hyponatremia by giving patient free water Liver function needs to be monitored if bilirubin keeps going up and may need ERCP. Once pancreatitis is resolved would prefer to have cholecystectomy to prevent the second attack in the future Based on MRI and CT scan I doubt patient has autoimmune pancreatitis Advance diet Discussed with Dr. Otto patient needs cholecystectomy Consultation Date/Type/Reason Admit Date/Time May 30, 2017 at 22:37 Initial Consult Date 05/31/17 Type of Consultation: id Referring Provider: KULDEEP OTTO MD 24 HR Interval Summary Constitutional: improved Exam/Review of Systems Vital Signs Vitals Vital Signs Date Time Temp Pulse Resp B/P Pulse Ox O2 Delivery O2 Flow Rate FiO2 06/08/17 14:00 98.4 98 16 129/61 96 06/08/17 13:10 21 06/06/17 22:53 Nasal Cannula 3.0 Intake and Output 06/07/17 06/07/17 06/08/17 15:00 23:00 07:00 Intake Total 1600 ml 600 ml Output Total 1200 ml Balance 400 ml 600 ml Exam Constitutional: alert, oriented, well developed Psych: nl mood/affect, no complaints Head: atraumatic, normocephalic Eyes: EOMI, PERRL, nl conjunctiva, nl lids, nl sclera ENMT: nl external ears & nose, nl lips & teeth, nl nasal mucosa & septum Neck: non-tender, supple Respiratory: clear to auscultation, normal air movement Cardiovascular: nl pulses, regular rate and rhythm Gastrointestinal: nl liver, spleen, non-tender, soft Musculoskeletal: nl extremities to inspection, nl gait and stance Extremities: normal pulses Neurological: AREA CAPTAIN II-XII intact, nl mental status, nl speech, nl strength Skin: nl turgor, No rash or lesions Lymph: nl lymph nodes Results Result Diagram: 06/07/17 0618 06/08/17 0523 Results 24 hrs Laboratory Tests Test 06/08/17 01:13 06/08/17 05:23 06/08/17 12:00 Troponin I 0.014 0.017 0.012 Sodium Level 140 Potassium Level 3.9 Chloride Level 105 Carbon Dioxide Level 25 Anion Gap 14 Blood Urea Nitrogen 10 Creatinine 0.63 Glucose Level 139 Calcium Level 7.6 L Total Bilirubin 0.6 Direct Bilirubin 0.00 Indirect Bilirubin 0.6 Aspartate Amino Transf (AST/SGOT) 57 H Alanine Aminotransferase (ALT/SGPT) 55 Alkaline Phosphatase 83 Total Protein 5.6 L Albumin 2.5 L Globulin 3.10 Albumin/Globulin Ratio 0.80 Medications Medications Current Medications Ondansetron HCl (Zofran Inj) 4 mg Q6H PRN IV NAUSEA AND/OR VOMITING Last administered on 06/02/17 20:36; Admin Dose 4 MG; Start 05/31/17 at 00:30 Pantoprazole (Protonix Iv) 40 mg DAILY@06 IV Last administered on 06/08/17 05: 10; Admin Dose 40 MG; Start 05/31/17 at 06:00 Acetaminophen (Tylenol Tab) 650 mg Q6H PRN PO PAIN AND OR ELEVATED TEMP Last administered on 06/03/17 07:05; Admin Dose 650 MG; Start 05/31/17 at 00:30 Dorzolamide/ Timolol (Cosopt) 1 drop BID LEFT EYE Last administered on 10:37; Admin Dose 1 DROP; Start 06/01/17 at 09:00 Hydromorphone HCl (Dilaudid) 0.5 mg Q3H PRN IV PAIN Last administered on 10:22; Admin Dose 0.5 MG; Start 05/31/17 at 23:30 Latanoprost (Xalatan) 1 drop HS BOTH EYES Last administered on 06/07/17 21:13 ; Admin Dose 1 DROP; Start 06/01/17 at 21:00 Clonidine HCl 1 patch 1 patch Q7D TRANSDERM Last administered on 06/08/17 15: 03; Admin Dose 1 PATCH; Start 06/01/17 at 14:00 Potassium Chloride/Dextrose/ Sod Cl (D5-1/4ns + KCl 20 Meq) 1,000 ml @ 50 mls/ hr Q20H IV Last administered on 06/08/17 05:04; Admin Dose 50 MLS/HR; Start at 19:30 Bisacodyl (Dulcolax Supp) 10 mg DAILY PRN [place] CONSTIPATION Last administered on 06/07/17 21:13; Admin Dose 10 MG; Start 06/04/17 at 16:30 Guaifenesin/ Codeine Phosphate (Robitussin Ac Liquid Cup) 5 ml Q6H PRN PO COUGH Last administered on 06/07/17 21:12; Admin Dose 5 ML; Start 06/05/17 at 21:30 Hydralazine HCl (Apresoline) 10 mg Q4H PRN IV SBP>160; Start 06/08/17 at 17:00 KILEY MATTHEW MD Jun 08, 2017 16:39
--- NOTE | 2017-06-08 16:47 | PN ---
Date/Time of Note Date/Time of Note DATE: 06/08/17 TIME: 16:45 Assessment/Plan Lines/Catheters IV Catheter Type (from Nrs): Peripheral IV Shahid in Place (from Nrs): No Assessment/Plan Chief Complaint/Hosp Course 1. Acute pancreatitis: likely 2/2 cholelithiasis; MRI abdomen: Cholelithiasis with gallbladder distension and no gallbladder wall thickening. Common bile duct dilatation without evidence of choledocholithiasis. Extensive peripancreatic edema surrounding the head and uncinate process extending into the right retroperitoneum. No evidence of organized fluid collection; repeat US : Cholelithiasis with mild extrahepatic biliary dilatation. Coarsening of the liver echotexture with morphologic changes of the liver, suggesting underlying diffuse liver disease. amylase/lipase normalized min RUQ pain continues -judicious IV fluids -pain control -abx 2 Cholelithiasis: bili improved -eventual lap amy when fully optimize 3. Leukocytosis with bandemia: likely 2/2 above; afebrile -supportive -as above 3.Hypokalemia: s/p lasix; normalized -replete -monitor for cardiac arrhythmias 4. Hypocalcemia: likely 2/2 poor nutrition; -nutrition optimization as patient condition permits -optimize lytes 5. Hypernatremia -judicious fluid management 6. Shortness of breath: fluid overload; CXR: Left ventricular enlargement with increased pulmonary vascularity suspicious for mild CHF with subsegmental atelectasis in lung bases; Small right pleural effusion; improved -diuretics -breathing tx -judicious iv fluids 7. Hyperbilirubinemia: 2/2 above; normalized -supportive -eventual lap amy Patient seen and examined in collaboration with Dr. Zohaib Gaytan Problems: Subjective 24 Hr Interval Summary Feels better. breathing easier. Still c/o pain right upper quad. +flatus, no bm , tolerating clears. No n/v/d, dysuria, sob, cough, palpitations, cp, dizziness , linder, fevers, chills. Exam/Review of Systems Vital Signs Vitals Vital Signs Date Time Temp Pulse Resp B/P Pulse Ox O2 Delivery O2 Flow Rate FiO2 06/08/17 14:00 98.4 98 16 129/61 96 06/08/17 13:10 21 06/06/17 22:53 Nasal Cannula 3.0 Intake and Output 706/07/17 06/08/17 15:00 23:00 07:00 Intake Total 1600 ml 600 ml Output Total 1200 ml Balance 400 ml 600 ml Exam Free Text/Dictation Free Text/Dictation Constitutional: alert, oriented, well developed, diaphoretic Psych: nl mood Head: atraumatic, normocephalic Eyes: nl lids, nl sclera ENMT: No mucosa pink and moist (pink and dry) Neck: supple, jvd Respiratory: crackles; diminished at bases Cardiovascular: regular rate and rhythm, No murmurs/extra sounds Gastrointestinal: bowel sounds (x 4 quads), distended (min/mod), min rebound or guarding, min tender RUQ Genitourinary - Female: No CVA tenderness Musculoskeletal: nl extremities to inspection Extremities: normal pulses, No edema Neurological: nl mental status, nl speech, nl strength Skin: nl turgor, no discoloration Results Result Diagram: 06/07/17 0618 06/08/17 0523 DIDI MCCAIN NP Jun 08, 2017 16:47
[2017-06-08] MEDS ORDERED: hydrALAzine 20 MG INJ IV PRN (17:00)
--- NOTE | 2017-06-08 19:06 | RADRPT ---
Vent Rate: 97 bpm RR Interval: 0 msec OR Interval: 134 msec QRS Duration: 72 msec QT Interval: 358 msec QTC Interval: 454 msec P-R-T [place]: 18 - 13 - -3 degrees Normal sinus rhythm Nonspecific T wave abnormality Abnormal ECG Electronically Signed By: Berny Dorsey [id number]
[2017-06-08 19:39] VITALS: BP 133/61; RESP 18
[2017-06-08] MEDS: HYDROmorphONE 1 MG/ML SYG IV PRN (20:44)
[2017-06-08] MEDS: LATANOPROST 0.005% 2.5 ML OPH BOTH EYES SCH (20:52)
[2017-06-09] MEDS: ALBUTEROL/IPRATROPIUM (NEB) 3 ML AMP HHN SCH ×4 (01:11→20:31)
[2017-06-09] MEDS: PANTOPRAZOLE 40 MG INJ IV SCH (06:24)
[2017-06-09] MEDS: D5-0.2 NACL + KCL 20 MEQ 1,000 ML IV SCH ×2 (06:25→15:30)
[2017-06-09 07:23] VITALS: BP 140/66; RESP 18
[2017-06-09] MEDS: DORZOLAMIDE/TIMOLOL 10 ML OPH LEFT EYE SCH ×2 (08:57→21:24)
--- NOTE | 2017-06-09 12:00 | PN ---
Date/Time of Note Date/Time of Note DATE: 06/09/17 TIME: 11:59 Assessment/Plan VTE Prophylaxis VTE Prophylaxis Intervention: ambulation Lines/Catheters IV [facility] (from [facility] Peripheral IV Urinary Cath still in place: No Assessment/Plan Chief Complaint/Hosp Course 1. Acute pancreatitis. 2 Cholelithiasis 3.SIRS 3.electrolyte imbalance Problems: Assessment/Plan 1. Continue current regime 2. Cholecystectomy pending per dr Gaytan Subjective 24 Hr Interval Summary Constitutional: improved, no complaints Exam/Review of Systems Vital Signs Vitals Vital Signs Date Time Temp Pulse Resp B/P Pulse Ox O2 Delivery O2 Flow Rate FiO2 06/09/17 09:25 97 20 97 21 06/09/17 07:23 98.4 140/66 06/06/17 22:53 Nasal Cannula 3.0 Intake and Output 06/08/17 06/08/17 06/09/17 15:00 23:00 07:00 Intake Total 2020 ml 600 ml Balance 2020 ml 600 ml Exam Head: atraumatic, normocephalic Neck: supple Respiratory: clear to auscultation Cardiovascular: regular rate and rhythm Results Result Diagram: 06/07/17 0618 06/08/17 0523 Results 24 hrs Laboratory Tests Test 06/08/17 12:00 Troponin I 0.012 Medications Medications Current Medications Ondansetron HCl (Zofran Inj) 4 mg Q6H PRN IV NAUSEA AND/OR VOMITING Last administered on 06/02/17 20:36; Admin Dose 4 MG; Start 05/31/17 at 00:30 Pantoprazole (Protonix Iv) 40 mg DAILY@06 IV Last administered on 06/09/17 06: 24; Admin Dose 40 MG; Start 05/31/17 at 06:00 Acetaminophen (Tylenol Tab) 650 mg Q6H PRN PO PAIN AND OR ELEVATED TEMP Last administered on 06/03/17 07:05; Admin Dose 650 MG; Start 05/31/17 at 00:30 Dorzolamide/ Timolol (Cosopt) 1 drop BID LEFT EYE Last administered on 08:57; Admin Dose 1 DROP; Start 06/01/17 at 09:00 Hydromorphone HCl (Dilaudid) 0.5 mg Q3H PRN IV PAIN Last administered on 20:44; Admin Dose 0.5 MG; Start 05/31/17 at 23:30 Latanoprost (Xalatan) 1 drop HS BOTH EYES Last administered on 06/07/17 21:13 ; Admin Dose 1 DROP; Start 06/01/17 at 21:00 Clonidine HCl 1 patch 1 patch Q7D TRANSDERM Last administered on 06/08/17 15: 03; Admin Dose 1 PATCH; Start 06/01/17 at 14:00 Potassium Chloride/Dextrose/ Sod Cl (D5-1/4ns + KCl 20 Meq) 1,000 ml @ 50 mls/ hr Q20H IV Last administered on 06/09/17 06:25; Admin Dose 50 MLS/HR; Start at 19:30 Bisacodyl (Dulcolax Supp) 10 mg DAILY PRN [place] CONSTIPATION Last administered on 06/07/17 21:13; Admin Dose 10 MG; Start 06/04/17 at 16:30 Guaifenesin/ Codeine Phosphate (Robitussin Ac Liquid Cup) 5 ml Q6H PRN PO COUGH Last administered on 06/07/17 21:12; Admin Dose 5 ML; Start 06/05/17 at 21:30 Hydralazine HCl (Apresoline) 10 mg Q4H PRN IV SBP>160; Start 06/08/17 at 17:00 EAN INIGUEZ Jun 09, 2017 12:00
[2017-06-09 13:15] VITALS: BP 121/56; RESP 20
--- NOTE | 2017-06-09 13:33 | CONS ---
Date/Time of Note Date/Time of Note DATE: 06/09/17 TIME: 13:32 Assessment/Plan Assessment/Plan Additional Assessment/Plan 1. Acute pancreatitis most probably related to the passage of bile duct stone, much better amylase lipase completely normal 2. Hypertension 3. Kidneys stone by history 4. UTI 5. Leukocytosis which is trending down. 6. Jaundice, bilirubin trending down 7. Hyponatremia 8. Tachycardia Plan Patient's CA 199 and CEA both were within normal limit Her triglycerides level was also normal. Given the history of gallstone and mildly dilated bile duct I am more in favor of biliary pancreatitis. Correction of hyponatremia by giving patient free water Liver function needs to be monitored if bilirubin keeps going up and may need ERCP. Once pancreatitis is resolved would prefer to have cholecystectomy to prevent the second attack in the future Based on MRI and CT scan I doubt patient has autoimmune pancreatitis Advance diet Discussed with Dr. Otto patient needs cholecystectomy Consultation Date/Type/Reason Admit Date/Time May 30, 2017 at 22:37 Initial Consult Date 05/31/17 Type of Consultation: id Referring Provider: KULDEEP OTTO MD 24 HR Interval Summary Constitutional: improved, no complaints Exam/Review of Systems Vital Signs Vitals Vital Signs Date Time Temp Pulse Resp B/P Pulse Ox O2 Delivery O2 Flow Rate FiO2 06/09/17 13:15 97.5 87 20 121/56 98 06/09/17 09:25 21 06/06/17 22:53 Nasal Cannula 3.0 Intake and Output 06/08/17 06/08/17 06/09/17 15:00 23:00 07:00 Intake Total 2020 ml 600 ml Balance 2020 ml 600 ml Exam Constitutional: alert, oriented, well developed Psych: nl mood/affect, no complaints Head: atraumatic, normocephalic Eyes: EOMI, PERRL, nl conjunctiva, nl lids, nl sclera ENMT: nl external ears & nose, nl lips & teeth, nl nasal mucosa & septum Neck: non-tender, supple Respiratory: clear to auscultation, normal air movement Cardiovascular: nl pulses, regular rate and rhythm Gastrointestinal: nl liver, spleen, non-tender, soft Musculoskeletal: nl extremities to inspection, nl gait and stance Extremities: normal pulses Neurological: IT CONSULTANT II-XII intact, nl mental status, nl speech, nl strength Skin: nl turgor, No rash or lesions Lymph: nl lymph nodes Results Result Diagram: 06/07/17 0618 06/08/17 0523 Medications Medications Current Medications Ondansetron HCl (Zofran Inj) 4 mg Q6H PRN IV NAUSEA AND/OR VOMITING Last administered on 06/02/17 20:36; Admin Dose 4 MG; Start 05/31/17 at 00:30 Pantoprazole (Protonix Iv) 40 mg DAILY@06 IV Last administered on 06/09/17 06: 24; Admin Dose 40 MG; Start 05/31/17 at 06:00 Acetaminophen (Tylenol Tab) 650 mg Q6H PRN PO PAIN AND OR ELEVATED TEMP Last administered on 06/03/17 07:05; Admin Dose 650 MG; Start 05/31/17 at 00:30 Dorzolamide/ Timolol (Cosopt) 1 drop BID LEFT EYE Last administered on 08:57; Admin Dose 1 DROP; Start 06/01/17 at 09:00 Hydromorphone HCl (Dilaudid) 0.5 mg Q3H PRN IV PAIN Last administered on 20:44; Admin Dose 0.5 MG; Start 05/31/17 at 23:30 Latanoprost (Xalatan) 1 drop HS BOTH EYES Last administered on 06/07/17 21:13 ; Admin Dose 1 DROP; Start 06/01/17 at 21:00 Clonidine HCl 1 patch 1 patch Q7D TRANSDERM Last administered on 06/08/17 15: 03; Admin Dose 1 PATCH; Start 06/01/17 at 14:00 Potassium Chloride/Dextrose/ Sod Cl (D5-1/4ns + KCl 20 Meq) 1,000 ml @ 50 mls/ hr Q20H IV Last administered on 06/09/17 06:25; Admin Dose 50 MLS/HR; Start at 19:30 Bisacodyl (Dulcolax Supp) 10 mg DAILY PRN [place] CONSTIPATION Last administered on 06/07/17 21:13; Admin Dose 10 MG; Start 06/04/17 at 16:30 Guaifenesin/ Codeine Phosphate (Robitussin Ac Liquid Cup) 5 ml Q6H PRN PO COUGH Last administered on 06/07/17 21:12; Admin Dose 5 ML; Start 06/05/17 at 21:30 Hydralazine HCl (Apresoline) 10 mg Q4H PRN IV SBP>160; Start 06/08/17 at 17:00 KILEY MATTHEW MD Jun 09, 2017 13:33
--- NOTE | 2017-06-09 17:59 | CONS ---
Date/Time of Note Date/Time of Note DATE: 06/09/17 TIME: 17:56 Assessment/Plan Assessment/Plan Additional Assessment/Plan Abnormal electrocardiogram Pancreatitis Hypertension Anemia Hemodynamically stable Awaiting cholecystectomy Continue Transdermal Clonidine Consultation Date/Type/Reason Admit Date/Time May 30, 2017 at 22:37 Initial Consult Date 05/31/17 Type of Consultation: id Referring Provider: KULDEEP OTTO MD Exam/Review of Systems Vital Signs Vitals Vital Signs Date Time Temp Pulse Resp B/P Pulse Ox O2 Delivery O2 Flow Rate FiO2 06/09/17 14:36 83 18 97 21 06/09/17 13:15 97.5 121/56 06/06/17 22:53 Nasal Cannula 3.0 Intake and Output 06/08/17 06/08/17 06/09/17 15:00 23:00 07:00 Intake Total 2020 ml 600 ml Balance 2020 ml 600 ml Exam Constitutional: alert Neck: non-tender, supple Respiratory: clear to auscultation Cardiovascular: regular rate and rhythm Gastrointestinal: nl liver, spleen, non-tender, soft Extremities: normal pulses Results Result Diagram: 06/07/17 0618 06/08/17 0523 Medications Medications Current Medications Ondansetron HCl (Zofran Inj) 4 mg Q6H PRN IV NAUSEA AND/OR VOMITING Last administered on 06/02/17 20:36; Admin Dose 4 MG; Start 05/31/17 at 00:30 Pantoprazole (Protonix Iv) 40 mg DAILY@06 IV Last administered on 06/09/17 06: 24; Admin Dose 40 MG; Start 05/31/17 at 06:00 Acetaminophen (Tylenol Tab) 650 mg Q6H PRN PO PAIN AND OR ELEVATED TEMP Last administered on 06/03/17 07:05; Admin Dose 650 MG; Start 05/31/17 at 00:30 Dorzolamide/ Timolol (Cosopt) 1 drop BID LEFT EYE Last administered on 08:57; Admin Dose 1 DROP; Start 06/01/17 at 09:00 Hydromorphone HCl (Dilaudid) 0.5 mg Q3H PRN IV PAIN Last administered on 20:44; Admin Dose 0.5 MG; Start 05/31/17 at 23:30 Latanoprost (Xalatan) 1 drop HS BOTH EYES Last administered on 06/07/17 21:13 ; Admin Dose 1 DROP; Start 06/01/17 at 21:00 Clonidine HCl 1 patch 1 patch Q7D TRANSDERM Last administered on 06/08/17 15: 03; Admin Dose 1 PATCH; Start 06/01/17 at 14:00 Potassium Chloride/Dextrose/ Sod Cl (D5-1/4ns + KCl 20 Meq) 1,000 ml @ 50 mls/ hr Q20H IV Last administered on 06/09/17 06:25; Admin Dose 50 MLS/HR; Start at 19:30 Bisacodyl (Dulcolax Supp) 10 mg DAILY PRN [place] CONSTIPATION Last administered on 06/07/17 21:13; Admin Dose 10 MG; Start 06/04/17 at 16:30 Guaifenesin/ Codeine Phosphate (Robitussin Ac Liquid Cup) 5 ml Q6H PRN PO COUGH Last administered on 06/07/17 21:12; Admin Dose 5 ML; Start 06/05/17 at 21:30 Hydralazine HCl (Apresoline) 10 mg Q4H PRN IV SBP>160; Start 06/08/17 at 17:00 LISA TRUONG M.D. Jun 09, 2017 17:59
[2017-06-09 19:56] VITALS: BP 137/60; RESP 18
--- NOTE | 2017-06-09 20:06 | PN ---
Date/Time of Note Date/Time of Note DATE: 06/09/17 TIME: 20:00 Assessment/Plan Lines/Catheters IV Catheter Type (from [facility]): Peripheral IV Shahid in Place (from [facility]): No Assessment/Plan Chief Complaint/Hosp Course 1. Acute pancreatitis: likely 2/2 cholelithiasis; MRI abdomen: Cholelithiasis with gallbladder distension and no gallbladder wall thickening. Common bile duct dilatation without evidence of choledocholithiasis. Extensive peripancreatic edema surrounding the head and uncinate process extending into the right retroperitoneum. No evidence of organized fluid collection; repeat US : Cholelithiasis with mild extrahepatic biliary dilatation. Coarsening of the liver echotexture with morphologic changes of the liver, suggesting underlying diffuse liver disease. amylase/lipase normalized. Epigastric pain/tenderness improved but persist. Leukocytosis persists. -judicious IV fluids -pain control -eventual lap amy after full medical optimization/clearence 2. Hypoalbuminemia, multifactorial -nutritional optimization 3. Leukocytosis with bandemia: likely 2/2 above; afebrile -supportive -may need to repeat imaging 3. Anemia -monitor 4. Fluid overload with pleural effusion 2nd pancreatitis and generalized inflammation -judicious fluid management -gentle diuretics -medical optimization for eventual sx 5. Hyperbilirubinemia: 2/2 above; normalized -supportive -eventual lap amy Thank you, Problems: Subjective 24 Hr Interval Summary Feels better overall. Still epigastric pain. Breathing easier. Bowel function. Tolerating diet. No n/v/d, dysuria, sob, cough, palpitations, cp, dizziness, linder, fevers, chills. Exam/Review of Systems Vital Signs Vitals Vital Signs Date Time Temp Pulse Resp B/P Pulse Ox O2 Delivery O2 Flow Rate FiO2 06/09/17 19:56 98.1 90 18 137/60 97 06/09/17 14:36 21 06/06/17 22:53 Nasal Cannula 3.0 Intake and Output 06/08/17 06/08/17 06/09/17 14:59 22:59 06:59 Intake Total 2020 ml 600 ml Balance 2020 ml 600 ml Exam Free Text/Dictation Constitutional: alert, oriented, well developed, diaphoretic Psych: nl mood Head: atraumatic, normocephalic Eyes: nl lids, nl sclera ENMT: No mucosa pink and moist (pink and dry) Neck: supple, jvd Respiratory: crackles; diminished at bases Cardiovascular: regular rate and rhythm, No murmurs/extra sounds Gastrointestinal: Distended (min/mod), No rebound or guarding, min tender epigastric Genitourinary - Female: No CVA tenderness Musculoskeletal: nl extremities to inspection Extremities: normal pulses, No edema Neurological: nl mental status, nl speech, nl strength Skin: nl turgor, no discoloration Results Result Diagram: 06/07/17 0618 06/08/[address] MD Jun 09, 2017 20:06
[2017-06-09] MEDS: LATANOPROST 0.005% 2.5 ML OPH BOTH EYES SCH (21:24)
[2017-06-09] MEDS: HYDROmorphONE 1 MG/ML SYG IV PRN (21:25)
[2017-06-10] MEDS: ALBUTEROL/IPRATROPIUM (NEB) 3 ML AMP HHN SCH ×4 (01:32→20:04)
[2017-06-10 02:00] VITALS: BP 125/66; RESP 19
[2017-06-10] MEDS: PANTOPRAZOLE 40 MG INJ IV SCH (05:47)
[2017-06-10] MEDS: D5-0.2 NACL + KCL 20 MEQ 1,000 ML IV SCH (05:47)
[2017-06-10 07:02] LABS: BASOPHIL # 0.1 10^3/ul (0.0-0.1); BASOPHILS % 0.6 % (0.0-2.0); EOSINOPHILS # 0.2 10^3/ul (0.0-0.5); EOSINOPHILS % 1.5 % (0.0-7.0); HEMATOCRIT 28.9 % (37.0-47.0); HEMOGLOBIN 9.4 g/dl (12.0-16.0); LYMPHOCYTES # 1.5 10^3/ul (0.8-2.9); LYMPHOCYTES % 12.2 % (15.0-51.0); MEAN CORPUSCULAR HEMOGLOBIN 27.4 pg (29.0-33.0); MEAN CORPUSCULAR HGB CONC 32.5 g/dl (32.0-37.0); MEAN CORPUSCULAR VOLUME 84.3 fl (82.0-101.0); MEAN PLATELET VOLUME 9.7 fl (7.4-10.4); MONOCYTE # 1.3 10^3/ul (0.3-0.9); MONOCYTES % 10.6 % (0.0-11.0); NEUTROPHIL # 8.6 10^3/ul (1.6-7.5); NEUTROPHILS % 72.2 % (39.0-77.0); PLATELET COUNT 379 10^3/UL (140-415); RED BLOOD COUNT 3.43 10^6/ul (4.20-5.40); RED CELL DISTRIBUTION WIDTH 13.9 % (11.5-14.5); WHITE BLOOD COUNT 11.9 10^3/ul (4.8-10.8)
[2017-06-10 07:32] LABS: CREATININE 0.61 mg/dl (0.44-1.00); POTASSIUM 4.2 mmol/L (3.5-5.1)
[2017-06-10 07:35] VITALS: BP 129/58; RESP 20
[2017-06-10] MEDS: DORZOLAMIDE/TIMOLOL 10 ML OPH LEFT EYE SCH ×2 (09:48→20:34)
--- NOTE | 2017-06-10 12:44 | PN ---
Date/Time of Note Date/Time of Note DATE: 06/10/17 TIME: 12:42 Assessment/Plan VTE Prophylaxis VTE Prophylaxis Intervention: ambulation Lines/Catheters IV Catheter Type (from [facility]): Peripheral IV Urinary Cath still in place: No Assessment/Plan Chief Complaint/Hosp Course 1. Acute pancreatitis. 2 Cholelithiasis 3.SIRS 3.electrolyte imbalance Problems: Assessment/Plan 1. Continue current regime 2. Pain control Subjective 24 Hr Interval Summary Constitutional: no complaints Gastrointestinal: decreased appetite, nausea, pain Genitourinary: no complaints Exam/Review of Systems Vital Signs Vitals Vital Signs Date Time Temp Pulse Resp B/P Pulse Ox O2 Delivery O2 Flow Rate FiO2 06/10/17 07:35 97.1 80 20 129/58 98 06/10/17 07:35 21 06/06/17 22:53 Nasal Cannula 3.0 Intake and Output 06/09/17 06/09/17 06/10/17 15:00 23:00 07:00 Intake Total 1460 ml 920 ml Output Total 850 ml Balance 610 ml 920 ml Exam Constitutional: alert, oriented Respiratory: clear to auscultation Cardiovascular: regular rate and rhythm Gastrointestinal: rebound or guarding (right epigastric area), soft Results Result Diagram: 06/10/17 0544 06/10/17 0544 Results 24 hrs Laboratory Tests Test 06/10/17 05:44 White Blood Count 11.9 H Red Blood Count 3.43 L Hemoglobin 9.4 L Hematocrit 28.9 L Mean Corpuscular Volume 84.3 Mean Corpuscular Hemoglobin 27.4 L Mean Corpuscular Hemoglobin Concent 32.5 Red Cell Distribution Width 13.9 Platelet Count 379 # Mean Platelet Volume 9.7 Neutrophils % 72.2 Lymphocytes % 12.2 L Monocytes % 10.6 Eosinophils % 1.5 Basophils % 0.6 Nucleated Red Blood Cells % 0.0 Neutrophils # 8.6 H Lymphocytes # 1.5 Monocytes # 1.3 H Eosinophils # 0.2 Basophils # 0.1 Nucleated Red Blood Cells # 0.0 Sodium Level 141 Potassium Level 4.2 Chloride Level 103 Carbon Dioxide Level 27 Anion Gap 15 Blood Urea Nitrogen 5 L Creatinine 0.61 Glucose Level 110 Calcium Level 8.0 L Medications Medications Current Medications Ondansetron HCl (Zofran Inj) 4 mg Q6H PRN IV NAUSEA AND/OR VOMITING Last administered on 06/02/17 20:36; Admin Dose 4 MG; Start 05/31/17 at 00:30 Pantoprazole (Protonix Iv) 40 mg DAILY@06 IV Last administered on 06/10/17 05: 47; Admin Dose 40 MG; Start 05/31/17 at 06:00 Acetaminophen (Tylenol Tab) 650 mg Q6H PRN PO PAIN AND OR ELEVATED TEMP Last administered on 06/03/17 07:05; Admin Dose 650 MG; Start 05/31/17 at 00:30 Dorzolamide/ Timolol (Cosopt) 1 drop BID LEFT EYE Last administered on 09:48; Admin Dose 1 DROP; Start 06/01/17 at 09:00 Hydromorphone HCl (Dilaudid) 0.5 mg Q3H PRN IV PAIN Last administered on 21:25; Admin Dose 0.5 MG; Start 05/31/17 at 23:30 Latanoprost (Xalatan) 1 drop HS BOTH EYES Last administered on 06/09/17 21:24 ; Admin Dose 1 DROP; Start 06/01/17 at 21:00 Clonidine HCl 1 patch 1 patch Q7D TRANSDERM Last administered on 06/08/17 15: 03; Admin Dose 1 PATCH; Start 06/01/17 at 14:00 Potassium Chloride/Dextrose/ Sod Cl (D5-1/4ns + KCl 20 Meq) 1,000 ml @ 50 mls/ hr Q20H IV Last administered on 06/10/17 05:47; Admin Dose 50 MLS/HR; Start at 19:30 Bisacodyl (Dulcolax Supp) 10 mg DAILY PRN [place] CONSTIPATION Last administered on 06/07/17 21:13; Admin Dose 10 MG; Start 06/04/17 at 16:30 Guaifenesin/ Codeine Phosphate (Robitussin Ac Liquid Cup) 5 ml Q6H PRN PO COUGH Last administered on 06/07/17 21:12; Admin Dose 5 ML; Start 06/05/17 at 21:30 Hydralazine HCl (Apresoline) 10 mg Q4H PRN IV SBP>160; Start 06/08/17 at 17:00 EAN INIGUEZ Jun 10, 2017 12:44
--- NOTE | 2017-06-10 13:27 | CONS ---
Date/Time of Note Date/Time of Note DATE: 06/10/17 TIME: 13:27 Assessment/Plan Assessment/Plan Additional Assessment/Plan 1. Acute pancreatitis most probably related to the passage of bile duct stone, much better amylase lipase completely normal 2. Hypertension 3. Kidneys stone by history 4. UTI 5. Leukocytosis which is trending down. 6. Jaundice, bilirubin trending down 7. Hyponatremia 8. Tachycardia Plan Patient's CA 199 and CEA both were within normal limit Her triglycerides level was also normal. Given the history of gallstone and mildly dilated bile duct I am more in favor of biliary pancreatitis. Correction of hyponatremia by giving patient free water Liver function needs to be monitored if bilirubin keeps going up and may need ERCP. Once pancreatitis is resolved would prefer to have cholecystectomy to prevent the second attack in the future Based on MRI and CT scan I doubt patient has autoimmune pancreatitis Advance diet Discussed with Dr. Otto patient needs cholecystectomy, patient is clinically much better Consultation Date/Type/Reason Admit Date/Time May 30, 2017 at 22:37 Initial Consult Date 05/31/17 Type of Consultation: id Referring Provider: KULDEEP OTTO MD 24 HR Interval Summary Constitutional: improved, no complaints Exam/Review of Systems Vital Signs Vitals Vital Signs Date Time Temp Pulse Resp B/P Pulse Ox O2 Delivery O2 Flow Rate FiO2 06/10/17 07:35 97.1 80 20 129/58 98 06/10/17 07:35 21 06/06/17 22:53 Nasal Cannula 3.0 Intake and Output 06/09/17 06/09/17 06/10/17 15:00 23:00 07:00 Intake Total 1460 ml 920 ml Output Total 850 ml Balance 610 ml 920 ml Exam Constitutional: alert, oriented, well developed Psych: nl mood/affect, no complaints Head: atraumatic, normocephalic Eyes: EOMI, PERRL, nl conjunctiva, nl lids, nl sclera ENMT: nl external ears & nose, nl lips & teeth, nl nasal mucosa & septum Neck: non-tender, supple Respiratory: clear to auscultation, normal air movement Cardiovascular: nl pulses, regular rate and rhythm Gastrointestinal: nl liver, spleen, non-tender, soft Musculoskeletal: nl extremities to inspection, nl gait and stance Extremities: normal pulses Neurological: CELL REPAIRER II-XII intact, nl mental status, nl speech, nl strength Skin: nl turgor, No rash or lesions Lymph: nl lymph nodes Results Result Diagram: 06/10/1744 06/10/17 0544 Results 24 hrs Laboratory Tests Test 06/10/17 05:44 White Blood Count 11.9 H Red Blood Count 3.43 L Hemoglobin 9.4 L Hematocrit 28.9 L Mean Corpuscular Volume 84.3 Mean Corpuscular Hemoglobin 27.4 L Mean Corpuscular Hemoglobin Concent 32.5 Red Cell Distribution Width 13.9 Platelet Count 379 # Mean Platelet Volume 9.7 Neutrophils % 72.2 Lymphocytes % 12.2 L Monocytes % 10.6 Eosinophils % 1.5 Basophils % 0.6 Nucleated Red Blood Cells % 0.0 Neutrophils # 8.6 H Lymphocytes # 1.5 Monocytes # 1.3 H Eosinophils # 0.2 Basophils # 0.1 Nucleated Red Blood Cells # 0.0 Sodium Level 141 Potassium Level 4.2 Chloride Level 103 Carbon Dioxide Level 27 Anion Gap 15 Blood Urea Nitrogen 5 L Creatinine 0.61 Glucose Level 110 Calcium Level 8.0 L Medications Medications Current Medications Ondansetron HCl (Zofran Inj) 4 mg Q6H PRN IV NAUSEA AND/OR VOMITING Last administered on 06/02/17 20:36; Admin Dose 4 MG; Start 05/31/17 at 00:30 Pantoprazole (Protonix Iv) 40 mg DAILY@06 IV Last administered on 06/10/17 05: 47; Admin Dose 40 MG; Start 05/31/17 at 06:00 Acetaminophen (Tylenol Tab) 650 mg Q6H PRN PO PAIN AND OR ELEVATED TEMP Last administered on 06/03/17 07:05; Admin Dose 650 MG; Start 05/31/17 at 00:30 Dorzolamide/ Timolol (Cosopt) 1 drop BID LEFT EYE Last administered on 09:48; Admin Dose 1 DROP; Start 06/01/17 at 09:00 Hydromorphone HCl (Dilaudid) 0.5 mg Q3H PRN IV PAIN Last administered on 21:25; Admin Dose 0.5 MG; Start 05/31/17 at 23:30 Latanoprost (Xalatan) 1 drop HS BOTH EYES Last administered on 06/09/17 21:24 ; Admin Dose 1 DROP; Start 06/01/17 at 21:00 Clonidine HCl 1 patch 1 patch Q7D TRANSDERM Last administered on 06/08/17 15: 03; Admin Dose 1 PATCH; Start 06/01/17 at 14:00 Potassium Chloride/Dextrose/ Sod Cl (D5-1/4ns + KCl 20 Meq) 1,000 ml @ 50 mls/ hr Q20H IV Last administered on 06/10/17 05:47; Admin Dose 50 MLS/HR; Start at 19:30 Bisacodyl (Dulcolax Supp) 10 mg DAILY PRN [place] CONSTIPATION Last administered on 06/07/17 21:13; Admin Dose 10 MG; Start 06/04/17 at 16:30 Guaifenesin/ Codeine Phosphate (Robitussin Ac Liquid Cup) 5 ml Q6H PRN PO COUGH Last administered on 06/07/17 21:12; Admin Dose 5 ML; Start 06/05/17 at 21:30 Hydralazine HCl (Apresoline) 10 mg Q4H PRN IV SBP>160; Start 06/08/17 at 17:00 KILEY MATTHEW MD Jun 10, 2017 13:27
[2017-06-10 14:17] VITALS: BP 148/65; RESP 18
--- NOTE | 2017-06-10 15:22 | CONS ---
Date/Time of Note Date/Time of Note DATE: 06/10/17 TIME: 15:22 Assessment/Plan Assessment/Plan Additional Assessment/Plan Abnormal electrocardiogram Pancreatitis Hypertension Anemia Hemodynamically stable Awaiting cholecystectomy Continue Transdermal Clonidine Consultation Date/Type/Reason Admit Date/Time May 30, 2017 at 22:37 Initial Consult Date 05/31/17 Type of Consultation: id Referring Provider: KULDEEP OTTO MD Exam/Review of Systems Vital Signs Vitals Vital Signs Date Time Temp Pulse Resp B/P Pulse Ox O2 Delivery O2 Flow Rate FiO2 06/10/17 14:31 81 16 95 21 06/10/17 14:17 98.9 148/65 06/06/17 22:53 Nasal Cannula 3.0 Intake and Output 06/09/17 06/09/17 06/10/17 15:00 23:00 07:00 Intake Total 1460 ml 920 ml Output Total 850 ml Balance 610 ml 920 ml Exam Constitutional: alert Neck: non-tender, supple Respiratory: clear to auscultation Cardiovascular: regular rate and rhythm Gastrointestinal: nl liver, spleen, non-tender, soft Extremities: normal pulses Results Result Diagram: 06/10/17 0544 06/10/17 0544 Results 24 hrs Laboratory Tests Test 06/10/17 05:44 White Blood Count 11.9 H Red Blood Count 3.43 L Hemoglobin 9.4 L Hematocrit 28.9 L Mean Corpuscular Volume 84.3 Mean Corpuscular Hemoglobin 27.4 L Mean Corpuscular Hemoglobin Concent 32.5 Red Cell Distribution Width 13.9 Platelet Count 379 # Mean Platelet Volume 9.7 Neutrophils % 72.2 Lymphocytes % 12.2 L Monocytes % 10.6 Eosinophils % 1.5 Basophils % 0.6 Nucleated Red Blood Cells % 0.0 Neutrophils # 8.6 H Lymphocytes # 1.5 Monocytes # 1.3 H Eosinophils # 0.2 Basophils # 0.1 Nucleated Red Blood Cells # 0.0 Sodium Level 141 Potassium Level 4.2 Chloride Level 103 Carbon Dioxide Level 27 Anion Gap 15 Blood Urea Nitrogen 5 L Creatinine 0.61 Glucose Level 110 Calcium Level 8.0 L Medications Medications Current Medications Ondansetron HCl (Zofran Inj) 4 mg Q6H PRN IV NAUSEA AND/OR VOMITING Last administered on 06/02/17t 20:36; Admin Dose 4 MG; Start 05/31/17 at 00:30 Pantoprazole (Protonix Iv) 40 mg DAILY@06 IV Last administered on 06/10/17 05: 47; Admin Dose 40 MG; Start 05/31/17 at 06:00 Acetaminophen (Tylenol Tab) 650 mg Q6H PRN PO PAIN AND OR ELEVATED TEMP Last administered on 06/03/17 07:05; Admin Dose 650 MG; Start 05/31/17 at 00:30 Dorzolamide/ Timolol (Cosopt) 1 drop BID LEFT EYE Last administered on 09:48; Admin Dose 1 DROP; Start 06/01/17 at 09:00 Hydromorphone HCl (Dilaudid) 0.5 mg Q3H PRN IV PAIN Last administered on 21:25; Admin Dose 0.5 MG; Start 05/31/17 at 23:30 Latanoprost (Xalatan) 1 drop HS BOTH EYES Last administered on 06/09/17 21:24 ; Admin Dose 1 DROP; Start 06/01/17 at 21:00 Clonidine HCl 1 patch 1 patch Q7D TRANSDERM Last administered on 06/08/17 15: 03; Admin Dose 1 PATCH; Start 06/01/17 at 14:00 Potassium Chloride/Dextrose/ Sod Cl (D5-1/4ns + KCl 20 Meq) 1,000 ml @ 50 mls/ hr Q20H IV Last administered on 06/10/17 05:47; Admin Dose 50 MLS/HR; Start at 19:30 Bisacodyl (Dulcolax Supp) 10 mg DAILY PRN [place] CONSTIPATION Last administered on 06/07/17 21:13; Admin Dose 10 MG; Start 06/04/17 at 16:30 Guaifenesin/ Codeine Phosphate (Robitussin Ac Liquid Cup) 5 ml Q6H PRN PO COUGH Last administered on 06/07/17 21:12; Admin Dose 5 ML; Start 06/05/17 at 21:30 Hydralazine HCl (Apresoline) 10 mg Q4H PRN IV SBP>160; Start 06/08/17 at 17:00 LISA TRUONG M.D. Jun 10, 2017 15:22
[2017-06-10 19:52] VITALS: BP 131/63; RESP 18
[2017-06-10] MEDS: LATANOPROST 0.005% 2.5 ML OPH BOTH EYES SCH (20:34)
[2017-06-10] MEDS: HYDROmorphONE 1 MG/ML SYG IV PRN (20:37)
--- NOTE | 2017-06-10 23:55 | PN ---
Date/Time of Note Date/Time of Note DATE: 06/10/17 TIME: 23:54 Assessment/Plan Lines/Catheters IV Catheter Type (from [facility]): Peripheral IV Shahid in Place (from [facility]): No Assessment/Plan Chief Complaint/Hosp Course 1. Acute pancreatitis: likely 2/2 cholelithiasis; MRI abdomen: Cholelithiasis with gallbladder distension and no gallbladder wall thickening. Common bile duct dilatation without evidence of choledocholithiasis. Extensive peripancreatic edema surrounding the head and uncinate process extending into the right retroperitoneum. No evidence of organized fluid collection; repeat US : Cholelithiasis with mild extrahepatic biliary dilatation. Coarsening of the liver echotexture with morphologic changes of the liver, suggesting underlying diffuse liver disease. amylase/lipase normalized. Epigastric pain/tenderness improved but persist. Leukocytosis persists. -judicious IV fluids -pain control -eventual lap amy after full medical optimization/clearence 2. Hypoalbuminemia, multifactorial -nutritional optimization 3. Leukocytosis with bandemia: likely 2/2 above; afebrile -supportive -may need to repeat imaging 3. Anemia -monitor 4. Fluid overload with pleural effusion 2nd pancreatitis and generalized inflammation -judicious fluid management -gentle diuretics -medical optimization for eventual sx 5. Hyperbilirubinemia: 2/2 above; normalized -supportive -eventual lap amy Thank you, Problems: Subjective 24 Hr Interval Summary Leukocytosis improving. Feels better overall. Still epigastric pain. Breathing easier. Bowel function. Tolerating diet. No n/v/d, dysuria, sob, cough, palpitations, cp, dizziness, linder, fevers, chills. Exam/Review of Systems Vital Signs Vitals Vital Signs Date Time Temp Pulse Resp B/P Pulse Ox O2 Delivery O2 Flow Rate FiO2 06/10/17 20:04 79 18 96 21 06/10/17 19:52 98.0 131/63 06/06/17 22:53 Nasal Cannula 3.0 Intake and Output 06/09/17 06/09/17 06/10/17 15:00 23:00 07:00 Intake Total 1460 ml 920 ml Output Total 850 ml Balance 610 ml 920 ml Exam Free Text/Dictation Constitutional: alert, oriented, well developed, diaphoretic Psych: nl mood Head: atraumatic, normocephalic Eyes: nl lids, nl sclera ENMT: No mucosa pink and moist (pink and dry) Neck: supple, jvd Respiratory: crackles; diminished at bases Cardiovascular: regular rate and rhythm, No murmurs/extra sounds Gastrointestinal: Distended (min/mod), No rebound or guarding, min tender epigastric Genitourinary - Female: No CVA tenderness Musculoskeletal: nl extremities to inspection Extremities: normal pulses, No edema Neurological: nl mental status, nl speech, nl strength Skin: nl turgor, no discoloration Results Result Diagram: 06/10/17 0544 06/10/[address] MD Jun 10, 2017 23:55
[2017-06-11] MEDS: D5-0.2 NACL + KCL 20 MEQ 1,000 ML IV SCH ×2 (01:23→07:30)
[2017-06-11] MEDS: ALBUTEROL/IPRATROPIUM (NEB) 3 ML AMP HHN SCH ×4 (01:42→20:30)
[2017-06-11 02:07] VITALS: BP 138/62; RESP 20
[2017-06-11] MEDS: PANTOPRAZOLE 40 MG INJ IV SCH (06:01)
[2017-06-11 07:37] VITALS: BP 131/62; RESP 18
[2017-06-11] MEDS: DORZOLAMIDE/TIMOLOL 10 ML OPH LEFT EYE SCH (09:46)
--- NOTE | 2017-06-11 10:55 | CONS ---
Date/Time of Note Date/Time of Note DATE: 06/11/17 TIME: 10:53 Assessment/Plan Assessment/Plan Chief Complaint/Hosp Course IMP: 1.pre-op for possible amy 2.abnl ecg-negative trop x 3/NL EF b y echo this admit 3.HTN 4.Pancreatitis-improving/? gallstone 5.Cholelithiasis 6. Edema Recc -Started on liquid diet -Continue clonidine TTS and continue hydralazine IVP PRN -Gentle lasix diuresis Problems: Consultation Date/Type/Reason Admit Date/Time May 30, 2017 at 22:37 Initial Consult Date 05/31/17 Type of Consultation: cardiology Reason for Consultation pre-op Referring Provider: KULDEEP OTTO MD Exam/Review of Systems Vital Signs Vitals Vital Signs Date Time Temp Pulse Resp B/P Pulse Ox O2 Delivery O2 Flow Rate FiO2 06/11/17 07:37 98.6 67 18 131/62 100 06/11/17 07:34 21 Intake and Output 06/10/17 06/10/17 06/11/17 15:00 23:00 07:00 Intake Total 1700 ml 1620 ml Output Total 2200 ml Balance 1700 ml -580 ml Exam Review of Systems: CONSTITUTIONAL: No fevers, chills. PULMONARY: No sob CARDIOVASCULAR: No chest pain/palpitations GASTROINTESTINAL: mild abd pain GENITOURINARY: No hematuria/dysuria. MUSCULOSKELETAL: No myagias/arthalgias. PSYCHIATRIC: The patient denies depression. NEUROLOGIC: No weakness Constitutional: alert Psych: no complaints Head: normocephalic ENMT: mucosa pink and moist Neck: jvd (8 cm water), supple Respiratory: clear to auscultation Cardiovascular: regular rate and rhythm Gastrointestinal: soft, tender Musculoskeletal: muscle tone (normal) Extremities: pitting pedal edema (bilateral) Results Result Diagram: 06/10/1744 06/10/1744 Medications Medications Current Medications Ondansetron HCl (Zofran Inj) 4 mg Q6H PRN IV NAUSEA AND/OR VOMITING Last administered on 06/02/17 20:36; Admin Dose 4 MG; Start 05/31/17 at 00:30 Pantoprazole (Protonix Iv) 40 mg DAILY@06 IV Last administered on 06/11/17 06: 01; Admin Dose 40 MG; Start 05/31/17 at 06:00 Acetaminophen (Tylenol Tab) 650 mg Q6H PRN PO PAIN AND OR ELEVATED TEMP Last administered on 06/03/17 07:05; Admin Dose 650 MG; Start 05/31/17 at 00:30 Dorzolamide/ Timolol (Cosopt) 1 drop BID LEFT EYE Last administered on 09:46; Admin Dose 1 DROP; Start 06/01/17 at 09:00 Hydromorphone HCl (Dilaudid) 0.5 mg Q3H PRN IV PAIN Last administered on 20:37; Admin Dose 0.5 MG; Start 05/31/17 at 23:30 Latanoprost (Xalatan) 1 drop HS BOTH EYES Last administered on 06/10/17 20:34 ; Admin Dose 1 DROP; Start 06/01/17 at 21:00 Clonidine HCl 1 patch 1 patch Q7D TRANSDERM Last administered on 06/08/17 15: 03; Admin Dose 1 PATCH; Start 06/01/17 at 14:00 Potassium Chloride/Dextrose/ Sod Cl (D5-1/4ns + KCl 20 Meq) 1,000 ml @ 50 mls/ hr Q20H IV Last administered on 06/11/17 01:23; Admin Dose 50 MLS/HR; Start at 19:30 Bisacodyl (Dulcolax Supp) 10 mg DAILY PRN [place] CONSTIPATION Last administered on 06/07/17 21:13; Admin Dose 10 MG; Start 06/04/17 at 16:30 Guaifenesin/ Codeine Phosphate (Robitussin Ac Liquid Cup) 5 ml Q6H PRN PO COUGH Last administered on 06/07/17 21:12; Admin Dose 5 ML; Start 06/05/17 at 21:30 Hydralazine HCl (Apresoline) 10 mg Q4H PRN IV SBP>160; Start 06/08/17 at 17:00 DANIELLE DELVALLE Jun 11, 2017 10:55
[2017-06-11] MEDS ORDERED: FUROSEMIDE 20 MG INJ IV ONE (11:00)
--- NOTE | 2017-06-11 11:41 | PN ---
Date/Time of Note Date/Time of Note DATE: 06/11/17 TIME: 11:34 Assessment/Plan Lines/Catheters IV Catheter Type (from [facility]): Peripheral IV Shahid in Place (from [facility]): No Assessment/Plan Chief Complaint/Hosp Course 1. Acute pancreatitis: likely 2/2 cholelithiasis; MRI abdomen: Cholelithiasis with gallbladder distension and no gallbladder wall thickening. Common bile duct dilatation without evidence of choledocholithiasis. Extensive peripancreatic edema surrounding the head and uncinate process extending into the right retroperitoneum. No evidence of organized fluid collection; repeat US : Cholelithiasis with mild extrahepatic biliary dilatation. Coarsening of the liver echotexture with morphologic changes of the liver, suggesting underlying diffuse liver disease. amylase/lipase normalized. Epigastric pain/tenderness improved but persist. Leukocytosis persists. -judicious IV fluids -pain control -lap amy 2. Hypoalbuminemia, multifactorial -nutritional optimization 3. Leukocytosis with bandemia: likely 2/2 above; improved. afebrile -supportive 3. Anemia -monitor 4. Fluid overload with pleural effusion 2nd pancreatitis and generalized inflammation -judicious fluid management -gentle diuretics -medical optimization for eventual sx 5. Hyperbilirubinemia: 2/2 above; normalized -supportive 6. Hypocalcemia with hypoalbuminemia: likely 2/2 malnutrition +/- inflammation -supportive -nutrition optimization Patient seen and examined in collaboration with Dr. Zohaib Gaytan Problems: Subjective 24 Hr Interval Summary Feeling better. Abdominal pain improved. Tolerating diet. +bowel function. No c/ o linder, dizziness, fainting, sob, cough, cp, palpitations, n/v/d, dysuria. Exam/Review of Systems Vital Signs Vitals Vital Signs Date Time Temp Pulse Resp B/P Pulse Ox O2 Delivery O2 Flow Rate FiO2 06/11/17 07:37 98.6 67 18 131/62 100 06/11/17 07:34 21 Intake and Output 06/10/17 06/10/17 06/11/17 15:00 23:00 07:00 Intake Total 1700 ml 1620 ml Output Total 2200 ml Balance 1700 ml -580 ml Exam Free Text/Dictation Constitutional: alert, oriented, well developed, diaphoretic Psych: nl mood Head: atraumatic, normocephalic Eyes: nl lids, nl sclera ENMT: No mucosa pink and moist Neck: supple, min jvd Respiratory: crackles; diminished at bases Cardiovascular: regular rate and rhythm, No murmurs/extra sounds Gastrointestinal: Distended (min/mod), No rebound or guarding, min tender epigastric Genitourinary - Female: No CVA tenderness Musculoskeletal: nl extremities to inspection Extremities: normal pulses, No edema Neurological: nl mental status, nl speech, nl strength Skin: nl turgor, no discoloration Results Result Diagram: 06/10/17 0544 06/10/17 0544 DIDI MCCAIN NP Jun 11, 2017 11:41
[2017-06-11 14:23] LABS: BASOPHILS % 0.4 % (0.0-2.0); EOSINOPHILS # 0.2 10^3/ul (0.0-0.5); EOSINOPHILS % 1.7 % (0.0-7.0); HEMOGLOBIN 9.2 g/dl (12.0-16.0); LYMPHOCYTES # 1.3 10^3/ul (0.8-2.9); MEAN CORPUSCULAR HEMOGLOBIN 27.4 pg (29.0-33.0); MEAN CORPUSCULAR HGB CONC 31.7 g/dl (32.0-37.0); MEAN CORPUSCULAR VOLUME 86.3 fl (82.0-101.0); MEAN PLATELET VOLUME 9.4 fl (7.4-10.4); MONOCYTES % 10.3 % (0.0-11.0); NEUTROPHIL # 7.2 10^3/ul (1.6-7.5); NEUTROPHILS % 71.7 % (39.0-77.0); PLATELET COUNT 462 10^3/UL (140-415); RED BLOOD COUNT 3.36 10^6/ul (4.20-5.40); RED CELL DISTRIBUTION WIDTH 13.8 % (11.5-14.5)
[2017-06-11 14:40] LABS: INR 1.1; PROTIME 14.2 Sec (12.2-14.2); PT RATIO 1.1
[2017-06-11 14:43] LABS: ALBUMIN 3.5 g/dl (3.3-4.9); ALBUMIN/GLOBULIN RATIO 0.85; BILIRUBIN,INDIRECT 0.5 mg/dl (0-1.1); BILIRUBIN,TOTAL 0.5 mg/dl (0.2-1.3); CALCIUM 8.4 mg/dl (8.4-10.2); CREATININE 0.64 mg/dl (0.44-1.00); POTASSIUM 3.8 mmol/L (3.5-5.1); TOTAL PROTEIN 7.6 g/dl (6.1-8.1)
[2017-06-11 14:55] VITALS: BP 121/77; RESP 20
--- NOTE | 2017-06-11 16:17 | CONS ---
Date/Time of Note Date/Time of Note DATE: 06/11/17 TIME: 16:16 Assessment/Plan Assessment/Plan Additional Assessment/Plan Additional Assessment/Plan 1. Acute pancreatitis most probably related to the passage of bile duct stone, much better amylase lipase completely normal 2. Hypertension 3. Kidneys stone by history 4. UTI 5. Leukocytosis which is trending down. 6. Jaundice, bilirubin trending down 7. Hyponatremia 8. Tachycardia Plan Patient's CA 199 and CEA both were within normal limit Her triglycerides level was also normal. Given the history of gallstone and mildly dilated bile duct I am more in favor of biliary pancreatitis. Correction of hyponatremia by giving patient free water Liver function needs to be monitored if bilirubin keeps going up and may need ERCP. Once pancreatitis is resolved would prefer to have cholecystectomy to prevent the second attack in the future Based on MRI and CT scan I doubt patient has autoimmune pancreatitis Advance diet Discussed with Dr. Otto patient needs cholecystectomy, patient is clinically much better Patient is scheduled for cholecystectomy tomorrow Consultation Date/Type/Reason Admit Date/Time May 30, 2017 at 22:37 Initial Consult Date 05/31/17 Type of Consultation: cardiology Referring Provider: KULDEEP OTTO MD 24 HR Interval Summary Constitutional: improved, no complaints Exam/Review of Systems Vital Signs Vitals Vital Signs Date Time Temp Pulse Resp B/P Pulse Ox O2 Delivery O2 Flow Rate FiO2 06/11/17 14:55 97.7 84 20 121/77 99 06/11/17 14:10 21 Intake and Output 06/10/17 06/10/17 06/11/17 15:00 23:00 07:00 Intake Total 1700 ml 1620 ml Output Total 2200 ml Balance 1700 ml -580 ml Exam Constitutional: alert, oriented, well developed Psych: nl mood/affect, no complaints Head: atraumatic, normocephalic Eyes: EOMI, PERRL, nl conjunctiva, nl lids, nl sclera ENMT: nl external ears & nose, nl lips & teeth, nl nasal mucosa & septum Neck: non-tender, supple Respiratory: clear to auscultation, normal air movement Cardiovascular: nl pulses, regular rate and rhythm Gastrointestinal: nl liver, spleen, non-tender, soft Musculoskeletal: nl extremities to inspection, nl gait and stance Extremities: normal pulses Neurological: CHEMIST PHARMACEUTICAL II-XII intact, nl mental status, nl speech, nl strength Skin: nl turgor, No rash or lesions Lymph: nl lymph nodes Results Result Diagram: 06/11/17 1355 06/11/17 1335 Results 24 hrs Laboratory Tests Test 06/11/17 13:35 06/11/17 13:55 06/11/17 14:04 Sodium Level 142 Potassium Level 3.8 Chloride Level 98 Carbon Dioxide Level 30 Anion Gap 18 H Blood Urea Nitrogen 4 L Creatinine 0.64 Glucose Level 133 Calcium Level 8.4 Total Bilirubin 0.5 Direct Bilirubin 0.00 Indirect Bilirubin 0.5 Aspartate Amino Transf (AST/SGOT) 51 H Alanine Aminotransferase (ALT/SGPT) 47 Alkaline Phosphatase 83 Total Protein 7.6 Albumin 3.5 Globulin 4.10 H Albumin/Globulin Ratio 0.85 White Blood Count 10.0 Red Blood Count 3.36 L Hemoglobin 9.2 L Hematocrit 29.0 L Mean Corpuscular Volume 86.3 Mean Corpuscular Hemoglobin 27.4 L Mean Corpuscular Hemoglobin Concent 31.7 L Red Cell Distribution Width 13.8 Platelet Count 462 #H Mean Platelet Volume 9.4 Neutrophils % 71.7 Lymphocytes % 13.0 L Monocytes % 10.3 Eosinophils % 1.7 Basophils % 0.4 Nucleated Red Blood Cells % 0.0 Neutrophils # 7.2 Lymphocytes # 1.3 Monocytes # 1.0 H Eosinophils # 0.2 Basophils # 0.0 Nucleated Red Blood Cells # 0.0 Prothrombin Time 14.2 Prothrombin Time Ratio 1.1 INR International Normalized Ratio 1.10 Medications Medications Current Medications Ondansetron HCl (Zofran Inj) 4 mg Q6H PRN IV NAUSEA AND/OR VOMITING Last administered on 06/02/17 20:36; Admin Dose 4 MG; Start 05/31/17 at 00:30 Pantoprazole (Protonix Iv) 40 mg DAILY@06 IV Last administered on 06/11/17 06: 01; Admin Dose 40 MG; Start 05/31/17 at 06:00 Acetaminophen (Tylenol Tab) 650 mg Q6H PRN PO PAIN AND OR ELEVATED TEMP Last administered on 06/03/17 07:05; Admin Dose 650 MG; Start 05/31/17 at 00:30 Dorzolamide/ Timolol (Cosopt) 1 drop BID LEFT EYE Last administered on 09:46; Admin Dose 1 DROP; Start 06/01/17 at 09:00 Hydromorphone HCl (Dilaudid) 0.5 mg Q3H PRN IV PAIN Last administered on 20:37; Admin Dose 0.5 MG; Start 05/31/17 at 23:30 Latanoprost (Xalatan) 1 drop HS BOTH EYES Last administered on 06/10/17 20:34 ; Admin Dose 1 DROP; Start 06/01/17 at 21:00 Clonidine HCl 1 patch 1 patch Q7D TRANSDERM Last administered on 06/08/17 15: 03; Admin Dose 1 PATCH; Start 06/01/17 at 14:00 Potassium Chloride/Dextrose/ Sod Cl (D5-1/4ns + KCl 20 Meq) 1,000 ml @ 50 mls/ hr Q20H IV Last administered on 06/11/17 01:23; Admin Dose 50 MLS/HR; Start at 19:30 Bisacodyl (Dulcolax Supp) 10 mg DAILY PRN [place] CONSTIPATION Last administered on 06/07/17 21:13; Admin Dose 10 MG; Start 06/04/17 at 16:30 Guaifenesin/ Codeine Phosphate (Robitussin Ac Liquid Cup) 5 ml Q6H PRN PO COUGH Last administered on 06/07/17 21:12; Admin Dose 5 ML; Start 06/05/17 at 21:30 Hydralazine HCl (Apresoline) 10 mg Q4H PRN IV SBP>160; Start 06/08/17 at 17:00 KILEY MATTHEW MD Jun 11, 2017 16:17
--- NOTE | 2017-06-11 18:41 | PN ---
Date/Time of Note Date/Time of Note DATE: 06/11/17 TIME: 18:41 Assessment/Plan VTE Prophylaxis VTE Prophylaxis Intervention: other Lines/Catheters IV Catheter Type (from [facility]rs): Peripheral IV Urinary Cath still in place: No Assessment/Plan Chief Complaint/Hosp Course RES FAILURE BETTER PUL EDEMA BETTER PANCREATITIS BETTER SEPSIS PLAN LASIX PRN TELE LABS PER GI SURGERY SOON Problems: Subjective 24 Hr Interval Summary Respiratory: no complaints Cardiovascular: no complaints Gastrointestinal: pain (BETTER) Exam/Review of Systems Vital Signs Vitals Vital Signs Date Time Temp Pulse Resp B/P Pulse Ox O2 Delivery O2 Flow Rate FiO2 06/11/17 14:55 97.7 84 20 121/77 99 06/11/17 14:10 21 Intake and Output 06/10/17 06/10/17 06/11/17 15:00 23:00 07:00 Intake Total 1700 ml 1620 ml Output Total 2200 ml Balance 1700 ml -580 ml Exam Neck: supple Respiratory: clear to auscultation Cardiovascular: regular rate and rhythm Gastrointestinal: bowel sounds (+), soft Results Result Diagram: 06/11/17 1355 06/11/17 1335 Results 24 hrs Laboratory Tests Test 06/11/17 13:35 06/11/17 13:55 06/11/17 14:04 Sodium Level 142 Potassium Level 3.8 Chloride Level 98 Carbon Dioxide Level 30 Anion Gap 18 H Blood Urea Nitrogen 4 L Creatinine 0.64 Glucose Level 133 Calcium Level 8.4 Total Bilirubin 0.5 Direct Bilirubin 0.00 Indirect Bilirubin 0.5 Aspartate Amino Transf (AST/SGOT) 51 H Alanine Aminotransferase (ALT/SGPT) 47 Alkaline Phosphatase 83 Total Protein 7.6 Albumin 3.5 Globulin 4.10 H Albumin/Globulin Ratio 0.85 White Blood Count 10.0 Red Blood Count 3.36 L Hemoglobin 9.2 L Hematocrit 29.0 L Mean Corpuscular Volume 86.3 Mean Corpuscular Hemoglobin 27.4 L Mean Corpuscular Hemoglobin Concent 31.7 L Red Cell Distribution Width 13.8 Platelet Count 462 #H Mean Platelet Volume 9.4 Neutrophils % 71.7 Lymphocytes % 13.0 L Monocytes % 10.3 Eosinophils % 1.7 Basophils % 0.4 Nucleated Red Blood Cells % 0.0 Neutrophils # 7.2 Lymphocytes # 1.3 Monocytes # 1.0 H Eosinophils # 0.2 Basophils # 0.0 Nucleated Red Blood Cells # 0.0 Prothrombin Time 14.2 Prothrombin Time Ratio 1.1 INR International Normalized Ratio 1.10 Medications Medications Current Medications Ondansetron HCl (Zofran Inj) 4 mg Q6H PRN IV NAUSEA AND/OR VOMITING Last administered on 06/02/17 20:36; Admin Dose 4 MG; Start 05/31/17 at 00:30 Pantoprazole (Protonix Iv) 40 mg DAILY@06 IV Last administered on 06/11/17 06: 01; Admin Dose 40 MG; Start 05/31/17 at 06:00 Acetaminophen (Tylenol Tab) 650 mg Q6H PRN PO PAIN AND OR ELEVATED TEMP Last administered on 06/03/17 07:05; Admin Dose 650 MG; Start 05/31/17 at 00:30 Dorzolamide/ Timolol (Cosopt) 1 drop BID LEFT EYE Last administered on 09:46; Admin Dose 1 DROP; Start 06/01/17 at 09:00 Hydromorphone HCl (Dilaudid) 0.5 mg Q3H PRN IV PAIN Last administered on 20:37; Admin Dose 0.5 MG; Start 05/31/17 at 23:30 Latanoprost (Xalatan) 1 drop HS BOTH EYES Last administered on 06/10/17 20:34 ; Admin Dose 1 DROP; Start 06/01/17 at 21:00 Clonidine HCl 1 patch 1 patch Q7D TRANSDERM Last administered on 06/08/17 15: 03; Admin Dose 1 PATCH; Start 06/01/17 at 14:00 Potassium Chloride/Dextrose/ Sod Cl (D5-1/4ns + KCl 20 Meq) 1,000 ml @ 50 mls/ hr Q20H IV Last administered on 06/11/17 01:23; Admin Dose 50 MLS/HR; Start at 19:30 Bisacodyl (Dulcolax Supp) 10 mg DAILY PRN [place] CONSTIPATION Last administered on 06/07/17 21:13; Admin Dose 10 MG; Start 06/04/17 at 16:30 Guaifenesin/ Codeine Phosphate (Robitussin Ac Liquid Cup) 5 ml Q6H PRN PO COUGH Last administered on 06/07/17 21:12; Admin Dose 5 ML; Start 06/05/17 at 21:30 Hydralazine HCl (Apresoline) 10 mg Q4H PRN IV SBP>160; Start 06/08/17 at 17:00 KULDEEP OTTO MD Jun 11, 2017 18:41
[2017-06-11 19:44] VITALS: BP 131/63; RESP 18
[2017-06-12] VITALS (25 sets, daily range): BP systolic 111–173; BP diastolic 46–79; PULSE 68–84; RESP 13–24
[2017-06-12] MEDS: D5-0.2 NACL + KCL 20 MEQ 1,000 ML IV SCH ×3 (00:30→23:30)
[2017-06-12] MEDS: DORZOLAMIDE/TIMOLOL 10 ML OPH LEFT EYE SCH ×3 (01:41→21:17)
[2017-06-12] MEDS: LATANOPROST 0.005% 2.5 ML OPH BOTH EYES SCH ×2 (01:44→21:27)
[2017-06-12] MEDS: ALBUTEROL/IPRATROPIUM (NEB) 3 ML AMP HHN SCH ×4 (02:22→20:25)
[2017-06-12 03:20] LABS: WHITE BLOOD COUNT 8.8 10^3/ul (4.8-10.8)
[2017-06-12 03:21] LABS: BASOPHILS % 0.5 % (0.0-2.0); EOSINOPHILS # 0.2 10^3/ul (0.0-0.5); HEMATOCRIT 24.2 % (37.0-47.0); HEMOGLOBIN 7.8 g/dl (12.0-16.0); LYMPHOCYTES # 1.6 10^3/ul (0.8-2.9); LYMPHOCYTES % 18.6 % (15.0-51.0); MEAN CORPUSCULAR HEMOGLOBIN 27.3 pg (29.0-33.0); MEAN CORPUSCULAR HGB CONC 32.2 g/dl (32.0-37.0); MEAN CORPUSCULAR VOLUME 84.6 fl (82.0-101.0); MEAN PLATELET VOLUME 9.4 fl (7.4-10.4); MONOCYTE # 0.9 10^3/ul (0.3-0.9); MONOCYTES % 9.6 % (0.0-11.0); NEUTROPHILS % 67.7 % (39.0-77.0); PLATELET COUNT 358 10^3/UL (140-415); RED BLOOD COUNT 2.86 10^6/ul (4.20-5.40); RED CELL DISTRIBUTION WIDTH 13.7 % (11.5-14.5)
[2017-06-12 03:41] LABS: INR 1.15; PROTIME 14.7 Sec (12.2-14.2); PT RATIO 1.1
[2017-06-12 03:43] LABS: ALBUMIN 2.8 g/dl (3.3-4.9); ALBUMIN/GLOBULIN RATIO 0.87; BILIRUBIN,INDIRECT 0.4 mg/dl (0-1.1); BILIRUBIN,TOTAL 0.4 mg/dl (0.2-1.3); CALCIUM 7.8 mg/dl (8.4-10.2); CREATININE 0.64 mg/dl (0.44-1.00); POTASSIUM 3.7 mmol/L (3.5-5.1)
[2017-06-12] MEDS: PANTOPRAZOLE 40 MG INJ IV SCH (05:30)
[2017-06-12] MEDS ORDERED: metroNIDAZOLE 500 MG/100 ML NS IVPB ONE (07:00)
[2017-06-12 10:58] LABS: HEMATOCRIT 25.5 % (37.0-47.0); HEMOGLOBIN 8.2 g/dl (12.0-16.0)
--- NOTE | 2017-06-12 15:06 | PN ---
Date/Time of Note Date/Time of Note DATE: 06/12/17 TIME: 15:03 Assessment/Plan Lines/Catheters IV Catheter Type (from [facility]): Peripheral IV Shhaid in Place (from [facility]): No Assessment/Plan Chief Complaint/Hosp Course 1. Acute pancreatitis: likely 2/2 cholelithiasis; MRI abdomen: Cholelithiasis with gallbladder distension and no gallbladder wall thickening. Common bile duct dilatation without evidence of choledocholithiasis. Extensive peripancreatic edema surrounding the head and uncinate process extending into the right retroperitoneum. No evidence of organized fluid collection; repeat US : Cholelithiasis with mild extrahepatic biliary dilatation. Coarsening of the liver echotexture with morphologic changes of the liver, suggesting underlying diffuse liver disease. amylase/lipase normalized. Epigastric pain/tenderness improved. Leukocytosis resolved. -judicious IV fluids -pain control -lap amy 2. Hypoalbuminemia, multifactorial -nutritional optimization 3. Leukocytosis with bandemia: Resolved -supportive -may need to repeat imaging 3. Anemia -monitor 4. Fluid overload with pleural effusion 2nd pancreatitis and generalized inflammation. Improved. -judicious fluid management -gentle diuretics -medical optimization for eventual sx 5. Hyperbilirubinemia & transaminitis. Improved -supportive -liver biopsy Thank you, Problems: Subjective 24 Hr Interval Summary Feeling better. Abdominal pain improved. Tolerating diet. +bowel function. No c/ o linder, dizziness, fainting, sob, cough, cp, palpitations, n/v/d, dysuria. Exam/Review of Systems Vital Signs Vitals Vital Signs Date Time Temp Pulse Resp B/P Pulse Ox O2 Delivery O2 Flow Rate FiO2 06/12/17 07:43 72 18 97 21 06/12/17 07:30 98.4 129/62 Intake and Output 06/11/17 06/11/17 06/12/17 15:00 23:00 07:00 Intake Total 2040 ml 1210 ml Output Total 1600 ml 1000 ml Balance 440 ml 210 ml Exam Free Text/Dictation Constitutional: alert, oriented, well developed, diaphoretic Psych: nl mood Head: atraumatic, normocephalic Eyes: nl lids, nl sclera ENMT: No mucosa pink and moist Neck: supple, min jvd Respiratory: crackles; diminished at bases Cardiovascular: regular rate and rhythm, No murmurs/extra sounds Gastrointestinal: Distended (min/mod), No rebound or guarding, min tender epigastric Genitourinary - Female: No CVA tenderness Musculoskeletal: nl extremities to inspection Extremities: normal pulses, No edema Neurological: nl mental status, nl speech, nl strength Skin: nl turgor, no discoloration Results Result Diagram: 06/12/17 1009 06/12/[address] MD Jun 12, 2017 15:06
--- NOTE | 2017-06-12 15:36 | CONS ---
Date/Time of Note Date/Time of Note DATE: 06/12/17 TIME: 15:32 Assessment/Plan Assessment/Plan Chief Complaint/Hosp Course IMP: 1.pre-op for possible amy. Ok to proceed to OR at moderate risk without further noninvasive evaluation 2.abnl ecg-negative trop x 3/NL EF b y echo this admit 3.HTN 4.Pancreatitis-improving/? gallstone 5.Cholelithiasis 6. Edema Recc -Started on diet -Continue clonidine TTS and continue hydralazine IVP PRN -Gentle lasix diuresis Problems: Consultation Date/Type/Reason Admit Date/Time May 30, 2017 at 22:37 Initial Consult Date 05/31/17 Type of Consultation: cardiology Reason for Consultation pre-op Referring Provider: KULDEEP OTTO MD Exam/Review of Systems Vital Signs Vitals Vital Signs Date Time Temp Pulse Resp B/P Pulse Ox O2 Delivery O2 Flow Rate FiO2 06/12/17 07:43 72 18 97 21 06/12/17 07:30 98.4 129/62 Intake and Output 06/11/17 06/11/17 06/12/17 15:00 23:00 07:00 Intake Total 2040 ml 1210 ml Output Total 1600 ml 1000 ml Balance 440 ml 210 ml Exam Review of Systems: CONSTITUTIONAL: No fevers, chills. PULMONARY: No sob CARDIOVASCULAR: No chest pain/palpitations GASTROINTESTINAL: No nausea/vomiting. GENITOURINARY: No hematuria/dysuria. MUSCULOSKELETAL: No myagias/arthalgias. PSYCHIATRIC: The patient denies depression. NEUROLOGIC: No weakness Constitutional: alert Psych: no complaints Head: normocephalic ENMT: mucosa pink and moist Neck: jvd (9 cm water), supple Respiratory: diminished breath sounds Cardiovascular: regular rate and rhythm Gastrointestinal: soft, tender Musculoskeletal: muscle tone (normal) Extremities: edema (none) Neurological: other (No focal deficits) Results Result Diagram: 06/12/17 1009 06/12/17 0310 Results 24 hrs Laboratory Tests Test 06/12/17 03:10 06/12/17 10:09 White Blood Count 8.8 Red Blood Count 2.86 L Hemoglobin 7.8 L 8.2 L Hematocrit 24.2 L 25.5 L Mean Corpuscular Volume 84.6 Mean Corpuscular Hemoglobin 27.3 L Mean Corpuscular Hemoglobin Concent 32.2 Red Cell Distribution Width 13.7 Platelet Count 358 # Mean Platelet Volume 9.4 Neutrophils % 67.7 Lymphocytes % 18.6 Monocytes % 9.6 Eosinophils % 2.0 Basophils % 0.5 Nucleated Red Blood Cells % 0.0 Neutrophils # 6.0 Lymphocytes # 1.6 Monocytes # 0.9 Eosinophils # 0.2 Basophils # 0.0 Nucleated Red Blood Cells # 0.0 Prothrombin Time 14.7 H Prothrombin Time Ratio 1.1 INR International Normalized Ratio 1.15 Sodium Level 143 Potassium Level 3.7 Chloride Level 104 Carbon Dioxide Level 29 Anion Gap 14 Blood Urea Nitrogen 3 L Creatinine 0.64 Glucose Level 107 Calcium Level 7.8 L Total Bilirubin 0.4 Direct Bilirubin 0.00 Indirect Bilirubin 0.4 Aspartate Amino Transf (AST/SGOT) 35 Alanine Aminotransferase (ALT/SGPT) 45 Alkaline Phosphatase 62 Total Protein 6.0 #L Albumin 2.8 L Globulin 3.20 Albumin/Globulin Ratio 0.87 Amylase Level 123 Lipase 320 H Medications Medications Current Medications Ondansetron HCl (Zofran Inj) 4 mg Q6H PRN IV NAUSEA AND/OR VOMITING Last administered on 06/02/17 20:36; Admin Dose 4 MG; Start 05/31/17 at 00:30 Pantoprazole (Protonix Iv) 40 mg DAILY@06 IV Last administered on 06/12/17 05: 30; Admin Dose 40 MG; Start 05/31/17 at 06:00 Acetaminophen (Tylenol Tab) 650 mg Q6H PRN PO PAIN AND OR ELEVATED TEMP Last administered on 06/03/17 07:05; Admin Dose 650 MG; Start 05/31/17 at 00:30 Dorzolamide/ Timolol (Cosopt) 1 drop BID LEFT EYE Last administered on 09:30; Admin Dose 1 DROP; Start 06/01/17 at 09:00 Hydromorphone HCl (Dilaudid) 0.5 mg Q3H PRN IV PAIN Last administered on 20:37; Admin Dose 0.5 MG; Start 05/31/17 at 23:30 Latanoprost (Xalatan) 1 drop HS BOTH EYES Last administered on 06/12/17 01:44 ; Admin Dose 1 DROP; Start 06/01/17 at 21:00 Clonidine HCl 1 patch 1 patch Q7D TRANSDERM Last administered on 06/08/17 15: 03; Admin Dose 1 PATCH; Start 06/01/17 at 14:00 Potassium Chloride/Dextrose/ Sod Cl (D5-1/4ns + KCl 20 Meq) 1,000 ml @ 50 mls/ hr Q20H IV Last administered on 06/12/17 00:30; Admin Dose 50 MLS/HR; Start at 19:30 Bisacodyl (Dulcolax Supp) 10 mg DAILY PRN [place] CONSTIPATION Last administered on 06/07/17 21:13; Admin Dose 10 MG; Start 06/04/17 at 16:30 Guaifenesin/ Codeine Phosphate (Robitussin Ac Liquid Cup) 5 ml Q6H PRN PO COUGH Last administered on 06/07/17 21:12; Admin Dose 5 ML; Start 06/05/17 at 21:30 Hydralazine HCl (Apresoline) 10 mg Q4H PRN IV SBP>160; Start 06/08/17 at 17:00 DANIELLE DELVALLE Jun 12, 2017 15:36
[2017-06-12] MEDS ORDERED: BUPIVACAINE 0.25%/EPI (SDV) 30 ML INJ INJ ONE (15:46)
[2017-06-12] MEDS ORDERED: LIDOCAINE 1% (MPF) 30 ML INJ INJ ONE (15:46)
[2017-06-12] MEDS ORDERED: METOCLOPRAMIDE 10 MG INJ IV PRN (16:30)
[2017-06-12] MEDS ORDERED: HYDROmorphONE (0.2 MG/ML) 10ML SYG IV PRN ×3 (16:30)
[2017-06-12] MEDS ORDERED: ONDANSETRON 4 MG INJ IV PRN (16:30)
[2017-06-12] MEDS ORDERED: HYDROCODONE/APAP (5/325) TAB PO PRN (17:30)
[2017-06-12] MEDS: ONDANSETRON 4 MG INJ IV PRN (17:33)
--- NOTE | 2017-06-12 18:20 | PN ---
Date/Time of Note Date/Time of Note DATE: 06/12/17 TIME: 18:20 Assessment/Plan VTE Prophylaxis VTE Prophylaxis Intervention: other Lines/Catheters IV Catheter Type (from Nrs): Peripheral IV Urinary Cath still in place: No Assessment/Plan Chief Complaint/Hosp Course RES FAILURE BETTER PUL EDEMA BETTER PANCREATITIS BETTER SEPSIS PLAN LASIX PRN TELE LABS PER GI SURGERY TODAY Problems: Subjective 24 Hr Interval Summary Respiratory: no complaints Cardiovascular: no complaints Gastrointestinal: no complaints Exam/Review of Systems Vital Signs Vitals Vital Signs Date Time Temp Pulse Resp B/P Pulse Ox O2 Delivery O2 Flow Rate FiO2 06/12/17 17:54 72 19 119/58 93 06/12/17 17:54 Room Air 06/12/17 17:06 99.1 06/12/17 17:03 6.0 06/12/17 07:43 21 Intake and Output 06/11/17 06/11/17 06/12/17 15:00 23:00 07:00 Intake Total 2040 ml 1810 ml Output Total 1600 ml 1000 ml Balance 440 ml 810 ml Exam Neck: supple Respiratory: clear to auscultation Cardiovascular: regular rate and rhythm Gastrointestinal: bowel sounds (+), soft Results Result Diagram: 06/12/17 1009 06/12/17 0310 Results 24 hrs Laboratory Tests Test 06/12/17 03:10 06/12/17 10:09 White Blood Count 8.8 Red Blood Count 2.86 L Hemoglobin 7.8 L 8.2 L Hematocrit 24.2 L 25.5 L Mean Corpuscular Volume 84.6 Mean Corpuscular Hemoglobin 27.3 L Mean Corpuscular Hemoglobin Concent 32.2 Red Cell Distribution Width 13.7 Platelet Count 358 # Mean Platelet Volume 9.4 Neutrophils % 67.7 Lymphocytes % 18.6 Monocytes % 9.6 Eosinophils % 2.0 Basophils % 0.5 Nucleated Red Blood Cells % 0.0 Neutrophils # 6.0 Lymphocytes # 1.6 Monocytes # 0.9 Eosinophils # 0.2 Basophils # 0.0 Nucleated Red Blood Cells # 0.0 Prothrombin Time 14.7 H Prothrombin Time Ratio 1.1 INR International Normalized Ratio 1.15 Sodium Level 143 Potassium Level 3.7 Chloride Level 104 Carbon Dioxide Level 29 Anion Gap 14 Blood Urea Nitrogen 3 L Creatinine 0.64 Glucose Level 107 Calcium Level 7.8 L Total Bilirubin 0.4 Direct Bilirubin 0.00 Indirect Bilirubin 0.4 Aspartate Amino Transf (AST/SGOT) 35 Alanine Aminotransferase (ALT/SGPT) 45 Alkaline Phosphatase 62 Total Protein 6.0 #L Albumin 2.8 L Globulin 3.20 Albumin/Globulin Ratio 0.87 Amylase Level 123 Lipase 320 H Medications Medications Current Medications Ondansetron HCl (Zofran Inj) 4 mg Q6H PRN IV NAUSEA AND/OR VOMITING Last administered on 06/12/17 17:33; Admin Dose 4 MG; Start 05/31/17 at 00:30 Pantoprazole (Protonix Iv) 40 mg DAILY@06 IV Last administered on 06/12/17 05: 30; Admin Dose 40 MG; Start 05/31/17 at 06:00 Acetaminophen (Tylenol Tab) 650 mg Q6H PRN PO PAIN AND OR ELEVATED TEMP Last administered on 06/03/17 07:05; Admin Dose 650 MG; Start 05/31/17 at 00:30 Dorzolamide/ Timolol (Cosopt) 1 drop BID LEFT EYE Last administered on 09:30; Admin Dose 1 DROP; Start 06/01/17 at 09:00 Latanoprost (Xalatan) 1 drop HS BOTH EYES Last administered on 06/12/17 01:44 ; Admin Dose 1 DROP; Start 06/01/17 at 21:00 Clonidine HCl 1 patch 1 patch Q7D TRANSDERM Last administered on 06/08/17 15: 03; Admin Dose 1 PATCH; Start 06/01/17 at 14:00 Potassium Chloride/Dextrose/ Sod Cl (D5-1/4ns + KCl 20 Meq) 1,000 ml @ 50 mls/ hr Q20H IV Last administered on 06/12/17 00:30; Admin Dose 50 MLS/HR; Start at 19:30 Bisacodyl (Dulcolax Supp) 10 mg DAILY PRN [place] CONSTIPATION Last administered on 06/07/17 21:13; Admin Dose 10 MG; Start 06/04/17 at 16:30 Guaifenesin/ Codeine Phosphate (Robitussin Ac Liquid Cup) 5 ml Q6H PRN PO COUGH Last administered on 06/07/17 21:12; Admin Dose 5 ML; Start 06/05/17 at 21:30 Hydralazine HCl (Apresoline) 10 mg Q4H PRN IV SBP>160; Start 06/08/17 at 17:00 Acetaminophen/ Hydrocodone Bitart ([place] (5/325)) 2 tab Q4H PRN PO Pain 6-10; Start 06/12/17 at 17:30 Acetaminophen/ Hydrocodone Bitart ([place] (5/325)) 1 tab Q4H PRN PO Pain 1-5; Start 06/12/17 at 17:30 Hydromorphone HCl (Dilaudid) 0.5 mg Q2H PRN IV Breakthrough PAIN; Start at 17:30 KULDEEP OTTO MD Jun 12, 2017 18:20
--- NOTE | 2017-06-12 19:31 | CONS ---
Date/Time of Note Date/Time of Note DATE: 06/12/17 TIME: 19:30 Assessment/Plan Assessment/Plan Additional Assessment/Plan 1. Acute pancreatitis most probably related to the passage of bile duct stone, much better amylase lipase completely normal 2. Hypertension 3. Kidneys stone by history 4. UTI 5. Leukocytosis which is trending down. 6. Jaundice, bilirubin trending down 7. Hyponatremia 8. Status post a cholecystomy. Plan Continue postop care Consultation Date/Type/Reason Admit Date/Time May 30, 2017 at 22:37 Initial Consult Date 05/31/17 Type of Consultation: cardiology Referring Provider: KULDEEP OTTO MD 24 HR Interval Summary Constitutional: improved Exam/Review of Systems Vital Signs Vitals Vital Signs Date Time Temp Pulse Resp B/P Pulse Ox O2 Delivery O2 Flow Rate FiO2 06/12/17 18:48 97.6 73 18 141/66 98 06/12/17 18:24 Room Air 06/12/17 17:03 6.0 06/12/17 07:43 21 Intake and Output 06/11/17 06/11/17 06/12/17 15:00 23:00 07:00 Intake Total 2040 ml 1810 ml Output Total 1600 ml 1000 ml Balance 440 ml 810 ml Exam Constitutional: alert, oriented, well developed Psych: nl mood/affect, no complaints Head: atraumatic, normocephalic Eyes: EOMI, PERRL, nl conjunctiva, nl lids, nl sclera ENMT: nl external ears & nose, nl lips & teeth, nl nasal mucosa & septum Neck: non-tender, supple Respiratory: clear to auscultation, normal air movement Cardiovascular: nl pulses, regular rate and rhythm Gastrointestinal: nl liver, spleen, non-tender, soft Musculoskeletal: nl extremities to inspection, nl gait and stance Extremities: normal pulses 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, nl mental status, nl speech, nl strength Skin: nl turgor, No rash or lesions Lymph: nl lymph nodes Results Result Diagram: 06/12/17 1009 06/12/17 0310 Results 24 hrs Laboratory Tests Test 06/12/17 03:10 06/12/17 10:09 White Blood Count 8.8 Red Blood Count 2.86 L Hemoglobin 7.8 L 8.2 L Hematocrit 24.2 L 25.5 L Mean Corpuscular Volume 84.6 Mean Corpuscular Hemoglobin 27.3 L Mean Corpuscular Hemoglobin Concent 32.2 Red Cell Distribution Width 13.7 Platelet Count 358 # Mean Platelet Volume 9.4 Neutrophils % 67.7 Lymphocytes % 18.6 Monocytes % 9.6 Eosinophils % 2.0 Basophils % 0.5 Nucleated Red Blood Cells % 0.0 Neutrophils # 6.0 Lymphocytes # 1.6 Monocytes # 0.9 Eosinophils # 0.2 Basophils # 0.0 Nucleated Red Blood Cells # 0.0 Prothrombin Time 14.7 H Prothrombin Time Ratio 1.1 INR International Normalized Ratio 1.15 Sodium Level 143 Potassium Level 3.7 Chloride Level 104 Carbon Dioxide Level 29 Anion Gap 14 Blood Urea Nitrogen 3 L Creatinine 0.64 Glucose Level 107 Calcium Level 7.8 L Total Bilirubin 0.4 Direct Bilirubin 0.00 Indirect Bilirubin 0.4 Aspartate Amino Transf (AST/SGOT) 35 Alanine Aminotransferase (ALT/SGPT) 45 Alkaline Phosphatase 62 Total Protein 6.0 #L Albumin 2.8 L Globulin 3.20 Albumin/Globulin Ratio 0.87 Amylase Level 123 Lipase 320 H Medications Medications Current Medications Ondansetron HCl (Zofran Inj) 4 mg Q6H PRN IV NAUSEA AND/OR VOMITING Last administered on 06/12/17 17:33; Admin Dose 4 MG; Start 05/31/17 at 00:30 Pantoprazole (Protonix Iv) 40 mg DAILY@06 IV Last administered on 06/12/17 05: 30; Admin Dose 40 MG; Start 05/31/17 at 06:00 Acetaminophen (Tylenol Tab) 650 mg Q6H PRN PO PAIN AND OR ELEVATED TEMP Last administered on 06/03/17 07:05; Admin Dose 650 MG; Start 05/31/17 at 00:30 Dorzolamide/ Timolol (Cosopt) 1 drop BID LEFT EYE Last administered on 09:30; Admin Dose 1 DROP; Start 06/01/17 at 09:00 Latanoprost (Xalatan) 1 drop HS BOTH EYES Last administered on 06/12/17 01:44 ; Admin Dose 1 DROP; Start 06/01/17 at 21:00 Clonidine HCl 1 patch 1 patch Q7D TRANSDERM Last administered on 06/08/17 15: 03; Admin Dose 1 PATCH; Start 06/01/17 at 14:00 Potassium Chloride/Dextrose/ Sod Cl (D5-1/4ns + KCl 20 Meq) 1,000 ml @ 50 mls/ hr Q20H IV Last administered on 06/12/17 00:30; Admin Dose 50 MLS/HR; Start at 19:30 Bisacodyl (Dulcolax Supp) 10 mg DAILY PRN [place] CONSTIPATION Last administered on 06/07/17 21:13; Admin Dose 10 MG; Start 06/04/17 at 16:30 Guaifenesin/ Codeine Phosphate (Robitussin Ac Liquid Cup) 5 ml Q6H PRN PO COUGH Last administered on 06/07/17 21:12; Admin Dose 5 ML; Start 06/05/17 at 21:30 Hydralazine HCl (Apresoline) 10 mg Q4H PRN IV SBP>160; Start 06/08/17 at 17:00 Acetaminophen/ Hydrocodone Bitart ([employer] (5/325)) 2 tab Q4H PRN PO Pain 6-10; Start 06/12/17 at 17:30 Acetaminophen/ Hydrocodone Bitart ([employer] (5/325)) 1 tab Q4H PRN PO Pain 1-5; Start 06/12/17 at 17:30 Hydromorphone HCl (Dilaudid) 0.5 mg Q2H PRN IV Breakthrough PAIN; Start at 17:30 KILEY MATTHEW MD Jun 12, 2017 19:31
[2017-06-12] MEDS: HYDROmorphONE 1 MG/ML SYG IV PRN (22:36)
[2017-06-13 01:31] VITALS: BP 135/62; RESP 18
[2017-06-13] MEDS: ALBUTEROL/IPRATROPIUM (NEB) 3 ML AMP HHN SCH ×4 (02:27→20:52)
[2017-06-13] MEDS: HYDROmorphONE 1 MG/ML SYG IV PRN ×5 (02:27→22:16)
[2017-06-13] MEDS: PANTOPRAZOLE 40 MG INJ IV SCH (06:21)
[2017-06-13 06:42] LABS: BASOPHILS % 0.5 % (0.0-2.0); EOSINOPHILS # 0.1 10^3/ul (0.0-0.5); EOSINOPHILS % 1.2 % (0.0-7.0); HEMATOCRIT 27.8 % (37.0-47.0); HEMOGLOBIN 8.7 g/dl (12.0-16.0); LYMPHOCYTES % 11.8 % (15.0-51.0); MEAN CORPUSCULAR HGB CONC 31.3 g/dl (32.0-37.0); MEAN CORPUSCULAR VOLUME 86.3 fl (82.0-101.0); MEAN PLATELET VOLUME 9.2 fl (7.4-10.4); MONOCYTE # 0.8 10^3/ul (0.3-0.9); MONOCYTES % 9.4 % (0.0-11.0); NEUTROPHIL # 6.5 10^3/ul (1.6-7.5); NEUTROPHILS % 75.9 % (39.0-77.0); PLATELET COUNT 435 10^3/UL (140-415); RED BLOOD COUNT 3.22 10^6/ul (4.20-5.40); RED CELL DISTRIBUTION WIDTH 13.6 % (11.5-14.5); WHITE BLOOD COUNT 8.6 10^3/ul (4.8-10.8)
[2017-06-13 07:02] LABS: ALBUMIN 2.8 g/dl (3.3-4.9); ALBUMIN/GLOBULIN RATIO 0.82; BILIRUBIN,INDIRECT 0.5 mg/dl (0-1.1); BILIRUBIN,TOTAL 0.5 mg/dl (0.2-1.3); CALCIUM 7.7 mg/dl (8.4-10.2); CREATININE 0.76 mg/dl (0.44-1.00); POTASSIUM 4.1 mmol/L (3.5-5.1); TOTAL PROTEIN 6.2 g/dl (6.1-8.1)
[2017-06-13 07:29] VITALS: BP 146/65; RESP 18
[2017-06-13] MEDS: DORZOLAMIDE/TIMOLOL 10 ML OPH LEFT EYE SCH ×2 (08:55→21:09)
[2017-06-13 09:12] VITALS: BP 117/68; PULSE 104
[2017-06-13 13:26] VITALS: BP 137/63; RESP 18
--- NOTE | 2017-06-13 14:11 | CONS ---
DATE OF ADMISSION: 05/30/2017 DATE OF CONSULTATION: 06/01/2017 HISTORY OF THE PRESENT ILLNESS: The patient is a 76-year-old female with a history of hypertension, admitted to the hospital for abdominal pain and emesis. The patient was originally at [facility] where she was evaluated and the diagnosis of pancreatitis was made and subsequently transferred to this facility for insurance purposes. The patient continues to have abdominal pain. No nausea, no vomiting, no GI bleeding. No chest pain or shortness of breath. PAST MEDICAL HISTORY: Hypertension. Cataract surgery, kidney stone and lose tooth. PAST SURGICAL HISTORY: Eye surgery. Kidney stone surgery and ureteroscopy. SOCIAL HISTORY: She is a . Does not smoke or drink. ALLERGIES: TO AZITHROMYCIN. REVIEW OF SYSTEMS: Negative PHYSICAL EXAMINATION: GENERAL: The patient is in mild distress secondary to pain. VITAL SIGNS: Stable. HEENT: Unremarkable. NECK: Supple. No thyromegaly. No lymphadenopathy. HEART: No murmur, gallop or click. LUNGS: Clear. ABDOMEN: Soft. Tenderness in the epigastric area. Bowel sounds good. No masses. EXTREMITIES: No edema. NEUROLOGIC: Grossly within normal limits. LABORATORY DATA: When the patient came to this facility her lipase was 2830. WBC was elevated. Now the lipase is coming down to range 1259 and amylase is 457. BNP is grossly within normal limit, except for mild elevation of BUN. WBC shows 17,000 and is no 20,000. IMPRESSION: 1. Acute pancreatitis. Mostly biliary pancreatitis. 2. Leukocytosis, secondary to pancreatitis. 3. MRI showed gallstone, but no stone in the bile duct. 4. Hypertension. PLAN: At this point will continue IV hydration. Pain management. Absolute rest to the pancreas by keeping her nothing by mouth. I have sent for CA-99 CEA to rule out malignancy in view of her age group. Also lipid panel to rule out hypertriglyceridemia. If all the work up are negative, and still we have doubt regarding etiology, then I will send for IgG for autoimmune pancreatitis. Dictated By: Akira Garcia MD /[email or web address] /Document#: [id number] CC: Jonathon Whitaker MD; Akira Garcia MD;*[facility]*
--- NOTE | 2017-06-13 14:18 | CONS ---
Date/Time of Note Date/Time of Note DATE: 06/13/17 TIME: 14:03 Assessment/Plan Assessment/Plan Chief Complaint/Hosp Course IMP: 1.pre-op for possible amy. Ok to proceed to OR at moderate risk without further noninvasive evaluation 2.abnl ecg-negative trop x 3/NL EF by echo this admit 3.HTN 4.[id number] s/p lap amy 5.Cholelithiasis 6. Edema Recc -Pain control -Continue clonidine TTS and continue hydralazine IVP PRN -Gentle lasix diuresis -follow drain output -Routine post-op care Problems: Consultation Date/Type/Reason Admit Date/Time May 30, 2017 at 22:37 Initial Consult Date 05/31/17 Type of Consultation: cardiology Reason for Consultation pre-op Referring Provider: KULDEEP OTTO MD Exam/Review of Systems Vital Signs Vitals Vital Signs Date Time Temp Pulse Resp B/P Pulse Ox O2 Delivery O2 Flow Rate FiO2 06/13/17 13:26 98.0 83 18 137/63 95 06/13/17 08:59 Nasal Cannula 2.0 06/12/17 20:27 21 Intake and Output 06/12/17 06/12/17 06/13/17 15:00 23:00 07:00 Intake Total 250 ml 0 ml 300 ml Output Total 1440 ml 1410 ml Balance 250 ml -1440 ml -1110 ml Exam Review of Systems: CONSTITUTIONAL: No fevers, chills. PULMONARY: No sob CARDIOVASCULAR: No chest pain/palpitations GASTROINTESTINAL: No nausea/vomiting. GENITOURINARY: No hematuria/dysuria. MUSCULOSKELETAL: No myagias/arthalgias. PSYCHIATRIC: The patient denies depression. NEUROLOGIC: No weakness Constitutional: alert Psych: no complaints ENMT: mucosa pink and moist Neck: jvd Respiratory: diminished breath sounds Cardiovascular: regular rate and rhythm Gastrointestinal: non-tender, soft Musculoskeletal: muscle tone Extremities: edema (none) Neurological: No other (No focal deficits) Results Result Diagram: 06/13/17 0608 06/13/17 0608 Results 24 hrs Laboratory Tests Test 06/13/17 06:08 White Blood Count 8.6 Red Blood Count 3.22 L Hemoglobin 8.7 L Hematocrit 27.8 L Mean Corpuscular Volume 86.3 Mean Corpuscular Hemoglobin 27.0 L Mean Corpuscular Hemoglobin Concent 31.3 L Red Cell Distribution Width 13.6 Platelet Count 435 #H Mean Platelet Volume 9.2 Neutrophils % 75.9 Lymphocytes % 11.8 L Monocytes % 9.4 Eosinophils % 1.2 Basophils % 0.5 Nucleated Red Blood Cells % 0.0 Neutrophils # 6.5 Lymphocytes # 1.0 Monocytes # 0.8 Eosinophils # 0.1 Basophils # 0.0 Nucleated Red Blood Cells # 0.0 Sodium Level 141 Potassium Level 4.1 Chloride Level 101 Carbon Dioxide Level 31 Anion Gap 13 Blood Urea Nitrogen 6 L Creatinine 0.76 Glucose Level 113 Calcium Level 7.7 L Total Bilirubin 0.5 Direct Bilirubin 0.00 Indirect Bilirubin 0.5 Aspartate Amino Transf (AST/SGOT) 84 H Alanine Aminotransferase (ALT/SGPT) 54 Alkaline Phosphatase 87 Total Protein 6.2 Albumin 2.8 L Globulin 3.40 H Albumin/Globulin Ratio 0.82 Medications Medications Current Medications Ondansetron HCl (Zofran Inj) 4 mg Q6H PRN IV NAUSEA AND/OR VOMITING Last administered on 06/12/17 17:33; Admin Dose 4 MG; Start 05/31/17 at 00:30 Pantoprazole (Protonix Iv) 40 mg DAILY@06 IV Last administered on 06/13/17 06: 21; Admin Dose 40 MG; Start 05/31/17 at 06:00 Acetaminophen (Tylenol Tab) 650 mg Q6H PRN PO PAIN AND OR ELEVATED TEMP Last administered on 06/03/17 07:05; Admin Dose 650 MG; Start 05/31/17 at 00:30 Dorzolamide/ Timolol (Cosopt) 1 drop BID LEFT EYE Last administered on 08:55; Admin Dose 1 DROP; Start 06/01/17 at 09:00 Latanoprost (Xalatan) 1 drop HS BOTH EYES Last administered on 06/12/17 21:27 ; Admin Dose 1 DROP; Start 06/01/17 at 21:00 Clonidine HCl 1 patch 1 patch Q7D TRANSDERM Last administered on 06/08/17 15: 03; Admin Dose 1 PATCH; Start 06/01/17 at 14:00 Potassium Chloride/Dextrose/ Sod Cl (D5-1/4ns + KCl 20 Meq) 1,000 ml @ 50 mls/ hr Q20H IV Last administered on 06/12/17 21:17; Admin Dose 50 MLS/HR; Start at 19:30 Bisacodyl (Dulcolax Supp) 10 mg DAILY PRN [place] CONSTIPATION Last administered on 06/07/17 21:13; Admin Dose 10 MG; Start 06/04/17 at 16:30 Guaifenesin/ Codeine Phosphate (Robitussin Ac Liquid Cup) 5 ml Q6H PRN PO COUGH Last administered on 06/07/17 21:12; Admin Dose 5 ML; Start 06/05/17 at 21:30 Hydralazine HCl (Apresoline) 10 mg Q4H PRN IV SBP>160; Start 06/08/17 at 17:00 Acetaminophen/ Hydrocodone Bitart ([place] (5/325)) 2 tab Q4H PRN PO Pain 6-10; Start 06/12/17 at 17:30 Acetaminophen/ Hydrocodone Bitart ([place] (5/325)) 1 tab Q4H PRN PO Pain 1-5; Start 06/12/17 at 17:30 Hydromorphone HCl (Dilaudid) 0.5 mg Q2H PRN IV Breakthrough PAIN Last administered on 06/13/17 12:10; Admin Dose 0.5 MG; Start 06/12/17 at 17:30 DANIELLE DELVALLE Jun 13, 2017 14:15
--- NOTE | 2017-06-13 15:23 | PN ---
Date/Time of Note Date/Time of Note DATE: 06/13/17 TIME: 15:07 Assessment/Plan Lines/Catheters IV Catheter Type (from [facility]): Peripheral IV Shahid in Place (from [facility]): Yes Assessment/Plan Chief Complaint/Hosp Course 1. Acute pancreatitis: likely 2/2 cholelithiasis amylase/lipase normalized. lap amy 06/12: 2. Cholelithiasis: s/p lap amy 06/12; liver biopsy sent; soledad with 140CC serosanguineous drainage -IS -AMBULATION -pain management 3. Leukocytosis with bandemia: likely 2/2 above; normalized. afebrile -supportive 3. Anemia: stable -monitor 4. Fluid overload with pleural effusion 2nd pancreatitis and generalized inflammation -judicious fluid management -gentle diuretics -medical optimization for eventual sx 5. Hyperbilirubinemia: 2/2 above; normalized -supportive 6. Hypocalcemia with hypoalbuminemia: likely 2/2 malnutrition +/- inflammation -supportive -nutrition optimization 7. Thrombocytosis: likely reactive -monitor -dvt prophylaxis 8. Hypoalbuminemia, multifactorial -nutritional optimization Patient seen and examined in collaboration with Dr. Zohaib Gaytan Problems: Subjective 24 Hr Interval Summary Abdominal pain controlled by meds. has not been out of bed. Min IS use. No bm/ flatus. tolerating liquids. No nausea/vomiting. SOLEDAD with serosanguineous drainage. No cp, palpitations, sob, cough, dysuria, fevers, chills. Exam/Review of Systems Vital Signs Vitals Vital Signs Date Time Temp Pulse Resp B/P Pulse Ox O2 Delivery O2 Flow Rate FiO2 06/13/17 14:00 88 20 96 Nasal Cannula 1.0 06/13/17 13:26 98.0 137/63 06/12/17 20:27 21 Intake and Output 06/12/17 06/12/17 06/13/17 15:00 23:00 07:00 Intake Total 250 ml 0 ml 300 ml Output Total 1440 ml 1410 ml Balance 250 ml -1440 ml -1110 ml Exam Free Text/Dictation Constitutional: alert, oriented, well developed, diaphoretic Psych: nl mood Head: atraumatic, normocephalic Eyes: nl lids, nl sclera ENMT: No mucosa pink and moist Neck: supple, min jvd Respiratory: crackles; diminished at bases Cardiovascular: regular rate and rhythm, No murmurs/extra sounds Gastrointestinal: Distended (mod), guarding, very tender, soledad with serosanguineous drainage; incision sites dry Genitourinary - Female: No CVA tenderness Musculoskeletal: nl extremities to inspection Extremities: normal pulses, No edema Neurological: nl mental status, nl speech, nl strength Skin: nl turgor, no discoloration Results Result Diagram: 06/13/17 0608 06/13/17 0608 DIDI MCCAIN NP Jun 13, 2017 15:22
[2017-06-13] MEDS: HYDROCODONE/APAP (5/325) TAB PO PRN (15:32)
[2017-06-13] MEDS ORDERED: BUPIVACAINE 0.25%/EPI (SDV) 30 ML INJ ONE (18:02)
[2017-06-13] MEDS ORDERED: MIDAZOLAM 1 MG/ML 2 ML INJ ONE (18:02)
[2017-06-13] MEDS ORDERED: ROPIVACAINE 0.5 % 30 ML VIAL ONE (18:02)
[2017-06-13] MEDS ORDERED: CEFAZOLIN 1 GM INJ ONE (18:02)
[2017-06-13] MEDS ORDERED: PROPOFOL 20 ML ONE (18:02)
[2017-06-13] MEDS ORDERED: ONDANSETRON 4 MG INJ ONE (18:02)
[2017-06-13] MEDS ORDERED: ETOMIDATE 20 MG INJ ONE (18:02)
[2017-06-13] MEDS ORDERED: NEOSTIGMINE 3 MG/3 ML SYRINGE ONE (18:02)
[2017-06-13] MEDS ORDERED: HYDROmorphONE 2 MG/ML SYG ONE (18:02)
[2017-06-13] MEDS ORDERED: METOCLOPRAMIDE 10 MG INJ ONE (18:02)
[2017-06-13] MEDS ORDERED: ROCURONIUM 50 MG INJ ONE (18:02)
[2017-06-13] MEDS ORDERED: LIDOCAINE 1% (STERILE-PAK) 30 ML INJ ONE (18:02)
[2017-06-13] MEDS ORDERED: PHENYLephrine (100 MCG/ML) 5ML SYG ONE (18:02)
[2017-06-13] MEDS ORDERED: GLYCOPYRROLATE 0.4 MG INJ ONE (18:02)
--- NOTE | 2017-06-13 18:03 | CONS ---
Date/Time of Note Date/Time of Note DATE: 06/13/17 TIME: 18:03 Assessment/Plan Assessment/Plan Additional Assessment/Plan Additional Assessment/Plan 1. Acute pancreatitis most probably related to the passage of bile duct stone, much better amylase lipase completely normal 2. Hypertension 3. Kidneys stone by history 4. UTI 5. Leukocytosis which is trending down. 6. Jaundice, bilirubin trending down 7. Hyponatremia 8. Status post a cholecystomy. Plan Continue postop care Physical therapy to assist in ambulation Consultation Date/Type/Reason Admit Date/Time May 30, 2017 at 22:37 Initial Consult Date 05/31/17 Type of Consultation: cardiology Referring Provider: KULDEEP OTTO MD 24 HR Interval Summary Free Text/Dictation Patient complains of abdominal pain unable to ambulate Exam/Review of Systems Vital Signs Vitals Vital Signs Date Time Temp Pulse Resp B/P Pulse Ox O2 Delivery O2 Flow Rate FiO2 06/13/17 18:00 1.0 06/13/17 14:00 88 20 96 Nasal Cannula 06/13/17 13:26 98.0 137/63 06/12/17 20:27 21 Intake and Output 06/12/17 06/12/17 06/13/17 15:00 23:00 07:00 Intake Total 250 ml 0 ml 300 ml Output Total 1440 ml 1410 ml Balance 250 ml -1440 ml -1110 ml Exam Constitutional: alert, oriented, well developed Psych: nl mood/affect, no complaints Head: atraumatic, normocephalic Eyes: EOMI, PERRL, nl conjunctiva, nl lids, nl sclera ENMT: nl external ears & nose, nl lips & teeth, nl nasal mucosa & septum Neck: non-tender, supple Respiratory: clear to auscultation, normal air movement Cardiovascular: nl pulses, regular rate and rhythm Gastrointestinal: nl liver, spleen, non-tender, soft Musculoskeletal: nl extremities to inspection, nl gait and stance Extremities: normal pulses Neurological: 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 intact, nl mental status, nl speech, nl strength Skin: nl turgor, No rash or lesions Lymph: nl lymph nodes Results Result Diagram: 06/13/17 0608 06/13/17 0608 Results 24 hrs Laboratory Tests Test 06/13/17 06:08 White Blood Count 8.6 Red Blood Count 3.22 L Hemoglobin 8.7 L Hematocrit 27.8 L Mean Corpuscular Volume 86.3 Mean Corpuscular Hemoglobin 27.0 L Mean Corpuscular Hemoglobin Concent 31.3 L Red Cell Distribution Width 13.6 Platelet Count 435 #H Mean Platelet Volume 9.2 Neutrophils % 75.9 Lymphocytes % 11.8 L Monocytes % 9.4 Eosinophils % 1.2 Basophils % 0.5 Nucleated Red Blood Cells % 0.0 Neutrophils # 6.5 Lymphocytes # 1.0 Monocytes # 0.8 Eosinophils # 0.1 Basophils # 0.0 Nucleated Red Blood Cells # 0.0 Sodium Level 141 Potassium Level 4.1 Chloride Level 101 Carbon Dioxide Level 31 Anion Gap 13 Blood Urea Nitrogen 6 L Creatinine 0.76 Glucose Level 113 Calcium Level 7.7 L Total Bilirubin 0.5 Direct Bilirubin 0.00 Indirect Bilirubin 0.5 Aspartate Amino Transf (AST/SGOT) 84 H Alanine Aminotransferase (ALT/SGPT) 54 Alkaline Phosphatase 87 Total Protein 6.2 Albumin 2.8 L Globulin 3.40 H Albumin/Globulin Ratio 0.82 Medications Medications Current Medications Ondansetron HCl (Zofran Inj) 4 mg Q6H PRN IV NAUSEA AND/OR VOMITING Last administered on 06/12/17 17:33; Admin Dose 4 MG; Start 05/31/17 at 00:30 Pantoprazole (Protonix Iv) 40 mg DAILY@06 IV Last administered on 06/13/17 06: 21; Admin Dose 40 MG; Start 05/31/17 at 06:00 Acetaminophen (Tylenol Tab) 650 mg Q6H PRN PO PAIN AND OR ELEVATED TEMP Last administered on 06/03/17 07:05; Admin Dose 650 MG; Start 05/31/17 at 00:30 Dorzolamide/ Timolol (Cosopt) 1 drop BID LEFT EYE Last administered on 08:55; Admin Dose 1 DROP; Start 06/01/17 at 09:00 Latanoprost (Xalatan) 1 drop HS BOTH EYES Last administered on 06/12/17 21:27 ; Admin Dose 1 DROP; Start 06/01/17 at 21:00 Clonidine HCl 1 patch 1 patch Q7D TRANSDERM Last administered on 06/08/17 15: 03; Admin Dose 1 PATCH; Start 06/01/17 at 14:00 Potassium Chloride/Dextrose/ Sod Cl (D5-1/4ns + KCl 20 Meq) 1,000 ml @ 50 mls/ hr Q20H IV Last administered on 06/12/17 21:17; Admin Dose 50 MLS/HR; Start at 19:30 Bisacodyl (Dulcolax Supp) 10 mg DAILY PRN [place] CONSTIPATION Last administered on 06/07/17 21:13; Admin Dose 10 MG; Start 06/04/17 at 16:30 Guaifenesin/ Codeine Phosphate (Robitussin Ac Liquid Cup) 5 ml Q6H PRN PO COUGH Last administered on 06/07/17 21:12; Admin Dose 5 ML; Start 06/05/17 at 21:30 Hydralazine HCl (Apresoline) 10 mg Q4H PRN IV SBP>160; Start 06/08/17 at 17:00 Acetaminophen/ Hydrocodone Bitart ([place] (5/325)) 2 tab Q4H PRN PO Pain 6-10 Last administered on 06/13/17 15:32; Admin Dose 2 TAB; Start 06/12/17 at 17:30 Acetaminophen/ Hydrocodone Bitart ([place] (5/325)) 1 tab Q4H PRN PO Pain 1-5; Start 06/12/17 at 17:30 Hydromorphone HCl (Dilaudid) 0.5 mg Q2H PRN IV Breakthrough PAIN Last administered on 06/13/17 12:10; Admin Dose 0.5 MG; Start 06/12/17 at 17:30 KILEY MATTHEW MD Jun 13, 2017 18:03
[2017-06-13] MEDS: D5-0.2 NACL + KCL 20 MEQ 1,000 ML IV SCH (18:39)
[2017-06-13 19:29] VITALS: BP 116/57; RESP 18
[2017-06-13] MEDS: LATANOPROST 0.005% 2.5 ML OPH BOTH EYES SCH (21:08)
--- NOTE | 2017-06-13 22:36 | PN ---
Date/Time of Note Date/Time of Note DATE: 06/13/17 TIME: 22:35 Assessment/Plan VTE Prophylaxis VTE Prophylaxis Intervention: other Lines/Catheters IV Catheter Type (from Nrs): Peripheral IV Urinary Cath still in place: Yes Reason Cath still needed: other (indicate) Assessment/Plan Chief Complaint/Hosp Course RES FAILURE BETTER PUL EDEMA BETTER PANCREATITIS BETTER SEPSIS PLAN LASIX PRN S/P CHOLECYSTECTOMY LABS PER GI AND SURGERY Problems: Subjective 24 Hr Interval Summary Subjective hx not possible: other (S/P CHOLECYSTECTOMY) Exam/Review of Systems Vital Signs Vitals Vital Signs Date Time Temp Pulse Resp B/P Pulse Ox O2 Delivery O2 Flow Rate FiO2 06/13/17 20:53 1.0 06/13/17 20:53 83 20 90 Nasal Cannula 21 06/13/17 19:29 98.3 116/57 Intake and Output 06/12/17 06/12/17 06/13/17 15:00 23:00 07:00 Intake Total 250 ml 0 ml 300 ml Output Total 1440 ml 1410 ml Balance 250 ml -1440 ml -1110 ml Exam Respiratory: clear to auscultation Cardiovascular: regular rate and rhythm Gastrointestinal: soft Genitourinary - Female: nl adnexae Musculoskeletal: nl extremities to inspection Extremities: normal pulses Results Result Diagram: 06/13/17 0608 06/13/17 0608 Results 24 hrs Laboratory Tests Test 06/13/17 06:08 White Blood Count 8.6 Red Blood Count 3.22 L Hemoglobin 8.7 L Hematocrit 27.8 L Mean Corpuscular Volume 86.3 Mean Corpuscular Hemoglobin 27.0 L Mean Corpuscular Hemoglobin Concent 31.3 L Red Cell Distribution Width 13.6 Platelet Count 435 #H Mean Platelet Volume 9.2 Neutrophils % 75.9 Lymphocytes % 11.8 L Monocytes % 9.4 Eosinophils % 1.2 Basophils % 0.5 Nucleated Red Blood Cells % 0.0 Neutrophils # 6.5 Lymphocytes # 1.0 Monocytes # 0.8 Eosinophils # 0.1 Basophils # 0.0 Nucleated Red Blood Cells # 0.0 Sodium Level 141 Potassium Level 4.1 Chloride Level 101 Carbon Dioxide Level 31 Anion Gap 13 Blood Urea Nitrogen 6 L Creatinine 0.76 Glucose Level 113 Calcium Level 7.7 L Total Bilirubin 0.5 Direct Bilirubin 0.00 Indirect Bilirubin 0.5 Aspartate Amino Transf (AST/SGOT) 84 H Alanine Aminotransferase (ALT/SGPT) 54 Alkaline Phosphatase 87 Total Protein 6.2 Albumin 2.8 L Globulin 3.40 H Albumin/Globulin Ratio 0.82 Medications Medications Current Medications Ondansetron HCl (Zofran Inj) 4 mg Q6H PRN IV NAUSEA AND/OR VOMITING Last administered on 06/12/17 17:33; Admin Dose 4 MG; Start 05/31/17 at 00:30 Pantoprazole (Protonix Iv) 40 mg DAILY@06 IV Last administered on 06/13/17 06: 21; Admin Dose 40 MG; Start 05/31/17 at 06:00 Acetaminophen (Tylenol Tab) 650 mg Q6H PRN PO PAIN AND OR ELEVATED TEMP Last administered on 06/03/17 07:05; Admin Dose 650 MG; Start 05/31/17 at 00:30 Dorzolamide/ Timolol (Cosopt) 1 drop BID LEFT EYE Last administered on 21:09; Admin Dose 1 DROP; Start 06/01/17 at 09:00 Latanoprost (Xalatan) 1 drop HS BOTH EYES Last administered on 06/13/17 21:08 ; Admin Dose 1 DROP; Start 06/01/17 at 21:00 Clonidine HCl 1 patch 1 patch Q7D TRANSDERM Last administered on 06/08/17 15: 03; Admin Dose 1 PATCH; Start 06/01/17 at 14:00 Potassium Chloride/Dextrose/ Sod Cl (D5-1/4ns + KCl 20 Meq) 1,000 ml @ 50 mls/ hr Q20H IV Last administered on 06/13/17 18:39; Admin Dose 50 MLS/HR; Start at 19:30 Bisacodyl (Dulcolax Supp) 10 mg DAILY PRN [place] CONSTIPATION Last administered on 06/07/17 21:13; Admin Dose 10 MG; Start 06/04/17 at 16:30 Guaifenesin/ Codeine Phosphate (Robitussin Ac Liquid Cup) 5 ml Q6H PRN PO COUGH Last administered on 06/07/17 21:12; Admin Dose 5 ML; Start 06/05/17 at 21:30 Hydralazine HCl (Apresoline) 10 mg Q4H PRN IV SBP>160; Start 7/21/17 at 17:00 Acetaminophen/ Hydrocodone Bitart ([place] (5/325)) 2 tab Q4H PRN PO Pain 6-10 Last administered on 06/13/17 15:32; Admin Dose 2 TAB; Start 06/12/17 at 17:30 Acetaminophen/ Hydrocodone Bitart ([place] (5/325)) 1 tab Q4H PRN PO Pain 1-5; Start 06/12/17 at 17:30 Hydromorphone HCl (Dilaudid) 0.5 mg Q2H PRN IV Breakthrough PAIN Last administered on 06/13/17 22:16; Admin Dose 0.5 MG; Start 06/12/17 at 17:30 KULDEEP OTTO MD Jun 13, 2017 22:36
[2017-06-14 01:45] VITALS: BP 110/56; RESP 18
[2017-06-14] MEDS: ALBUTEROL/IPRATROPIUM (NEB) 3 ML AMP HHN SCH ×4 (02:27→19:53)
[2017-06-14] MEDS: ACETAMINOPHEN 325 MG TAB PO PRN (02:33)
[2017-06-14] MEDS: PANTOPRAZOLE 40 MG INJ IV SCH (06:07)
[2017-06-14] MEDS: HYDROmorphONE 1 MG/ML SYG IV PRN ×3 (06:14→22:30)
[2017-06-14 07:07] LABS: BASOPHILS % 0.4 % (0.0-2.0); EOSINOPHILS # 0.1 10^3/ul (0.0-0.5); EOSINOPHILS % 1.2 % (0.0-7.0); HEMATOCRIT 25.2 % (37.0-47.0); HEMOGLOBIN 7.9 g/dl (12.0-16.0); LYMPHOCYTES # 1.1 10^3/ul (0.8-2.9); LYMPHOCYTES % 12.6 % (15.0-51.0); MEAN CORPUSCULAR HEMOGLOBIN 27.1 pg (29.0-33.0); MEAN CORPUSCULAR HGB CONC 31.3 g/dl (32.0-37.0); MEAN CORPUSCULAR VOLUME 86.3 fl (82.0-101.0); MEAN PLATELET VOLUME 9.1 fl (7.4-10.4); MONOCYTES % 10.8 % (0.0-11.0); NEUTROPHIL # 6.6 10^3/ul (1.6-7.5); PLATELET COUNT 387 10^3/UL (140-415); RED BLOOD COUNT 2.92 10^6/ul (4.20-5.40); RED CELL DISTRIBUTION WIDTH 13.4 % (11.5-14.5); WHITE BLOOD COUNT 8.9 10^3/ul (4.8-10.8)
[2017-06-14 07:38] LABS: ALBUMIN 2.5 g/dl (3.3-4.9); ALBUMIN/GLOBULIN RATIO 0.73; BILIRUBIN,INDIRECT 0.5 mg/dl (0-1.1); BILIRUBIN,TOTAL 0.5 mg/dl (0.2-1.3); CREATININE 0.73 mg/dl (0.44-1.00); POTASSIUM 3.9 mmol/L (3.5-5.1); TOTAL PROTEIN 5.9 g/dl (6.1-8.1)
[2017-06-14 08:03] VITALS: BP 125/68; RESP 16
[2017-06-14] MEDS: DORZOLAMIDE/TIMOLOL 10 ML OPH LEFT EYE SCH ×2 (08:35→20:51)
[2017-06-14] MEDS: HYDROCODONE/APAP (5/325) TAB PO PRN ×2 (08:36→18:29)
--- NOTE | 2017-06-14 09:45 | PN ---
Date/Time of Note Date/Time of Note DATE: 06/14/17 TIME: 09:28 Assessment/Plan Lines/Catheters IV [facility] Type (from [facility] Peripheral IV Shahid in Place (from Nrs): Yes Assessment/Plan Chief Complaint/Hosp Course 1. Acute pancreatitis: likely 2/2 cholelithiasis amylase/lipase normalized. lap amy 06/12: 2. Cholelithiasis: s/p lap amy 06/12; liver biopsy sent; soledad with 70CC serosanguineous drainage; GB path: Chronic cholecystitis with mild eosinophilic cell infiltrate -IS -increase ambulation -pain management 3. Leukocytosis with bandemia: likely 2/2 above; normalized. afebrile -supportive 3. Anemia: h/h lower; no acute bleed noted -monitor 4. Fluid overload with pleural effusion 2nd pancreatitis and generalized inflammation -judicious fluid management -gentle diuretics -medical optimization for eventual sx 5. Hyperbilirubinemia: 2/2 above; normalized -supportive 6. Hypocalcemia with hypoalbuminemia: likely 2/2 malnutrition +/- inflammation -supportive -nutrition optimization 7. Thrombocytosis: likely reactive -monitor -dvt prophylaxis 8. Hypoalbuminemia, multifactorial -nutritional optimization 9. Liver steatosis: path: Mild steatosis with subcapsular focal chronic portal inflammation and subcapsular focal portal and septal fibrosis -lifestyle modification Patient seen and examined in collaboration with Dr. Zohaib Gaytan Problems: Subjective 24 Hr Interval Summary Feeling better. Abdominal pain improved. Tolerating diet. No n/v. serous drainage in SOLEDAD. No bm/flatus. Up to chair today. No fevers, chills, linder, dizziness, cp, palpitations, diarrhea, dysuria. Exam/Review of Systems Vital Signs Vitals Vital Signs Date Time Temp Pulse Resp B/P Pulse Ox O2 Delivery O2 Flow Rate FiO2 06/14/17 08:03 98.3 78 16 125/68 92 06/14/17 02:27 1.0 06/14/17 02:27 Nasal Cannula 06/13/17 20:53 21 Intake and Output 06/13/17 06/13/17 06/14/17 15:00 23:00 07:00 Intake Total 1380 ml 940 ml Output Total 730 ml 880 ml Balance 650 ml 60 ml Exam Free Text/Dictation Constitutional: alert, oriented, well developed, diaphoretic Psych: nl mood Head: atraumatic, normocephalic Eyes: nl lids, nl sclera ENMT: No mucosa pink and moist Neck: supple, min jvd Respiratory: crackles; diminished at bases Cardiovascular: regular rate and rhythm, No murmurs/extra sounds Gastrointestinal: Distended (mod), guarding, min tender, soledad with serosanguineous drainage; incision sites dry, bowel sounds x 4 quads Genitourinary - Female: No CVA tenderness Musculoskeletal: nl extremities to inspection Extremities: normal pulses, No edema Neurological: nl mental status, nl speech, nl strength Skin: nl turgor, no discoloration Results Result Diagram: 06/14/17 0615 06/14/17 0615 DIDI MCCAIN NP Jun 14, 2017 09:40
--- NOTE | 2017-06-14 13:11 | CONS ---
Date/Time of Note Date/Time of Note DATE: 06/14/17 TIME: 13:10 Assessment/Plan Assessment/Plan Chief Complaint/Hosp Course IMP: 1.pre-op for possible amy. Ok to proceed to OR at moderate risk without further noninvasive evaluation 2.abnl ecg-negative trop x 3/NL EF by echo this admit 3.HTN 4.[id number] s/p lap amy 5.Cholelithiasis 6. Edema Recc -Pain control -Continue clonidine TTS and continue hydralazine IVP PRN -Gentle lasix diuresis -follow drain output -Routine post-op care Problems: Consultation Date/Type/Reason Admit Date/Time May 30, 2017 at 22:37 Initial Consult Date 05/31/17 Type of Consultation: cardiology Reason for Consultation preop/HTN Referring Provider: KULDEEP OTTO MD Exam/Review of Systems Vital Signs Vitals Vital Signs Date Time Temp Pulse Resp B/P Pulse Ox O2 Delivery O2 Flow Rate FiO2 06/14/17 08:03 98.3 78 16 125/68 92 06/14/17 08:00 Nasal Cannula 2.0 06/13/17 20:53 21 Intake and Output 06/13/17 06/13/17 06/14/17 15:00 23:00 07:00 Intake Total 1380 ml 940 ml Output Total 730 ml 880 ml Balance 650 ml 60 ml Exam Review of Systems: CONSTITUTIONAL: No fevers, chills. PULMONARY: No sob CARDIOVASCULAR: No chest pain/palpitations GASTROINTESTINAL: c/o abd pain GENITOURINARY: No hematuria/dysuria. MUSCULOSKELETAL: No myagias/arthalgias. PSYCHIATRIC: The patient denies depression. NEUROLOGIC: No weakness Constitutional: alert Psych: no complaints Head: normocephalic ENMT: mucosa pink and moist Neck: jvd (8-9 cm water), supple Respiratory: diminished breath sounds (at bases/B) Cardiovascular: regular rate and rhythm Gastrointestinal: non-tender, soft Musculoskeletal: muscle tone (normal) Extremities: edema (none) Neurological: other (No focal deficits) Results Result Diagram: 06/14/17 0615 06/14/17 0615 Results 24 hrs Laboratory Tests Test 06/14/17 06:15 White Blood Count 8.9 Red Blood Count 2.92 L Hemoglobin 7.9 L Hematocrit 25.2 L Mean Corpuscular Volume 86.3 Mean Corpuscular Hemoglobin 27.1 L Mean Corpuscular Hemoglobin Concent 31.3 L Red Cell Distribution Width 13.4 Platelet Count 387 Mean Platelet Volume 9.1 Neutrophils % 74.0 Lymphocytes % 12.6 L Monocytes % 10.8 Eosinophils % 1.2 Basophils % 0.4 Nucleated Red Blood Cells % 0.0 Neutrophils # 6.6 Lymphocytes # 1.1 Monocytes # 1.0 H Eosinophils # 0.1 Basophils # 0.0 Nucleated Red Blood Cells # 0.0 Sodium Level 139 Potassium Level 3.9 Chloride Level 99 Carbon Dioxide Level 30 Anion Gap 14 Blood Urea Nitrogen 7 Creatinine 0.73 Glucose Level 119 Calcium Level 8.0 L Total Bilirubin 0.5 Direct Bilirubin 0.00 Indirect Bilirubin 0.5 Aspartate Amino Transf (AST/SGOT) 48 H Alanine Aminotransferase (ALT/SGPT) 45 Alkaline Phosphatase 72 Total Protein 5.9 L Albumin 2.5 L Globulin 3.40 H Albumin/Globulin Ratio 0.73 Medications Medications Current Medications Ondansetron HCl (Zofran Inj) 4 mg Q6H PRN IV NAUSEA AND/OR VOMITING Last administered on 06/12/17 17:33; Admin Dose 4 MG; Start 05/31/17 at 00:30 Pantoprazole (Protonix Iv) 40 mg DAILY@06 IV Last administered on 06/14/17 06: 07; Admin Dose 40 MG; Start 05/31/17 at 06:00 Acetaminophen (Tylenol Tab) 650 mg Q6H PRN PO PAIN AND OR ELEVATED TEMP Last administered on 06/14/17 02:33; Admin Dose 650 MG; Start 05/31/17 at 00:30 Dorzolamide/ Timolol (Cosopt) 1 drop BID LEFT EYE Last administered on 08:35; Admin Dose 1 DROP; Start 06/01/17 at 09:00 Latanoprost (Xalatan) 1 drop HS BOTH EYES Last administered on 06/13/17 21:08 ; Admin Dose 1 DROP; Start 06/01/17 at 21:00 Clonidine HCl 1 patch 1 patch Q7D TRANSDERM Last administered on 06/08/17 15: 03; Admin Dose 1 PATCH; Start 06/01/17 at 14:00 Potassium Chloride/Dextrose/ Sod Cl (D5-1/4ns + KCl 20 Meq) 1,000 ml @ 0 mls/ hr Q20H IV Last administered on 06/13/17 18:39; Admin Dose 50 MLS/HR; Start at 19:30 Bisacodyl (Dulcolax Supp) 10 mg DAILY PRN [place] CONSTIPATION Last administered on 06/07/17 21:13; Admin Dose 10 MG; Start 06/04/17 at 16:30 Guaifenesin/ Codeine Phosphate (Robitussin Ac Liquid Cup) 5 ml Q6H PRN PO COUGH Last administered on 06/07/17 21:12; Admin Dose 5 ML; Start 06/05/17 at 21:30 Hydralazine HCl (Apresoline) 10 mg Q4H PRN IV SBP>160; Start 06/08/17 at 17:00 Acetaminophen/ Hydrocodone Bitart ([place] (5/325)) 2 tab Q4H PRN PO Pain 6-10 Last administered on 06/14/17 08:36; Admin Dose 2 TAB; Start 06/12/17 at 17:30 Acetaminophen/ Hydrocodone Bitart ([place] (5/325)) 1 tab Q4H PRN PO Pain 1-5; Start 06/12/17 at 17:30 Hydromorphone HCl (Dilaudid) 0.5 mg Q2H PRN IV Breakthrough PAIN Last administered on 06/14/17 12:52; Admin Dose 0.5 MG; Start 06/12/17 at 17:30 DANIELLE DELVALLE Jun 14, 2017 13:11
[2017-06-14 14:17] VITALS: BP 146/65; RESP 16
--- NOTE | 2017-06-14 18:36 | CONS ---
Date/Time of Note Date/Time of Note DATE: 06/14/17 TIME: 18:36 Assessment/Plan Assessment/Plan Additional Assessment/Plan Additional Assessment/Plan 1. Acute pancreatitis most probably related to the passage of bile duct stone, much better amylase lipase completely normal 2. Hypertension 3. Kidneys stone by history 4. UTI 5. Leukocytosis which is trending down. 6. Jaundice, bilirubin trending down 7. Hyponatremia 8. Status post a cholecystomy. 9. Anemia Plan Continue postop care Physical therapy to assist in ambulation Consultation Date/Type/Reason Admit Date/Time May 30, 2017 at 22:37 Initial Consult Date 05/31/17 Type of Consultation: cardiology Referring Provider: KULDEEP OTTO MD 24 HR Interval Summary Constitutional: improved, no complaints Exam/Review of Systems Vital Signs Vitals Vital Signs Date Time Temp Pulse Resp B/P Pulse Ox O2 Delivery O2 Flow Rate FiO2 06/14/17 14:17 97.7 87 16 146/65 95 06/14/17 13:37 21 06/14/17 08:00 Nasal Cannula 2.0 Intake and Output 06/13/17 06/13/17 06/14/17 15:00 23:00 07:00 Intake Total 1380 ml 940 ml Output Total 730 ml 880 ml Balance 650 ml 60 ml Exam Constitutional: alert, oriented, well developed Psych: nl mood/affect, no complaints Head: atraumatic, normocephalic Eyes: EOMI, PERRL, nl conjunctiva, nl lids, nl sclera ENMT: nl external ears & nose, nl lips & teeth, nl nasal mucosa & septum Neck: non-tender, supple Respiratory: clear to auscultation, normal air movement Cardiovascular: nl pulses, regular rate and rhythm Gastrointestinal: nl liver, spleen, non-tender, soft Musculoskeletal: nl extremities to inspection, nl gait and stance Extremities: normal pulses Neurological: [employer]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, nl mental status, nl speech, nl strength Skin: nl turgor, No rash or lesions Lymph: nl lymph nodes Results Result Diagram: 06/14/17 0615 06/14/17 0615 Results 24 hrs Laboratory Tests Test 06/14/17 06:15 White Blood Count 8.9 Red Blood Count 2.92 L Hemoglobin 7.9 L Hematocrit 25.2 L Mean Corpuscular Volume 86.3 Mean Corpuscular Hemoglobin 27.1 L Mean Corpuscular Hemoglobin Concent 31.3 L Red Cell Distribution Width 13.4 Platelet Count 387 Mean Platelet Volume 9.1 Neutrophils % 74.0 Lymphocytes % 12.6 L Monocytes % 10.8 Eosinophils % 1.2 Basophils % 0.4 Nucleated Red Blood Cells % 0.0 Neutrophils # 6.6 Lymphocytes # 1.1 Monocytes # 1.0 H Eosinophils # 0.1 Basophils # 0.0 Nucleated Red Blood Cells # 0.0 Sodium Level 139 Potassium Level 3.9 Chloride Level 99 Carbon Dioxide Level 30 Anion Gap 14 Blood Urea Nitrogen 7 Creatinine 0.73 Glucose Level 119 Calcium Level 8.0 L Total Bilirubin 0.5 Direct Bilirubin 0.00 Indirect Bilirubin 0.5 Aspartate Amino Transf (AST/SGOT) 48 H Alanine Aminotransferase (ALT/SGPT) 45 Alkaline Phosphatase 72 Total Protein 5.9 L Albumin 2.5 L Globulin 3.40 H Albumin/Globulin Ratio 0.73 Medications Medications Current Medications Ondansetron HCl (Zofran Inj) 4 mg Q6H PRN IV NAUSEA AND/OR VOMITING Last administered on 06/12/17 17:33; Admin Dose 4 MG; Start 05/31/17 at 00:30 Pantoprazole (Protonix Iv) 40 mg DAILY@06 IV Last administered on 06/14/17 06: 07; Admin Dose 40 MG; Start 05/31/17 at 06:00 Acetaminophen (Tylenol Tab) 650 mg Q6H PRN PO PAIN AND OR ELEVATED TEMP Last administered on 06/14/17 02:33; Admin Dose 650 MG; Start 05/31/17 at 00:30 Dorzolamide/ Timolol (Cosopt) 1 drop BID LEFT EYE Last administered on 08:35; Admin Dose 1 DROP; Start 06/01/17 at 09:00 Latanoprost (Xalatan) 1 drop HS BOTH EYES Last administered on 06/13/17 21:08 ; Admin Dose 1 DROP; Start 06/01/17 at 21:00 Clonidine HCl 1 patch 1 patch Q7D TRANSDERM Last administered on 06/08/17 15: 03; Admin Dose 1 PATCH; Start 06/01/17 at 14:00 Potassium Chloride/Dextrose/ Sod Cl (D5-1/4ns + KCl 20 Meq) 1,000 ml @ 0 mls/ hr Q20H IV Last administered on 06/13/17 18:39; Admin Dose 50 MLS/HR; Start at 19:30 Bisacodyl (Dulcolax Supp) 10 mg DAILY PRN [place] CONSTIPATION Last administered on 06/07/17 21:13; Admin Dose 10 MG; Start 06/04/17 at 16:30 Guaifenesin/ Codeine Phosphate (Robitussin Ac Liquid Cup) 5 ml Q6H PRN PO COUGH Last administered on 06/07/17 21:12; Admin Dose 5 ML; Start 06/05/17 at 21:30 Hydralazine HCl (Apresoline) 10 mg Q4H PRN IV SBP>160; Start 06/08/17 at 17:00 Acetaminophen/ Hydrocodone Bitart ([place] (5/325)) 2 tab Q4H PRN PO Pain 6-10 Last administered on 06/14/17 18:29; Admin Dose 2 TAB; Start 06/12/17 at 17:30 Acetaminophen/ Hydrocodone Bitart ([place] (5/325)) 1 tab Q4H PRN PO Pain 1-5; Start 06/12/17 at 17:30 Hydromorphone HCl (Dilaudid) 0.5 mg Q2H PRN IV Breakthrough PAIN Last administered on 06/14/17 12:52; Admin Dose 0.5 MG; Start 06/12/17 at 17:30 KILEY MATTHEW MD Jun 14, 2017 18:36
[2017-06-14 20:06] VITALS: BP 114/54; RESP 16
--- NOTE | 2017-06-14 20:18 | PN ---
Date/Time of Note Date/Time of Note DATE: 06/14/17 TIME: 20:17 Assessment/Plan VTE Prophylaxis VTE Prophylaxis Intervention: other Lines/Catheters IV Catheter Type (from Nrs): Peripheral IV Urinary Cath still in place: Yes Reason Cath still needed: other (indicate) Assessment/Plan Chief Complaint/Hosp Course RES FAILURE BETTER PUL EDEMA BETTER PANCREATITIS BETTER SEPSIS PLAN LASIX PRN S/P CHOLECYSTECTOMY LABS PER [facility]F SOON Problems: Subjective 24 Hr Interval Summary Subjective hx not possible: other (WEAKNESS WILL NEED SNF) Gastrointestinal: no complaints Genitourinary: no complaints Exam/Review of Systems Vital Signs Vitals Vital Signs Date Time Temp Pulse Resp B/P Pulse Ox O2 Delivery O2 Flow Rate FiO2 06/14/17 20:06 97.2 54 16 114/54 96 06/14/17 20:02 21 06/14/17 08:00 Nasal Cannula 2.0 Intake and Output 06/13/17 06/13/17 06/14/17 15:00 23:00 07:00 Intake Total 1380 ml 940 ml Output Total 730 ml 880 ml Balance 650 ml 60 ml Exam Respiratory: clear to auscultation Cardiovascular: regular rate and rhythm Gastrointestinal: bowel sounds (+), soft Extremities: edema (+) Results Result Diagram: 06/14/1715 06/14/17 0615 Results 24 hrs Laboratory Tests Test 06/14/17 06:15 White Blood Count 8.9 Red Blood Count 2.92 L Hemoglobin 7.9 L Hematocrit 25.2 L Mean Corpuscular Volume 86.3 Mean Corpuscular Hemoglobin 27.1 L Mean Corpuscular Hemoglobin Concent 31.3 L Red Cell Distribution Width 13.4 Platelet Count 387 Mean Platelet Volume 9.1 Neutrophils % 74.0 Lymphocytes % 12.6 L Monocytes % 10.8 Eosinophils % 1.2 Basophils % 0.4 Nucleated Red Blood Cells % 0.0 Neutrophils # 6.6 Lymphocytes # 1.1 Monocytes # 1.0 H Eosinophils # 0.1 Basophils # 0.0 Nucleated Red Blood Cells # 0.0 Sodium Level 139 Potassium Level 3.9 Chloride Level 99 Carbon Dioxide Level 30 Anion Gap 14 Blood Urea Nitrogen 7 Creatinine 0.73 Glucose Level 119 Calcium Level 8.0 L Total Bilirubin 0.5 Direct Bilirubin 0.00 Indirect Bilirubin 0.5 Aspartate Amino Transf (AST/SGOT) 48 H Alanine Aminotransferase (ALT/SGPT) 45 Alkaline Phosphatase 72 Total Protein 5.9 L Albumin 2.5 L Globulin 3.40 H Albumin/Globulin Ratio 0.73 Medications Medications Current Medications Ondansetron HCl (Zofran Inj) 4 mg Q6H PRN IV NAUSEA AND/OR VOMITING Last administered on 06/12/17 17:33; Admin Dose 4 MG; Start 05/31/17 at 00:30 Pantoprazole (Protonix Iv) 40 mg DAILY@06 IV Last administered on 06/14/17 06: 07; Admin Dose 40 MG; Start 05/31/17 at 06:00 Acetaminophen (Tylenol Tab) 650 mg Q6H PRN PO PAIN AND OR ELEVATED TEMP Last administered on 06/14/17 02:33; Admin Dose 650 MG; Start 05/31/17 at 00:30 Dorzolamide/ Timolol (Cosopt) 1 drop BID LEFT EYE Last administered on 08:35; Admin Dose 1 DROP; Start 06/01/17 at 09:00 Latanoprost (Xalatan) 1 drop HS BOTH EYES Last administered on 06/13/17 21:08 ; Admin Dose 1 DROP; Start 06/01/17 at 21:00 Clonidine HCl 1 patch 1 patch Q7D TRANSDERM Last administered on 06/08/17 15: 03; Admin Dose 1 PATCH; Start 06/01/17 at 14:00 Potassium Chloride/Dextrose/ Sod Cl (D5-1/4ns + KCl 20 Meq) 1,000 ml @ 0 mls/ hr Q20H IV Last administered on 06/13/17 18:39; Admin Dose 50 MLS/HR; Start at 19:30 Bisacodyl (Dulcolax Supp) 10 mg DAILY PRN [place] CONSTIPATION Last administered on 06/07/17 21:13; Admin Dose 10 MG; Start 06/04/17 at 16:30 Guaifenesin/ Codeine Phosphate (Robitussin Ac Liquid Cup) 5 ml Q6H PRN PO COUGH Last administered on 06/07/17 21:12; Admin Dose 5 ML; Start 06/05/17 at 21:30 Hydralazine HCl (Apresoline) 10 mg Q4H PRN IV SBP>160; Start 06/08/17 at 17:00 Acetaminophen/ Hydrocodone Bitart ([place] (5/325)) 2 tab Q4H PRN PO Pain 6-10 Last administered on 06/14/17 18:29; Admin Dose 2 TAB; Start 06/12/17 at 17:30 Acetaminophen/ Hydrocodone Bitart ([place] (5/325)) 1 tab Q4H PRN PO Pain 1-5; Start 06/12/17 at 17:30 Hydromorphone HCl (Dilaudid) 0.5 mg Q2H PRN IV Breakthrough PAIN Last administered on 06/14/17 12:52; Admin Dose 0.5 MG; Start 06/12/17 at 17:30 KULDEEP OTTO MD Jun 14, 2017 20:18
[2017-06-14] MEDS: LATANOPROST 0.005% 2.5 ML OPH BOTH EYES SCH (20:52)
[2017-06-15] MEDS: ALBUTEROL/IPRATROPIUM (NEB) 3 ML AMP HHN SCH ×4 (01:14→20:00)
[2017-06-15 02:00] VITALS: BP 109/54; RESP 16
[2017-06-15] MEDS: HYDROmorphONE 1 MG/ML SYG IV PRN (04:21)
[2017-06-15] MEDS: PANTOPRAZOLE 40 MG INJ IV SCH (05:38)
[2017-06-15 06:22] LABS: BASOPHILS % 0.3 % (0.0-2.0); EOSINOPHILS # 0.1 10^3/ul (0.0-0.5); EOSINOPHILS % 1.6 % (0.0-7.0); HEMATOCRIT 26.7 % (37.0-47.0); LYMPHOCYTES # 0.9 10^3/ul (0.8-2.9); LYMPHOCYTES % 10.7 % (15.0-51.0); MEAN CORPUSCULAR HEMOGLOBIN 25.9 pg (29.0-33.0); MEAN CORPUSCULAR VOLUME 86.4 fl (82.0-101.0); MEAN PLATELET VOLUME 9.5 fl (7.4-10.4); MONOCYTE # 0.8 10^3/ul (0.3-0.9); NEUTROPHIL # 6.8 10^3/ul (1.6-7.5); NEUTROPHILS % 77.6 % (39.0-77.0); PLATELET COUNT 429 10^3/UL (140-415); RED BLOOD COUNT 3.09 10^6/ul (4.20-5.40); RED CELL DISTRIBUTION WIDTH 13.6 % (11.5-14.5); WHITE BLOOD COUNT 8.7 10^3/ul (4.8-10.8)
[2017-06-15 07:17] LABS: ALBUMIN/GLOBULIN RATIO 0.88; BILIRUBIN,INDIRECT 0.4 mg/dl (0-1.1); BILIRUBIN,TOTAL 0.4 mg/dl (0.2-1.3); CALCIUM 8.1 mg/dl (8.4-10.2); CREATININE 0.77 mg/dl (0.44-1.00); POTASSIUM 4.1 mmol/L (3.5-5.1); TOTAL PROTEIN 6.4 g/dl (6.1-8.1)
[2017-06-15 07:47] VITALS: BP 138/60; RESP 16
[2017-06-15] MEDS: DORZOLAMIDE/TIMOLOL 10 ML OPH LEFT EYE SCH ×2 (08:48→21:42)
[2017-06-15] MEDS: HYDROCODONE/APAP (5/325) TAB PO PRN ×2 (08:58→16:44)
--- NOTE | 2017-06-15 10:48 | PN ---
Date/Time of Note Date/Time of Note DATE: 06/15/17 TIME: 10:46 Assessment/Plan VTE Prophylaxis VTE Prophylaxis Intervention: ambulation Lines/Catheters IV Catheter Type (from Nrs): Peripheral IV Urinary Cath still in place: Yes Reason Cath still needed: other (indicate) (will remove) Assessment/Plan Chief Complaint/Hosp Course 1. Acute pancreatitis. 2 Cholelithiasis. Sp lap cholecystectomy 3.SIRS 3.electrolyte imbalance Problems: Assessment/Plan 1. D/c IV fluids 2. Transfer to [facility] if clear with Dr Mims Subjective 24 Hr Interval Summary Constitutional: no complaints Gastrointestinal: pain Exam/Review of Systems Vital Signs Vitals Vital Signs Date Time Temp Pulse Resp B/P Pulse Ox O2 Delivery O2 Flow Rate FiO2 06/15/17 07:47 98.1 78 16 138/60 95 06/15/17 01:23 21 06/14/17 08:00 Nasal Cannula 2.0 Intake and Output 06/14/17 06/14/17 06/15/17 15:00 23:00 07:00 Intake Total 350 ml 880 ml 300 ml Output Total 30 ml 400 ml 920 ml Balance 320 ml 480 ml -620 ml Exam Constitutional: alert, oriented Respiratory: clear to auscultation Cardiovascular: regular rate and rhythm Gastrointestinal: other (JOHN minimal drain), soft Results Result Diagram: 06/15/17 0506 06/15/17 0506 Results 24 hrs Laboratory Tests Test 06/15/17 05:06 White Blood Count 8.7 Red Blood Count 3.09 L Hemoglobin 8.0 L Hematocrit 26.7 L Mean Corpuscular Volume 86.4 Mean Corpuscular Hemoglobin 25.9 L Mean Corpuscular Hemoglobin Concent 30.0 L Red Cell Distribution Width 13.6 Platelet Count 429 H Mean Platelet Volume 9.5 Neutrophils % 77.6 H Lymphocytes % 10.7 L Monocytes % 9.0 Eosinophils % 1.6 Basophils % 0.3 Nucleated Red Blood Cells % 0.0 Neutrophils # 6.8 Lymphocytes # 0.9 Monocytes # 0.8 Eosinophils # 0.1 Basophils # 0.0 Nucleated Red Blood Cells # 0.0 Sodium Level 140 Potassium Level 4.1 Chloride Level 101 Carbon Dioxide Level 28 Anion Gap 15 Blood Urea Nitrogen 8 Creatinine 0.77 Glucose Level 112 Calcium Level 8.1 L Total Bilirubin 0.4 Direct Bilirubin 0.00 Indirect Bilirubin 0.4 Aspartate Amino Transf (AST/SGOT) 38 Alanine Aminotransferase (ALT/SGPT) 39 Alkaline Phosphatase 84 Total Protein 6.4 Albumin 3.0 L Globulin 3.40 H Albumin/Globulin Ratio 0.88 Medications Medications Current Medications Ondansetron HCl (Zofran Inj) 4 mg Q6H PRN IV NAUSEA AND/OR VOMITING Last administered on 06/12/17 17:33; Admin Dose 4 MG; Start 05/31/17 at 00:30 Pantoprazole (Protonix Iv) 40 mg DAILY@06 IV Last administered on 06/15/17 05: 38; Admin Dose 40 MG; Start 05/31/17 at 06:00 Acetaminophen (Tylenol Tab) 650 mg Q6H PRN PO PAIN AND OR ELEVATED TEMP Last administered on 06/14/17 02:33; Admin Dose 650 MG; Start 05/31/17 at 00:30 Dorzolamide/ Timolol (Cosopt) 1 drop BID LEFT EYE Last administered on 08:48; Admin Dose 1 DROP; Start 06/01/17 at 09:00 Latanoprost (Xalatan) 1 drop HS BOTH EYES Last administered on 06/14/17 20:52 ; Admin Dose 1 DROP; Start 06/01/17 at 21:00 Clonidine HCl 1 patch 1 patch Q7D TRANSDERM Last administered on 06/08/17 15: 03; Admin Dose 1 PATCH; Start 06/01/17 at 14:00 Potassium Chloride/Dextrose/ Sod Cl (D5-1/4ns + KCl 20 Meq) 1,000 ml @ 0 mls/ hr Q20H IV Last administered on 06/13/17 18:39; Admin Dose 50 MLS/HR; Start at 19:30 Bisacodyl (Dulcolax Supp) 10 mg DAILY PRN [place] CONSTIPATION Last administered on 06/07/17 21:13; Admin Dose 10 MG; Start 06/04/17 at 16:30 Guaifenesin/ Codeine Phosphate (Robitussin Ac Liquid Cup) 5 ml Q6H PRN PO COUGH Last administered on 06/07/17 21:12; Admin Dose 5 ML; Start 06/05/17 at 21:30 Hydralazine HCl (Apresoline) 10 mg Q4H PRN IV SBP>160; Start 06/08/17 at 17:00 Acetaminophen/ Hydrocodone Bitart ([place] (5/325)) 2 tab Q4H PRN PO Pain 6-10 Last administered on 06/15/17 08:58; Admin Dose 2 TAB; Start 06/12/17 at 17:30 Acetaminophen/ Hydrocodone Bitart ([place] (5/325)) 1 tab Q4H PRN PO Pain 1-5; Start 06/12/17 at 17:30 Hydromorphone HCl (Dilaudid) 0.5 mg Q2H PRN IV Breakthrough PAIN Last administered on 06/15/17 04:21; Admin Dose 0.5 MG; Start 06/12/17 at 17:30 EAN INIGUEZ Jun 15, 2017 10:48
--- NOTE | 2017-06-15 11:18 | PN ---
Date/Time of Note Date/Time of Note DATE: 06/15/17 TIME: 11:13 Assessment/Plan Lines/Catheters IV Catheter Type (from [facility]): Peripheral IV Shahid in Place (from [facility]): Yes Assessment/Plan Chief Complaint/Hosp Course 1. Acute pancreatitis: likely 2/2 cholelithiasis amylase/lipase normalized. lap amy 06/12: 2. 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 Leukocytosis with bandemia: likely 2/2 above; normalized. afebrile -supportive 3. Anemia: h/h lower; no acute bleed noted -monitor 4. Fluid overload with pleural effusion 2nd pancreatitis and generalized inflammation -judicious fluid management -gentle diuretics 5. Hyperbilirubinemia: 2/2 above; normalized -supportive 6. Hypocalcemia with hypoalbuminemia: likely 2/2 malnutrition +/- inflammation -supportive -nutrition optimization 7. Thrombocytosis: likely reactive -monitor -dvt prophylaxis 8. Hypoalbuminemia, multifactorial -nutritional optimization 9. Liver steatosis: path: Mild steatosis with subcapsular focal chronic portal inflammation and subcapsular focal portal and septal fibrosis -lifestyle modification Patient seen and examined in collaboration with Dr. Zohaib Gaytan Problems: Subjective 24 Hr Interval Summary Feeling better. Abdominal pain improved. Ambulating around hallway. +flatus. Tolerating diet. No fevers, chills, linder, dizziness,, cp, palpitations, sob, cough , n/v/d. Exam/Review of Systems Vital Signs Vitals Vital Signs Date Time Temp Pulse Resp B/P Pulse Ox O2 Delivery O2 Flow Rate FiO2 06/15/17 20:59 98.2 74 18 134/61 96 06/15/17 20:09 21 06/14/17 08:00 Nasal Cannula 2.0 Intake and Output 06/14/17 06/14/17 06/15/17 15:00 23:00 07:00 Intake Total 350 ml 880 ml 300 ml Output Total 30 ml 400 ml 920 ml Balance 320 ml 480 ml -620 ml Exam Free Text/Dictation Constitutional: alert, oriented, well developed, diaphoretic Psych: nl mood Head: atraumatic, normocephalic Eyes: nl lids, nl sclera ENMT: No mucosa pink and moist Neck: supple, min jvd Respiratory: crackles; diminished at bases Cardiovascular: regular rate and rhythm, No murmurs/extra sounds Gastrointestinal: Distended (min), guarding, min tender, soledad with serosanguineous drainage; incision sites dry, bowel sounds x 4 quads Genitourinary - Female: No CVA tenderness Musculoskeletal: nl extremities to inspection Extremities: normal pulses, No edema Neurological: nl mental status, nl speech, nl strength Skin: nl turgor, no discoloration Results Result Diagram: 06/15/17 0506 06/15/17 0506 DIDI MCCAIN NP Jun 15, 2017 11:18 DIDI MCCAIN NP Jun 15, 2017 11:18
--- NOTE | 2017-06-15 12:00 | CONS ---
Date/Time of Note Date/Time of Note DATE: 06/15/17 TIME: 11:59 Assessment/Plan Assessment/Plan Additional Assessment/Plan Additional Assessment/Plan 1. Acute pancreatitis most probably related to the passage of bile duct stone, much better amylase lipase completely normal 2. Hypertension 3. Kidneys stone by history 4. UTI 5. Leukocytosis which is trending down. 6. Jaundice, bilirubin trending down 7. Hyponatremia 8. Status post a cholecystomy. 9. Anemia Plan Continue postop care Physical therapy to assist in ambulation Discussed with the family Consultation Date/Type/Reason Admit Date/Time May 30, 2017 at 22:37 Initial Consult Date 05/31/17 Type of Consultation: cardiology Referring Provider: KULDEEP OTTO MD 24 HR Interval Summary Free Text/Dictation Patient is ambulating. Still complains of pain in the right upper quadrant Constitutional: improved Exam/Review of Systems Vital Signs Vitals Vital Signs Date Time Temp Pulse Resp B/P Pulse Ox O2 Delivery O2 Flow Rate FiO2 06/15/17 07:47 98.1 78 16 138/60 95 06/15/17 01:23 21 06/14/17 08:00 Nasal Cannula 2.0 Intake and Output 06/14/17 06/14/17 06/15/17 15:00 23:00 07:00 Intake Total 350 ml 880 ml 300 ml Output Total 30 ml 400 ml 920 ml Balance 320 ml 480 ml -620 ml Exam Constitutional: alert, oriented, well developed Psych: nl mood/affect, no complaints Head: atraumatic, normocephalic Eyes: EOMI, PERRL, nl conjunctiva, nl lids, nl sclera ENMT: nl external ears & nose, nl lips & teeth, nl nasal mucosa & septum Neck: non-tender, supple Respiratory: clear to auscultation, normal air movement Cardiovascular: nl pulses, regular rate and rhythm Gastrointestinal: nl liver, spleen, non-tender, soft Musculoskeletal: nl extremities to inspection, nl gait and stance Extremities: normal pulses Neurological: VISCERA WASHER II-XII intact, nl mental status, nl speech, nl strength Skin: nl turgor, No rash or lesions Lymph: nl lymph nodes Results Result Diagram: 06/15/17 0506 06/15/17 0506 Results 24 hrs Laboratory Tests Test 06/15/17 05:06 White Blood Count 8.7 Red Blood Count 3.09 L Hemoglobin 8.0 L Hematocrit 26.7 L Mean Corpuscular Volume 86.4 Mean Corpuscular Hemoglobin 25.9 L Mean Corpuscular Hemoglobin Concent 30.0 L Red Cell Distribution Width 13.6 Platelet Count 429 H Mean Platelet Volume 9.5 Neutrophils % 77.6 H Lymphocytes % 10.7 L Monocytes % 9.0 Eosinophils % 1.6 Basophils % 0.3 Nucleated Red Blood Cells % 0.0 Neutrophils # 6.8 Lymphocytes # 0.9 Monocytes # 0.8 Eosinophils # 0.1 Basophils # 0.0 Nucleated Red Blood Cells # 0.0 Sodium Level 140 Potassium Level 4.1 Chloride Level 101 Carbon Dioxide Level 28 Anion Gap 15 Blood Urea Nitrogen 8 Creatinine 0.77 Glucose Level 112 Calcium Level 8.1 L Total Bilirubin 0.4 Direct Bilirubin 0.00 Indirect Bilirubin 0.4 Aspartate Amino Transf (AST/SGOT) 38 Alanine Aminotransferase (ALT/SGPT) 39 Alkaline Phosphatase 84 Total Protein 6.4 Albumin 3.0 L Globulin 3.40 H Albumin/Globulin Ratio 0.88 Medications Medications Current Medications Ondansetron HCl (Zofran Inj) 4 mg Q6H PRN IV NAUSEA AND/OR VOMITING Last administered on 06/12/17 17:33; Admin Dose 4 MG; Start 05/31/17 at 00:30 Pantoprazole (Protonix Iv) 40 mg DAILY@06 IV Last administered on 06/15/17 05: 38; Admin Dose 40 MG; Start 05/31/17 at 06:00 Acetaminophen (Tylenol Tab) 650 mg Q6H PRN PO PAIN AND OR ELEVATED TEMP Last administered on 06/14/17 02:33; Admin Dose 650 MG; Start 05/31/17 at 00:30 Dorzolamide/ Timolol (Cosopt) 1 drop BID LEFT EYE Last administered on 08:48; Admin Dose 1 DROP; Start 06/01/17 at 09:00 Latanoprost (Xalatan) 1 drop HS BOTH EYES Last administered on 06/14/17 20:52 ; Admin Dose 1 DROP; Start 06/01/17 at 21:00 Clonidine HCl 1 patch 1 patch Q7D TRANSDERM Last administered on 06/08/17 15: 03; Admin Dose 1 PATCH; Start 06/01/17 at 14:00 Potassium Chloride/Dextrose/ Sod Cl (D5-1/4ns + KCl 20 Meq) 1,000 ml @ 0 mls/ hr Q20H IV Last administered on 06/13/17 18:39; Admin Dose 50 MLS/HR; Start at 19:30 Bisacodyl (Dulcolax Supp) 10 mg DAILY PRN [place] CONSTIPATION Last administered on 06/07/17 21:13; Admin Dose 10 MG; Start 06/04/17 at 16:30 Guaifenesin/ Codeine Phosphate (Robitussin Ac Liquid Cup) 5 ml Q6H PRN PO COUGH Last administered on 06/07/17 21:12; Admin Dose 5 ML; Start 06/05/17 at 21:30 Hydralazine HCl (Apresoline) 10 mg Q4H PRN IV SBP>160; Start 06/08/17 at 17:00 Acetaminophen/ Hydrocodone Bitart ([place] (5/325)) 2 tab Q4H PRN PO Pain 6-10 Last administered on 06/15/17 08:58; Admin Dose 2 TAB; Start 06/12/17 at 17:30 Acetaminophen/ Hydrocodone Bitart ([place] (5/325)) 1 tab Q4H PRN PO Pain 1-5; Start 06/12/17 at 17:30 Hydromorphone HCl (Dilaudid) 0.5 mg Q2H PRN IV Breakthrough PAIN Last administered on 06/15/17 04:21; Admin Dose 0.5 MG; Start 06/12/17 at 17:30 KILEY MATTHEW MD Jun 15, 2017 12:00
--- NOTE | 2017-06-15 12:28 | CONS ---
Date/Time of Note Date/Time of Note DATE: 06/15/17 TIME: 12:26 Assessment/Plan Assessment/Plan Chief Complaint/Hosp Course IMP: 1.pre-op for possible amy. Ok to proceed to OR at moderate risk without further noninvasive evaluation. Now post-op s/p Lap amy 2.abnl ecg-negative trop x 3/NL EF by echo this admit 3.HTN 4.[id number] s/p lap amy 5.Cholelithiasis 6. Edema Recc -Pain control -Continue clonidine TTS and continue hydralazine IVP PRN -Follow volume status closely -Routine post-op care Problems: Consultation Date/Type/Reason Admit Date/Time May 30, 2017 at 22:37 Initial Consult Date 05/31/17 Type of Consultation: cardiology Reason for Consultation HTN Referring Provider: KULDEEP OTTO MD Exam/Review of Systems Vital Signs Vitals Vital Signs Date Time Temp Pulse Resp B/P Pulse Ox O2 Delivery O2 Flow Rate FiO2 06/15/17 07:47 98.1 78 16 138/60 95 06/15/17 01:23 21 06/14/17 08:00 Nasal Cannula 2.0 Intake and Output 06/14/17 06/14/17 06/15/17 15:00 23:00 07:00 Intake Total 350 ml 880 ml 300 ml Output Total 30 ml 400 ml 920 ml Balance 320 ml 480 ml -620 ml Exam Review of Systems: CONSTITUTIONAL: No fevers, chills. PULMONARY: No sob CARDIOVASCULAR: No chest pain/palpitations GASTROINTESTINAL: abd pain GENITOURINARY: No hematuria/dysuria. MUSCULOSKELETAL: No myagias/arthalgias. PSYCHIATRIC: The patient denies depression. NEUROLOGIC: No weakness Constitutional: alert Psych: no complaints Head: normocephalic ENMT: mucosa pink and moist Neck: jvd (8-9 cm wate3r), supple Respiratory: clear to auscultation Cardiovascular: regular rate and rhythm Gastrointestinal: soft, surgical scars (well healing), tender Musculoskeletal: muscle tone (normal) Extremities: edema (none) Neurological: other (No focal deficits) Results Result Diagram: 06/15/17 0506 06/15/17 0506 Results 24 hrs Laboratory Tests Test 06/15/17 05:06 White Blood Count 8.7 Red Blood Count 3.09 L Hemoglobin 8.0 L Hematocrit 26.7 L Mean Corpuscular Volume 86.4 Mean Corpuscular Hemoglobin 25.9 L Mean Corpuscular Hemoglobin Concent 30.0 L Red Cell Distribution Width 13.6 Platelet Count 429 H Mean Platelet Volume 9.5 Neutrophils % 77.6 H Lymphocytes % 10.7 L Monocytes % 9.0 Eosinophils % 1.6 Basophils % 0.3 Nucleated Red Blood Cells % 0.0 Neutrophils # 6.8 Lymphocytes # 0.9 Monocytes # 0.8 Eosinophils # 0.1 Basophils # 0.0 Nucleated Red Blood Cells # 0.0 Sodium Level 140 Potassium Level 4.1 Chloride Level 101 Carbon Dioxide Level 28 Anion Gap 15 Blood Urea Nitrogen 8 Creatinine 0.77 Glucose Level 112 Calcium Level 8.1 L Total Bilirubin 0.4 Direct Bilirubin 0.00 Indirect Bilirubin 0.4 Aspartate Amino Transf (AST/SGOT) 38 Alanine Aminotransferase (ALT/SGPT) 39 Alkaline Phosphatase 84 Total Protein 6.4 Albumin 3.0 L Globulin 3.40 H Albumin/Globulin Ratio 0.88 Medications Medications Current Medications Ondansetron HCl (Zofran Inj) 4 mg Q6H PRN IV NAUSEA AND/OR VOMITING Last administered on 06/12/17 17:33; Admin Dose 4 MG; Start 05/31/17 at 00:30 Pantoprazole (Protonix Iv) 40 mg DAILY@06 IV Last administered on 06/15/17 05: 38; Admin Dose 40 MG; Start 05/31/17 at 06:00 Acetaminophen (Tylenol Tab) 650 mg Q6H PRN PO PAIN AND OR ELEVATED TEMP Last administered on 06/14/17 02:33; Admin Dose 650 MG; Start 05/31/17 at 00:30 Dorzolamide/ Timolol (Cosopt) 1 drop BID LEFT EYE Last administered on 08:48; Admin Dose 1 DROP; Start 06/01/17 at 09:00 Latanoprost (Xalatan) 1 drop HS BOTH EYES Last administered on 06/14/17 20:52 ; Admin Dose 1 DROP; Start 06/01/17 at 21:00 Clonidine HCl 1 patch 1 patch Q7D TRANSDERM Last administered on 06/08/17 15: 03; Admin Dose 1 PATCH; Start 06/01/17 at 14:00 Potassium Chloride/Dextrose/ Sod Cl (D5-1/4ns + KCl 20 Meq) 1,000 ml @ 0 mls/ hr Q20H IV Last administered on 06/13/17 18:39; Admin Dose 50 MLS/HR; Start at 19:30 Bisacodyl (Dulcolax Supp) 10 mg DAILY PRN [place] CONSTIPATION Last administered on 06/07/17 21:13; Admin Dose 10 MG; Start 06/04/17 at 16:30 Guaifenesin/ Codeine Phosphate (Robitussin Ac Liquid Cup) 5 ml Q6H PRN PO COUGH Last administered on 06/07/17 21:12; Admin Dose 5 ML; Start 06/05/17 at 21:30 Hydralazine HCl (Apresoline) 10 mg Q4H PRN IV SBP>160; Start 06/08/17 at 17:00 Acetaminophen/ Hydrocodone Bitart ([place] (5/325)) 2 tab Q4H PRN PO Pain 6-10 Last administered on 06/15/17 08:58; Admin Dose 2 TAB; Start 06/12/17 at 17:30 Acetaminophen/ Hydrocodone Bitart ([place] (5/325)) 1 tab Q4H PRN PO Pain 1-5; Start 06/12/17 at 17:30 Hydromorphone HCl (Dilaudid) 0.5 mg Q2H PRN IV Breakthrough PAIN Last administered on 06/15/17 04:21; Admin Dose 0.5 MG; Start 06/12/17 at 17:30 DANIELLE DELVALLE Jun 15, 2017 12:28
[2017-06-15] MEDS: CLONIDINE 0.1 MG/24 HR PATCH TRANSDERM SCH (13:24)
[2017-06-15 15:23] VITALS: BP 112/53; RESP 16
[2017-06-15 20:59] VITALS: BP 134/61; RESP 18
[2017-06-15] MEDS: LATANOPROST 0.005% 2.5 ML OPH BOTH EYES SCH (21:42)
[2017-06-16] MEDS: ALBUTEROL/IPRATROPIUM (NEB) 3 ML AMP HHN SCH ×3 (01:27→13:32)
[2017-06-16] MEDS: HYDROCODONE/APAP (5/325) TAB PO PRN ×4 (01:56→15:45)
[2017-06-16 02:00] VITALS: BP 121/56; RESP 18
[2017-06-16] MEDS: PANTOPRAZOLE 40 MG INJ IV SCH (05:44)
[2017-06-16] MEDS: BISACODYL 10 MG SUPP PR PRN (06:03)
[2017-06-16 07:59] VITALS: BP 125/58; RESP 18
[2017-06-16] MEDS: D5-0.2 NACL + KCL 20 MEQ 1,000 ML IV SCH (10:08)
[2017-06-16] MEDS: DORZOLAMIDE/TIMOLOL 10 ML OPH LEFT EYE SCH (10:08)
--- NOTE | 2017-06-16 10:18 | CONS ---
Date/Time of Note Date/Time of Note DATE: 06/16/17 TIME: 10:17 Assessment/Plan Assessment/Plan Additional Assessment/Plan 1.pre-op for possible amy. Ok to proceed to OR at moderate risk without further noninvasive evaluation. Now post-op s/p Lap amy - recovering, no cardiac instability now 2.abnl ecg-negative trop x 3/NL EF by echo this admit - no CP now 3.HTN - well Rx 4.Cbumqaqllloz-khlb-fp s/p lap amy - stable 5.Cholelithiasis 6. Edema - resolving Consultation Date/Type/Reason Admit Date/Time May 30, 2017 at 22:37 Initial Consult Date 05/31/17 Type of Consultation: cardiology Referring Provider: KULDEEP OTTO MD 24 HR Interval Summary Free Text/Dictation post-op s/p Lap amy - recovering, no cardiac instability now - no CP, no palpitations ROS: No fever, no chills, no nausea, no vomiting, no diarrhea/constipation No recent weight changes No chest pain, no PND, no orthopnea No dizziness, blurred vision No thirst, no heat or cold intolerance Exam/Review of Systems Vital Signs Vitals Vital Signs Date Time Temp Pulse Resp B/P Pulse Ox O2 Delivery O2 Flow Rate FiO2 06/16/17 08:48 21 06/16/17 07:59 97.8 66 18 125/58 97 06/15/17 20:00 Room Air 06/14/17 08:00 2.0 Intake and Output 06/15/17 06/15/17 06/16/17 15:00 23:00 07:00 Intake Total 480 ml Output Total 20 ml 600 ml Balance -20 ml -120 ml Exam General: WN/WD/NAD, AOx 2-3 HEENT: Unicetric/atraumatic/EOMI (follow commands) NECK: JVD elevated, no thyromegaly Lymph: no lymphadenopathy HEART: regular with no S3, II/ systolic murmur at apex LUNGS: Coarse sounds ABD: soft, NT, ND, +BS : Intact Neuro: non focal SKIN: chronic changes EXT: trace edema Results Result Diagram: 06/15/17 0506 06/15/17 0506 Medications Medications Current Medications Ondansetron HCl (Zofran Inj) 4 mg Q6H PRN IV NAUSEA AND/OR VOMITING Last administered on 06/12/17 17:33; Admin Dose 4 MG; Start 05/31/17 at 00:30 Pantoprazole (Protonix Iv) 40 mg DAILY@06 IV Last administered on 06/16/17 05: 44; Admin Dose 40 MG; Start 05/31/17 at 06:00 Acetaminophen (Tylenol Tab) 650 mg Q6H PRN PO PAIN AND OR ELEVATED TEMP Last administered on 06/14/17 02:33; Admin Dose 650 MG; Start 05/31/17 at 00:30 Dorzolamide/ Timolol (Cosopt) 1 drop BID LEFT EYE Last administered on 10:08; Admin Dose 1 DROP; Start 06/01/17 at 09:00 Latanoprost (Xalatan) 1 drop HS BOTH EYES Last administered on 06/15/17 21:42 ; Admin Dose 1 DROP; Start 06/01/17 at 21:00 Clonidine HCl 1 patch 1 patch Q7D TRANSDERM Last administered on 06/15/17 13: 24; Admin Dose 1 PATCH; Start 06/01/17 at 14:00 Potassium Chloride/Dextrose/ Sod Cl (D5-1/4ns + KCl 20 Meq) 1,000 ml @ 0 mls/ hr Q20H IV Last administered on 06/16/17 10:08; Admin Dose 20 MLS/HR; Start at 19:30 Bisacodyl (Dulcolax Supp) 10 mg DAILY PRN [place] CONSTIPATION Last administered on 06/16/17 06:03; Admin Dose 10 MG; Start 06/04/17 at 16:30 Guaifenesin/ Codeine Phosphate (Robitussin Ac Liquid Cup) 5 ml Q6H PRN PO COUGH Last administered on 06/07/17 21:12; Admin Dose 5 ML; Start 06/05/17 at 21:30 Hydralazine HCl (Apresoline) 10 mg Q4H PRN IV SBP>160; Start 06/08/17 at 17:00 Acetaminophen/ Hydrocodone Bitart ([place] (5/325)) 2 tab Q4H PRN PO Pain 6-10 Last administered on 06/16/17 05:51; Admin Dose 2 TAB; Start 06/12/17 at 17:30 Acetaminophen/ Hydrocodone Bitart ([place] (5/325)) 1 tab Q4H PRN PO Pain 1-5 Last administered on 06/15/17 21:43; Admin Dose 1 TAB; Start 06/12/17 at 17:30 Hydromorphone HCl (Dilaudid) 0.5 mg Q2H PRN IV Breakthrough PAIN Last administered on 06/15/17 04:21; Admin Dose 0.5 MG; Start 06/12/17 at 17:30 CHAPARRO ROBERTS MD Jun 16, 2017 10:18
--- NOTE | 2017-06-16 10:24 | PDOCDIS ---
Discharge Instructions CONDITION Patient Condition: Good HOME CARE INSTRUCTIONS: Diet Instructions: Low Fat /CholesterolSpecial Diet: Soft, low cholesterol, low fat, 2 gm Na ACTIVITY: Activity Restrictions: Slowly Increase Activity EAN INIGUEZ Jun 16, 2017 10:24
[2017-06-16] MEDS ORDERED: BISA10SU75 PR (10:27)
[2017-06-16] MEDS ORDERED: PANT20TA2 PO (10:27)
[2017-06-16] MEDS ORDERED: FERR240T9 PO (10:27)
--- NOTE | 2017-06-16 10:29 | PN ---
Date/Time of Note Date/Time of Note DATE: 06/16/17 TIME: 10:19 Assessment/Plan Lines/Catheters IV Catheter Type (from [facility]): Peripheral IV Shahid in Place (from [facility]): Yes Assessment/Plan Chief Complaint/Hosp Course 1. Acute pancreatitis: likely 2/2 cholelithiasis amylase/lipase normalized. lap amy 06/12: 2. 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 Leukocytosis with bandemia: likely 2/2 above; normalized. afebrile -supportive 3. Anemia: h/h lower; no acute bleed noted -monitor 4. Fluid overload with pleural effusion 2nd pancreatitis and generalized inflammation -judicious fluid management -gentle diuretics 5. Hyperbilirubinemia: 2/2 above; normalized -supportive 6. Hypocalcemia with hypoalbuminemia: likely 2/2 malnutrition +/- inflammation -supportive -nutrition optimization 7. Thrombocytosis: likely reactive -monitor -dvt prophylaxis 8. Hypoalbuminemia, multifactorial -nutritional optimization 9. Liver steatosis: path: Mild steatosis with subcapsular focal chronic portal inflammation and subcapsular focal portal and septal fibrosis -lifestyle modification Patient seen and examined in collaboration with Dr. Zohaib Gaytan Problems: Subjective 24 Hr Interval Summary Pain improved. +bowel function. Tolerating diet. Up with therapy. SOLEDAD site-no drainage. No fevers/chills. No c/o linder, dizziness, cp, palpitations, n/v/d, dysuria. Exam/Review of Systems Vital Signs Vitals Vital Signs Date Time Temp Pulse Resp B/P Pulse Ox O2 Delivery O2 Flow Rate FiO2 06/16/17 08:48 21 06/16/17 07:59 97.8 66 18 125/58 97 06/15/17 20:00 Room Air 06/14/17 08:00 2.0 Intake and Output 06/15/17 06/15/17 06/16/17 15:00 23:00 07:00 Intake Total 480 ml Output Total 20 ml 600 ml Balance -20 ml -120 ml Exam Free Text/Dictation Constitutional: alert, oriented, well developed, diaphoretic Psych: nl mood Head: atraumatic, normocephalic Eyes: nl lids, nl sclera ENMT: No mucosa pink and moist Neck: supple, min jvd Respiratory: diminished at bases Cardiovascular: regular rate and rhythm, No murmurs/extra sounds Gastrointestinal: Distended (min), guarding, min tender, soledad site dry, bowel sounds x 4 quads Genitourinary - Female: No CVA tenderness Musculoskeletal: nl extremities to inspection Extremities: normal pulses, No edema Neurological: nl mental status, nl speech, nl strength Skin: nl turgor, no discoloration Results Result Diagram: 06/15/17 0506 06/15/17 0506 DIDI MCCAIN NP Jun 16, 2017 10:29
[2017-06-16] MEDS ORDERED: HYDR-3498 PO (10:30)
--- NOTE | 2017-06-16 10:33 | PN ---
Date/Time of Note Date/Time of Note DATE: 06/16/17 TIME: 10:31 Assessment/Plan VTE Prophylaxis VTE Prophylaxis Intervention: ambulation Lines/Catheters [facility] Peripheral IV Urinary Cath still in place: No Assessment/Plan Chief Complaint/Hosp Course 1. Acute pancreatitis. 2 Cholelithiasis. Sp lap cholecystectomy 3.SIRS 3.electrolyte imbalance Problems: Assessment/Plan 1. Discharge SNF with all meds Subjective 24 Hr Interval Summary Constitutional: improved, no complaints Exam/Review of Systems Vital Signs Vitals Vital Signs Date Time Temp Pulse Resp B/P Pulse Ox O2 Delivery O2 Flow Rate FiO2 06/16/17 08:48 21 06/16/17 07:59 97.8 66 18 125/58 97 06/15/17 20:00 Room Air 06/14/17 08:00 2.0 Intake and Output 06/15/17 06/15/17 06/16/17 15:00 23:00 07:00 Intake Total 480 ml Output Total 20 ml 600 ml Balance -20 ml -120 ml Exam Head: normocephalic Neck: supple Respiratory: clear to auscultation Cardiovascular: regular rate and rhythm Gastrointestinal: soft Results Result Diagram: 06/15/17 0506 06/15/17 0506 Medications Medications Current Medications Ondansetron HCl (Zofran Inj) 4 mg Q6H PRN IV NAUSEA AND/OR VOMITING Last administered on 06/12/17 17:33; Admin Dose 4 MG; Start 05/31/17 at 00:30 Pantoprazole (Protonix Iv) 40 mg DAILY@06 IV Last administered on 06/16/17 05: 44; Admin Dose 40 MG; Start 05/31/17 at 06:00 Acetaminophen (Tylenol Tab) 650 mg Q6H PRN PO PAIN AND OR ELEVATED TEMP Last administered on 06/14/17 02:33; Admin Dose 650 MG; Start 05/31/17 at 00:30 Dorzolamide/ Timolol (Cosopt) 1 drop BID LEFT EYE Last administered on 10:08; Admin Dose 1 DROP; Start 06/01/17 at 09:00 Latanoprost (Xalatan) 1 drop HS BOTH EYES Last administered on 06/15/17 21:42 ; Admin Dose 1 DROP; Start 06/01/17 at 21:00 Clonidine HCl 1 patch 1 patch Q7D TRANSDERM Last administered on 06/15/17 13: 24; Admin Dose 1 PATCH; Start 06/01/17 at 14:00 Potassium Chloride/Dextrose/ Sod Cl (D5-1/4ns + KCl 20 Meq) 1,000 ml @ 0 mls/ hr Q20H IV Last administered on 06/16/17 10:08; Admin Dose 20 MLS/HR; Start at 19:30 Bisacodyl (Dulcolax Supp) 10 mg DAILY PRN [place] CONSTIPATION Last administered on 06/16/17 06:03; Admin Dose 10 MG; Start 06/04/17 at 16:30 Guaifenesin/ Codeine Phosphate (Robitussin Ac Liquid Cup) 5 ml Q6H PRN PO COUGH Last administered on 06/07/17 21:12; Admin Dose 5 ML; Start 06/05/17 at 21:30 Hydralazine HCl (Apresoline) 10 mg Q4H PRN IV SBP>160; Start 06/08/17 at 17:00 Acetaminophen/ Hydrocodone Bitart ([place] (5/325)) 2 tab Q4H PRN PO Pain 6-10 Last administered on 06/16/17 05:51; Admin Dose 2 TAB; Start 06/12/17 at 17:30 Acetaminophen/ Hydrocodone Bitart ([place] (5/325)) 1 tab Q4H PRN PO Pain 1-5 Last administered on 06/15/17 21:43; Admin Dose 1 TAB; Start 06/12/17 at 17:30 Hydromorphone HCl (Dilaudid) 0.5 mg Q2H PRN IV Breakthrough PAIN Last administered on 06/15/17 04:21; Admin Dose 0.5 MG; Start 06/12/17 at 17:30 EAN INIGUEZ Jun 16, 2017 10:33
--- NOTE | 2017-06-16 12:41 | CONS ---
Date/Time of Note Date/Time of Note DATE: 06/16/17 TIME: 12:40 Assessment/Plan Assessment/Plan Additional Assessment/Plan Additional Assessment/Plan Additional Assessment/Plan 1. Acute pancreatitis most probably related to the passage of bile duct stone, much better amylase lipase completely normal 2. Hypertension 3. Kidneys stone by history 4. UTI 5. Leukocytosis which is trending down. 6. Jaundice, bilirubin trending down 7. Hyponatremia 8. Status post a cholecystomy. 9. Anemia Plan Continue postop care Physical therapy to assist in ambulation Discussed with the family Patient is stable from GI point Consultation Date/Type/Reason Admit Date/Time May 30, 2017 at 22:37 Initial Consult Date 05/31/17 Type of Consultation: cardiology Referring Provider: KULDEEP OTTO MD 24 HR Interval Summary Constitutional: improved Exam/Review of Systems Vital Signs Vitals Vital Signs Date Time Temp Pulse Resp B/P Pulse Ox O2 Delivery O2 Flow Rate FiO2 06/16/17 08:48 21 06/16/17 07:59 97.8 66 18 125/58 97 06/15/17 20:00 Room Air 06/14/17 08:00 2.0 Intake and Output 06/15/17 06/15/17 06/16/17 15:00 23:00 07:00 Intake Total 480 ml Output Total 20 ml 600 ml Balance -20 ml -120 ml Exam Constitutional: alert, oriented, well developed Psych: nl mood/affect, no complaints Head: atraumatic, normocephalic Eyes: EOMI, PERRL, nl conjunctiva, nl lids, nl sclera ENMT: nl external ears & nose, nl lips & teeth, nl nasal mucosa & septum Neck: non-tender, supple Respiratory: clear to auscultation, normal air movement Cardiovascular: nl pulses, regular rate and rhythm Gastrointestinal: nl liver, spleen, non-tender, soft Musculoskeletal: nl extremities to inspection, nl gait and stance Extremities: normal pulses Neurological: HOSPICE COMMUNITY LIAISON II-XII intact, nl mental status, nl speech, nl strength Skin: nl turgor, No rash or lesions Lymph: nl lymph nodes Results Result Diagram: 06/15/17 0506 06/15/17 0506 Medications Medications Current Medications Ondansetron HCl (Zofran Inj) 4 mg Q6H PRN IV NAUSEA AND/OR VOMITING Last administered on 06/12/17 17:33; Admin Dose 4 MG; Start 05/31/17 at 00:30 Pantoprazole (Protonix Iv) 40 mg DAILY@06 IV Last administered on 06/16/17 05: 44; Admin Dose 40 MG; Start 05/31/17 at 06:00 Acetaminophen (Tylenol Tab) 650 mg Q6H PRN PO PAIN AND OR ELEVATED TEMP Last administered on 06/14/17 02:33; Admin Dose 650 MG; Start 05/31/17 at 00:30 Dorzolamide/ Timolol (Cosopt) 1 drop BID LEFT EYE Last administered on 10:08; Admin Dose 1 DROP; Start 06/01/17 at 09:00 Latanoprost (Xalatan) 1 drop HS BOTH EYES Last administered on 06/15/17 21:42 ; Admin Dose 1 DROP; Start 06/01/17 at 21:00 Clonidine HCl 1 patch 1 patch Q7D TRANSDERM Last administered on 06/15/17 13: 24; Admin Dose 1 PATCH; Start 06/01/17 at 14:00 Potassium Chloride/Dextrose/ Sod Cl (D5-1/4ns + KCl 20 Meq) 1,000 ml @ 0 mls/ hr Q20H IV Last administered on 06/16/17 10:08; Admin Dose 20 MLS/HR; Start at 19:30 Bisacodyl (Dulcolax Supp) 10 mg DAILY PRN [place] CONSTIPATION Last administered on 06/16/17 06:03; Admin Dose 10 MG; Start 06/04/17 at 16:30 Guaifenesin/ Codeine Phosphate (Robitussin Ac Liquid Cup) 5 ml Q6H PRN PO COUGH Last administered on 06/07/17 21:12; Admin Dose 5 ML; Start 06/05/17 at 21:30 Hydralazine HCl (Apresoline) 10 mg Q4H PRN IV SBP>160; Start 06/08/17 at 17:00 Acetaminophen/ Hydrocodone Bitart ([place] (5/325)) 2 tab Q4H PRN PO Pain 6-10 Last administered on 06/16/17 11:39; Admin Dose 2 TAB; Start 06/12/17 at 17:30 Acetaminophen/ Hydrocodone Bitart ([place] (5/325)) 1 tab Q4H PRN PO Pain 1-5 Last administered on 06/15/17 21:43; Admin Dose 1 TAB; Start 06/12/17 at 17:30 Hydromorphone HCl (Dilaudid) 0.5 mg Q2H PRN IV Breakthrough PAIN Last administered on 06/15/17 04:21; Admin Dose 0.5 MG; Start 06/12/17 at 17:30 KILEY MATTHEW MD Jun 16, 2017 12:41
[2017-06-16 14:05] VITALS: BP 126/61; RESP 18
--- NOTE | 2017-06-17 20:58 | DS ---
Date/Time of Note Date/Time of Note DATE: 06/17/17 TIME: 20:54 Discharge Summary Admission/Discharge Info Admit Date/Time May 30, 2017 at 22:37 Discharge Date/Time Jun 16, 2017 at 17:00 Discharge Diagnosis Pancreatis, s/p cholecystectomy Patient Condition: Good Consults Dr gaytan, Dr Garcia, dr Jenkins Procedures lap cholecystectomy Hx of Present Illness pt was admitted with abdominal pain, pancreatitis Hospital Course 1. Acute pancreatitis: likely 2/2 cholelithiasis amylase/lipase normalized. lap amy 06/12: 2. 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 Leukocytosis with bandemia: likely 2/2 above; normalized. afebrile -supportive 3. Anemia: h/h lower; no acute bleed noted -monitor 4. Fluid overload with pleural effusion 2nd pancreatitis and generalized inflammation -judicious fluid management -gentle diuretics 5. Hyperbilirubinemia: 2/2 above; normalized -supportive 6. Hypocalcemia with hypoalbuminemia: likely 2/2 malnutrition +/- inflammation -supportive -nutrition optimization 7. Thrombocytosis: likely reactive -monitor -dvt prophylaxis 8. Hypoalbuminemia, multifactorial -nutritional optimization 9. Liver steatosis: path: Mild steatosis with subcapsular focal chronic portal inflammation and subcapsular focal portal and septal fibrosis -lifestyle modification Patient seen and examined in collaboration with Dr. Zohaib Gaytan Home Meds Active Scripts Hydrocodone Bit-Acetaminophen (Hydrocodone Bit-APAP) 5-325MG Tablet, 2 TAB PO Q4H Y for Pain 6-10 for 14 Days, TAB Prov:ZENERIKEVEAN Clinton 06/16/17 Ferrous Gluconate (Iron) 240 Mg Tablet, 240 MG PO 2 HOURS AFTER MEALS for 14 Days, TAB Prov:ZENERIKEVEAN Clinton 06/16/17 Pantoprazole* (Protonix*) 20 Mg Tablet.dr, 20 MG PO BID for 30 Days, TAB Prov:EAN INIGUEZ 06/16/17 Bisacodyl* (Bisacodyl*) 10 Mg Supp, 10 MG [place] DAILY Y for CONSTIPATION for 30 Days, SUPP Prov:EAN INIGUEZ 06/16/17 Reported Medications Losartan Potassium* (Losartan Potassium*) 50 Mg Tablet, 50 MG PO QHS, TAB 05/31/17 Latanoprost (Xalatan) 2.5 Ml Drops, 1 DROP LEFT EYE QHS, #1 BOTTLE 05/31/17 Fluticasone Propionate (Flonase Allergy Relief) 9.9 Ml [place].susp, 1 SPRAY NASAL DAILY, #1 BOTTLE TO EACH NOSTRIL 05/31/17 Dorzolamide-Timolol* (Cosopt*) 2%-0.5% - 10 Ml Soln, 1 DROP BOTH EYES BID, BOTTLE 05/31/17 Aspirin (Aspirin) 81 Mg Chew, 81 MG PO DAILY, TAB.CHEW 05/31/17 Amlodipine Besylate (Amlodipine Besylate) 25 Gm Powder, 5 MG MC DAILY 05/31/17 Primary Care Provider EAN Cheatham Jun 17, 2017 20:58
--- NOTE | 2017-06-18 07:06 | CONS ---
DATE OF ADMISSION: 05/30/2017 DATE OF CONSULTATION: 06/07/2017 REASON FOR CONSULTATION: Preoperative evaluation. REQUESTING PHYSICIAN: Jonathon Whitaker MD HISTORY OF PRESENT ILLNESS: Christy is a 77-year-old female with a history of hypertension, gastroesophageal reflux disease, glaucoma, allergic rhinitis, who initially presented to an outside hospital, [facility] with epigastric pain and vomiting. Upon arrival at the outside hospital, temperature 98.2, blood pressure 129/61, pulse 61, respiratory rate 18, satting 98 percent. Patient's labs were notable for a lipase of 2830, glucose 174, white cell count of 12,000. Patient underwent abdominal and pelvic CT revealing cholelithiasis with peripancreatic inflammatory change and fluid around the pancreatic head and duodenum. Patient was thereafter transferred to [facility] due to insurance reasons. Upon arrival at [facility], temperature of 100.5, blood pressure 133/63, pulse 77, respiratory rate 18, satting 94 percent. Patient's labs: White cell count of , hemoglobin 10.9, platelet count 322, sodium of 141, potassium 3.4, creatinine 0.6, BUN 15, amylase 812, lipase 2611. UA negative. Patient underwent an MRCP revealing cholelithiasis with gallbladder distention, common bile duct dilatation without evidence of choledocholithiasis, extensive peripancreatic edema surrounding the head process extending into the right retroperitoneum. Patient underwent a chest x-ray revealing left ventricular enlargement with increased pulmonary vascularity suspicious for mild CHF. Patient underwent a KUB revealing cholelithiasis, mild extrahepatic biliary dilatation, coarsening of the liver echotexture with morphologic change of the liver suggesting underlying diffuse liver disease. Patient does not have labs currently in the chart for my review at this time. Patient has been admitted to the floor where she remains at this time, being treated with pain control. Patient is being followed by the Infectious Disease and GI services. Given the patient's symptoms, the patient is to undergo possible cholecystectomy. Given these findings, Cardiology consult has been requested. The patient at this time denies chest pain, shortness of breath. PAST MEDICAL HISTORY: As above in HPI. MEDICATIONS CURRENTLY IN THE HOSPITAL: 1. Potassium chloride. 2. Dulcolax. 3. Duoneb. 4. Hydralazine 5 mg IV push q.6. 5. Xalatan eye drops. 6. Clonidine patch every 7 days. 7. Cosopt. 8. Dilaudid. 9. Protonix. 10. Zofran. 11. Tylenol. ALLERGIES: AZITHROMYCIN. SOCIAL HISTORY: No tobacco, ETOH, or illicit drug use. FAMILY HISTORY: Negative for sudden cardiac or early CD. REVIEW OF SYSTEMS: As above in HPI. CONSTITUTIONAL: No fevers, chills. PULMONARY: No current shortness of breath. CARDIOVASCULAR: No current chest pain. GASTROINTESTINAL: Abdominal pain, nausea, vomiting. GENITOURINARY: No hematuria. MUSCULOSKELETAL: Degenerative joint disease. PSYCHIATRIC: No documented psychiatric history. NEUROLOGIC: No documented history of CVA. PHYSICAL EXAMINATION: VITAL SIGNS: Temperature of 98.2, blood pressure 140/65, pulse 100, respiratory rate 16, satting 97 percent. GENERAL APPEARANCE: The patient is alert, awake, complaining of mild abdominal discomfort. NECK: JVP approximately 8-9 cm of water. CHEST: Fair movement throughout. Mildly decreased breath sounds at the bases. HEART: Regular rate and rhythm. Normal S1, S2. A 1/6 systolic murmur, nondisplaced PMI. ABDOMEN: Positive bowel sounds, soft. EXTREMITIES: No pitting edema; 1+ pulses bilaterally, posterior tibial. LABORATORY: As above in HPI with most recently today: Sodium , . Creatinine 0.6, BUN of 11. Lipase today down to 274, amylase down to 123. White blood cell count 13, hemoglobin 8.8, platelet count of 299. IMAGING STUDIES: KUB from the revealing cholelithiasis, mild extrahepatic biliary dilatation, coarsening of the liver echotexture with morphologic change of the liver suggesting underlying diffuse liver disease. ECG: No electrocardiogram for my review at this time. IMPRESSION: 1. Preoperative evaluation prior to possible cholecystectomy. 2. Hypertension. 3. Dyslipidemia. 4. Pancreatitis, possible gallstone pancreatitis. 5. Cholelithiasis. 6. Anemia. 7. Leukocytosis. 8. Hypokalemia. RECOMMENDATIONS: 1. At this time would maintain the patient on telemetry monitoring to follow rhythm and rate control closely. 2. Would continue the patient's IV push hydralazine for blood pressure control. The patient is [id number]. 3. Will check a 2-D echocardiogram to further assess the patient's ejection fraction, wall motion, and any major valve abnormalities. 4. Complete a rule-out myocardial infarction to assure the patient has not had any recent coronary syndrome in anticipation of patient's upcoming surgery. 5. Would check a baseline electrocardiogram (EKG) now, repeat electrocardiogram in the morning to assess for any significant abnormalities changes. 6. Discontinue patient's clonidine patch for blood pressure control and continue the patient's pain control. Thank you for allowing me to take part in this care of this patient. I will continue to follow her closely with you . Dictated By: Bindu Duran /jai/ozzie /Document#: [id number] CC: Jonathon Whitaker MD;*[facility]*
--- NOTE | 2017-06-22 20:06 | OPR ---
Date/Time of Note Date/Time of Note DATE: 06/22/17 TIME: 20:04 Operative Report Procedure Date: Jun 12, 2017 Procedure Description Preoperative Diagnosis: Symptomatic cholelithiasis Gallstone pancreatitis Postoperative Diagnosis: Symptomatic cholelithiasis Abnormal liver color Gallstone pancreatitis Operation(s) Performed: 1. 3 port laparoscopic cholecystectomy 2. Laparoscopic liver wedge resection biopsy 3. Local anesthetic injection, [id number] Surgeon: RAJWINDER LANE MD Anesthesia: general, local, & regional Anesthesiologist: Estimated Blood Loss: ml's Specimens: Liver Gallbladder Tubes/Drains: 19 [place] Misbah Complications: None Pt Condition Post Procedure: stable Disposition: PACU Indications: 77-year-old female with gallstones, pancreatitis, and abdominal pain here for cholecystectomy. Risks include but are not limited to bleeding, infection, abscess, seroma, damage to intestines, damage to the liver, damage to biliary tree, hernia formation, chronic pain, biloma, need for reoperations or further surgeries, RI , stroke, PE, DVT, pneumonia, organ failures, or even . Procedure Description: Patient was brought and placed supine on the operating table SCDs were placed, preoperative antibiotics were administered, all pressure points were well-padded , and after induction of anesthesia patient was prepped and draped in usual sterile fashion and timeout was performed. Incision was made in the supraumbilical region, Veress was safely inserted, and after a negative SIP test , abdomen was insufflated to 15mmHg. Veress was removed and 5mm port was safely inserted. Laparoscopy was performed with a 5 mm 30 scope. No injuries were identified. The liver looks somewhat abnormal color. Gallbladder is without evidence of section. 12 mm port is placed in subxiphoid under direct visualization followed by another 5 mm port in the right upper quadrant. All port sites were injected with quarter percent Marcaine with epi and 1% lidocaine prior to any incisions. Bilateral transversus abdominis plane block was performed under laparoscopic visualization to aid with pain control intra-and postoperatively. Patient was placed in reverse Trendelenburg and right side up on gallbladder was retracted superolaterally. The gallbladder was large and distended. Using electrocautery and blunt dissection I was able to identify the cystic artery and cystic duct. The duct tapered into the gallbladder. Full critical angle view was identified. Both structures were clipped twice proximally and once distally and transected. [Since the duct was dilated, Endoloop was placed as well.] The gallbladder was taken off the liver with electrocautery. Hemostasis was obtained. Gallbladder was placed in an Endo Catch bag and removed through the subxiphoid port site. There was complete hemostasis. Due to the abnormality of the liver decision was made to perform liver wedge resection which was done with electrocautery and scissor with complete hemostasis right after. The specimen was sent to pathology for further evaluation. [19F misbah drain was placed through lateral incision to drain the liver and gb sites.] 12 mm made port site fascia was closed with Endo Close of an 0 Vicryl in a [id number] manner. Ports and CO2 were removed under direct visualization. Next complete hemostasis. Wounds were thoroughly irrigated skin was closed with 4-0 Monocryl in subcuticular fashion. Dermabond was applied. Patient was extubated and transferred to recovery room in stable condition and all counts were correct and the end of the operation 2.operation 2. RAJWINDER LANE MD Jun 22, 2017 20:06
== END 2017-06-16 17:00 | DRG 417 ==
LOC: MS2 22:37 → TEL 06-03 21:03 → MS2 06-07 22:16
PROVIDERS: ADMIT Internal Medicine Nephrology; ATTEND Internal Medicine Nephrology
PROC: 0FT44ZZ Resection of Gallbladder, Percutaneous Endoscopic Approach (ICD-10-PCS; principal; 2017-06-14)
PROC: 0FB04ZX Excision of Liver, Percutaneous Endoscopic Approach, Diagnostic (ICD-10-PCS; 2017-06-14)
DX: K85.10 Biliary acute pancreatitis without necrosis or infection (principal); J96.90 Respiratory failure, unspecified, unspecified whether with hypoxia or hypercapnia; R65.10 Systemic inflammatory response syndrome (SIRS) of non-infectious origin without acute organ dysfunction; I11.0 Hypertensive heart disease with heart failure; J44.0 Chronic obstructive pulmonary disease with (acute) lower respiratory infection; R00.1 Bradycardia, unspecified; R17 Unspecified jaundice; I50.9 Heart failure, unspecified; J44.1 Chronic obstructive pulmonary disease with (acute) exacerbation; E87.1 Hypo-osmolality and hyponatremia; K80.11 Calculus of gallbladder with chronic cholecystitis with obstruction; E83.51 Hypocalcemia; J20.9 Acute bronchitis, unspecified; K80.20 Calculus of gallbladder without cholecystitis without obstruction; D72.829 Elevated white blood cell count, unspecified; E87.6 Hypokalemia; I10 Essential (primary) hypertension; E88.09 Other disorders of plasma-protein metabolism, not elsewhere classified; K76.0 Fatty (change of) liver, not elsewhere classified
CPT/HCPCS: 71010; 74181; 76700; 80048; 80053; 80061; 81001; 82150; 82378; 83690; 84484; 85014; 85018; 85025; 85610; 86301; 87040; 87086; 88304; 88307; 88313; 93005; 93306; 94640; 94664; 97116; 97162; 97530; J1940; C9113; J0360; J0690; J0696; J1170; J2250; J2270; J2370; J2405; J2710; J2765; J2795; J3480; J7042